=== PATIENT | male | born 1950 | race Caucasian/White ===

== ENCOUNTER 2016-12-08 17:13 | Inpatient (IN) | payer MEDICARE ==
[~2016-12-08] VITALS: Ht 175.3 cm; Wt 71.7 kg
[~2016-12-08 17:13] MED LIST: ALEN70TA5 PO; ATOR10TA60 PO; CERT400S SQ; FOLI1TAB16 PO; HYDR200T PO; HYDR200T5 PO; LOSA50TA6 PO; MELA5TAB PO; OMEP20CA9 PO; PRED5TAB PO; TAMS0.4C97 PO; THIA100T4 PO; TRAM50TA PO; ZOLP5TAB PO
[2016-12-08] MEDS ORDERED: ONDANSETRON PF 4 MG/2 ML VIAL. IV ONE (19:30)
[2016-12-08] MEDS ORDERED: IV NORMAL SALINE 1000ML BAG 1,000 ML IV ONE (19:30)
[2016-12-08 19:36] LABS: BASO # 0.1 x10^3/uL (0.0-0.2); BASO % 2 % (0-3); EOS % 5 % (0-3); HEMATOCRIT 29.1 % (39.0-53.0); HEMOGLOBIN 9.4 g/dL (13.0-17.5); LYMPH # 0.6 x10^3/uL (1.0-4.8); LYMPH % 14 % (24-48); MEAN CORPUSCULAR HEMOGLOBIN 28 pg (25-35); MEAN CORPUSCULAR HGB CONC 32 g/dL (31-37); MEAN CORPUSCULAR VOLUME 86 fL (79-100); MONO % 15 % (0-9); NEUT % 65 % (31-73); PLATELET COUNT 50 x10^3/uL (140-400); RED BLOOD COUNT 3.39 x10^6/uL (4.30-5.70); RED CELL DISTRIBUTION WIDTH 15.4 % (11.5-14.5); WHITE BLOOD COUNT 4.6 x10^3/uL (4.0-11.0)
[2016-12-08 19:47] LABS: CALCIUM 10.2 mg/dL (8.5-10.1); CREATININE 2.8 mg/dL (0.7-1.3); GFR 22.6; POTASSIUM 3.9 mmol/L (3.5-5.1)
[2016-12-08 20:25] LABS: ALBUMIN 2.9 g/dL (3.4-5.0); DIRECT BILIRUBIN 4.4 mg/dL (0.0-0.2); TOTAL BILIRUBIN 6.3 mg/dL (0.2-1.0); TOTAL PROTEIN 8.4 g/dL (6.4-8.2)
[2016-12-08] MEDS ORDERED: ONDANSETRON PF 4 MG/2 ML VIAL. IV PRN (21:00)
[2016-12-08 21:08] LABS: INR 1.5 (0.8-1.1); PROTHROMBIN TIME PATIENT 17.1 SEC (11.7-14.0)
--- NOTE | 2016-12-08 21:12 | PHYS DOC ---
Past Medical History Past Medical History: Arthritis, CAD, High Cholesterol, Hypertension, Kidney Stone, Lung Disease Additional Past Medical Histor: RA, CIRRHOSIS, HEP C Past Surgical History: Cholecystectomy, Other Additional Past Surgical Histo: nasal surgery and open heart 40 yrs ago Alcohol Use: Heavy Drug Use: None Adult General Chief Complaint Chief Complaint: ABNORMAL LABS HPI HPI 66-year-old male presents from Dr. Razo' office for concern of abnormal labs. Patient had laboratory workup there that indicated acute renal failure with elevated BUN/creatinine. She was concerned wanted him brought in for evaluation. Upon arrival the patient appears somewhat confused but admits to drinking multiple alcoholic beverages prior to arrival. He admits he has history of hepatitis and cirrhosis. He denies any significant abdominal pain but does note that he's had mild abdominal swelling. He denies any fever or chills. He denies any nausea or vomiting. He admits that he is not stay well- hydrated at home. Review of Systems Review of Systems Constitutional: Denies fever or chills [] Eyes: Denies change in visual acuity, redness, or eye pain [] HENT: Denies nasal congestion or sore throat [] Respiratory: Denies cough or shortness of breath [] Cardiovascular: No additional information not addressed in HPI [] GI: Denies abdominal pain, nausea, vomiting, bloody stools or diarrhea [] : Denies dysuria or hematuria [] Musculoskeletal: Denies back pain or joint pain [] Integument: Denies rash or skin lesions [] Neurologic: Denies headache, focal weakness or sensory changes [] Endocrine: Denies polyuria or polydipsia [] Current Medications Current Medications Current Medications Medications (Trade) Dose Ordered Sig/Ze Start Time Stop Time Status Last Admin Dose Admin Ondansetron HCl (Zofran) 4 mg 1X ONCE 12/08/16 19:30 12/08/16 19:32 DC 12/08/16 19:34 4 MG Ondansetron HCl 4 mg 4 mg PRN Q8HRS PRN 12/08/16 21:00 12/09/16 20:59 Sodium Chloride (Iv Sodium Chloride 0.9% 1000ml Bag) 1,000 ml @ 125 mls/hr Q8H 12/08/16 21:00 12/09/16 20:59 Allergies Allergies Allergies Coded Allergies Type Severity Reaction Last Updated Verified No Known Drug Allergies 04/21/14 No Physical Exam Physical Exam Constitutional: Well developed, well nourished, no acute distress, non-toxic appearance. [] HENT: Normocephalic, atraumatic, bilateral external ears normal, oropharynx moist, no oral exudates, nose normal. [] Eyes: PERRLA, EOMI, no discharge, scleral icterus. [] Neck: Normal range of motion, no tenderness, supple, no stridor. [] Cardiovascular:Heart rate regular rhythm, no murmur [] Lungs & Thorax: Bilateral breath sounds clear to auscultation [] Abdomen: Bowel sounds normal, soft, no tenderness, mild distention no masses, no pulsatile masses. [] Skin: Warm, dry, no erythema, no rash. [] Back: No tenderness, no CVA tenderness. [] Extremities: No tenderness, no cyanosis, no clubbing, ROM intact, no edema. [] Neurologic: Alert and oriented X 3, slightly confused, normal motor function, normal sensory function, no focal deficits noted. [] Psychologic: Affect normal, judgement normal, mood normal. [] Current Patient Data Vital Signs Vital Signs Date Time Temp Pulse Resp B/P Pulse Ox O2 Delivery O2 Flow Rate FiO2 12/08/16 19:25 97.9 85 20 122/55 98 Room Air 97.9 Lab Values Laboratory Tests Test 12/08/16 19:25 White Blood Count 4.6x10^3/uL (4.0-11.0) Red Blood Count 3.39x10^6/uL (4.30-5.70) L Hemoglobin 9.4g/dL (13.0-17.5) L Hematocrit 29.1% (39.0-53.0) L Mean Corpuscular Volume 86fL (79-100) Mean Corpuscular Hemoglobin 28pg (25-35) Mean Corpuscular Hemoglobin Concent 32g/dL (31-37) Red Cell Distribution Width 15.4% (11.5-14.5) H Platelet Count 50x10^3/uL (140-400) L Neutrophils (%) (Auto) 65% (31-73) Lymphocytes (%) (Auto) 14% (24-48) L Monocytes (%) (Auto) 15% (0-9) H Eosinophils (%) (Auto) 5% (0-3) H Basophils (%) (Auto) 2% (0-3) Neutrophils # (Auto) 3.0x10^3uL (1.8-7.7) Lymphocytes # (Auto) 0.6x10^3/uL (1.0-4.8) L Monocytes # (Auto) 0.7x10^3/uL (0.0-1.1) Eosinophils # (Auto) 0.2x10^3/uL (0.0-0.7) Basophils # (Auto) 0.1x10^3/uL (0.0-0.2) Prothrombin Time 17.1SEC (11.7-14.0) H Prothrombin Time INR 1.5 (0.8-1.1) H Sodium Level 135mmol/L (136-145) L Potassium Level 3.9mmol/L (3.5-5.1) Chloride Level 96mmol/L (98-107) L Carbon Dioxide Level 25mmol/L (21-32) Anion Gap 14 (6-14) Blood Urea Nitrogen 36mg/dL (8-26) H Creatinine 2.8mg/dL (0.7-1.3) H Estimated GFR (Cockcroft-Gault) 22.6 Glucose Level 86mg/dL (70-99) Calcium Level 10.2mg/dL (8.5-10.1) H Total Bilirubin 6.3mg/dL (0.2-1.0) H Direct Bilirubin 4.4mg/dL (0.0-0.2) H Aspartate Amino Transferase (AST) 259U/L (15-37) H Alanine Aminotransferase (ALT) 73U/L (16-63) H Alkaline Phosphatase 314U/L (46-116) H Ammonia 20mcmol/L (11-34) Total Protein 8.4g/dL (6.4-8.2) H Albumin 2.9g/dL (3.4-5.0) L Ethyl Alcohol Level 72mg/dL (0-10) H Laboratory Tests 12/08/16 19:25 Laboratory Tests 12/08/16 19:25 EKG EKG EKG is internal by hi shows a sinus rhythm with rate of 72 bpm. There are some mild T-wave inversion to lead V2 and V3 as well as lead 3. There is artifact seen in several leads including V6. Radiology/Procedures Radiology/Procedures [] Course & Med Decision Making Course & Med Decision Making Pertinent Labs and Imaging studies reviewed. (See chart for details) 58-year-old male presents with abnormal labs and has lab work today to indicates acute renal failure with a creatinine at 2.8 and a BUN of 36. He has hyperbilirubinemia as well an elevated total bilirubin. His AST and ALT are also significantly elevated. An ammonia level was checked and was normal. His ethanol level is positive at 72. I discussed the need to admit him for these laboratory abnormalities with the hospitalist, Dr. Monsivais, who agreed to accept the patient for further evaluation and treatment. Patient was given IV fluids in the department and placed on a maintenance rate as well. Dragon Disclaimer Dragon Disclaimer This electronic medical record was generated, in whole or in part, using a voice recognition dictation system. Departure Departure Impression: Primary Impression: Acute renal failure Additional Impressions: Hyperbilirubinemia Liver function abnormality Disposition: ADMITTED INPATIENT Admitting Physician: Kimberlee Monsivais Condition: STABLE Referrals: JITENDRA RAZO MD (PCP) Problem Qualifiers TARAH STARK DO Dec 08, 2016 21:12
--- NOTE | 2016-12-08 22:45 | PDOC1 ---
History and Physical Date of Admission Date of Admission DATE: 12/08/16 TIME: 22:45 Identification/Chief Complaint Chief Complaint labs, sent by primary care Source Source: Chart review, Patient History of Present Illness History of Present Illness Mr. Belle is a 66-year-old male sent to ER by Dr. Razo' office for abnormal labs. Reported new renal dysfunction. Pt has now new complaints, had appeared confused to the ER physician, but just seemed weak to me, needing help to get adjusted in bed in the ER. He has no complaint, but admits he has history of hepatitis and cirrhosis. I asked him why he would keep drinking when Dr. Razo had told him about cirrhosis, and he was not sure. He reports drinking a pint of whiskey every day. No early, but mild abdominal swelling. Past Medical History Cardiovascular: HTN, Hyperlipidemia Pulmonary: COPD Heme/Onc: No pertinent hx Hepatobiliary: Cirrhosis, Other (Hep?) Musculoskeletal: low back pain Rheumatologic: Rheumatoid arthritis ENT: No pertinent hx Renal/: No pertinent hx Endocrine: No pertinent hx, Osteoporosis Dermatology: No pertinent hx Past Surgical History Past Surgical History: Cholecystectomy, Other Family History Family History lives alone, no family he mentioned for me to call Family History: No Significant Social History Smoke: No ALCOHOL: heavy Drugs: None Current Problem List Problem List Problems Medical Problems: (1) Acute renal failure Status: Acute (2) Dehydration Status: Acute (3) Hyperbilirubinemia Status: Acute (4) Liver function abnormality Status: Acute Problems: Current Medications Current Medications Current Medications Sodium Chloride (Iv Sodium Chloride 0.9% 1000ml Bag) 1,000 ml @ 1,000 mls/hr 1X ONCE IV Last administered on 12/08/16 19:32; Start 12/08/16 at 19:30; Stop 12/08/16 at 20:29; Status DC Ondansetron HCl (Zofran) 4 mg 1X ONCE IV Last administered on 12/08/16 19:34 ; Start 12/08/16 at 19:30; Stop 12/08/16 at 19:32; Status DC Ondansetron HCl 4 mg 4 mg PRN Q8HRS PRN IV NAUSEA/VOMITING; Start 12/08/16 at 21:00; Stop 12/09/16 at 20:59 Sodium Chloride (Iv Sodium Chloride 0.9% 1000ml Bag) 1,000 ml @ 125 mls/hr Q8H IV ; Start 12/08/16 at 21:00; Stop 12/09/16 at 20:59 Active Scripts Active Vitamin B-1 (Thiamine Hcl) 100 Mg Tablet 100 Mg PO BID Folic Acid 1 Mg Tablet 1 Mg PO DAILY Flomax (Tamsulosin Hcl) 0.4 Mg Cap.er.24h 0.4 Mg PO QHS Reported Omeprazole 20 Mg Capsule.dr 1 Cap PO DAILY Melatonin 5 Mg Tablet 5 Mg PO HS Tramadol Hcl 50 Mg Tablet 1 Tab PO PRN Q6HRS Alendronate Sodium 70 Mg Tablet 1 Tab PO WEEKLY Ambien (Zolpidem Tartrate) 5 Mg Tablet 1 Tab PO QHS Atorvastatin Calcium 10 Mg Tablet 1 Tab PO HS Losartan Potassium 50 Mg Tablet 50 Mg PO DAILY Prednisone 5 Mg Tablet 5 Mg PO DAILY Plaquenil (Hydroxychloroquine Sulfate) 200 Mg Tablet 200 Mg PO BID Plaquenil (Hydroxychloroquine Sulfate) 200 Mg Tablet 200 Mg PO BID Cimzia (Certolizumab Pegol) 400 Mg/2 Ml Syringekit 400 Mg SQ Allergies Allergies: Coded Allergies: No Known Drug Allergies (Unverified , 04/21/14) ROS General: No: Appetite, Chills, Fatigue, Malaise, Night Sweats, Other PSYCHOLOGICAL ROS: No: Anxiety, Behavioral Disorder, Concentration difficultie , Decreased libido, Depression, Disorientation, Hallucinations, Hostility, Irritablity, Memory difficulties, Mood Swings, Obsessive thoughts, Other, Physical abuse, Sexual abuse, Sleep disturbances, Suicidal ideation Eyes: No Blurry vision, No Decreased vision, No Double vision, No Dry eyes, No Excessive tearing, No Eye Pain, No Itchy Eyes, No Loss of vision, No Other, No Photophobia, No Scotomata, No Uses contacts, No Uses glasses HEENT: No: Epistaxis, Heacaches, Hearing change, Nasal congestion, Nasal discharge, Oral lesions, Other, Sinus pain, Sneezing, Snoring, Sore Throat, Tinnitus, Vertigo, Visual Changes, Vocal changes Respiratory: No: Cough, Hemoptysis, Orthopnea, Other, Pleuritic Pain, SOB with excertion, Shortness of breath, Sputum Changes, Stridor, Tachypnea, Wheezing Cardiovascular: No Chest Pain, No Edema, No Lt Headedness, No Orthopnea, No Other, No Palpitations, No Paroxysmal Noc. Dyspnea Gastrointestinal: No Abdominal Pain, No Constipation, No Diarrhea, No Hematochezia, No Melena, No Nausea, No Other, No Vomiting Genitourinary: No , No , No , No , No , No , No , No Discharge, No Dysuria, No Flank Pain, No Frequency, No Hematuria, No Incontinence, No Other, No Pain, No Retention, No Urgency Musculoskeletal: Yes Joint Stiffness, No Gait Disturbance, No Joint Pain, No Joint Swelling, No Muscle Pain, No Muscular Weakness, No Other, No Pain In:, No Swelling In: Neurological: No Behavorial Changes, No Bowel/Bladder ControlChng, No Confusion , No Dizziness, No Gait Disturbance, No Headaches, No Impaired Coord/balance, No Memory Loss, No Numbness/Tingling, No Other, No Seizures, No Speech Problems , No Tremors, No Visual Changes, No Weakness Skin: No Acne, No Dry Skin, No Eczema, No Hair Changes, No Lumps, No Mole Changes, No Mottling, No Nail Changes, No Other, No Pruritus, No Rash, No Skin Lesion Changes Physical Exam General: Alert, Oriented X3, Cooperative, No acute distress HEENT: Atraumatic, PERRLA, EOMI, Mucous membr. moist/pink, Other (min icterus, sclera injected) Lungs: Clear to auscultation Abdomen: Normal bowel sounds, Soft, No tenderness Rectal Exam: deferred Extremities: No clubbing, No cyanosis, No edema, Normal pulses Skin: No rashes, No breakdown, No significant lesion Neuro: Normal speech, Normal tone, Cranial nerves 3-12 NL Psych/Mental Status: Mood NL Vitals Vitals Vital Signs Date Time Temp Pulse Resp B/P Pulse Ox O2 Delivery O2 Flow Rate FiO2 12/08/16 19:25 97.9 85 20 122/55 98 Room Air 97.9 Labs Labs Laboratory Tests Test 12/08/16 19:25 White Blood Count 4.6x10^3/uL (4.0-11.0) Red Blood Count 3.39x10^6/uL (4.30-5.70) Hemoglobin 9.4g/dL (13.0-17.5) Hematocrit 29.1% (39.0-53.0) Mean Corpuscular Volume 86fL (79-100) Mean Corpuscular Hemoglobin 28pg (25-35) Mean Corpuscular Hemoglobin Concent 32g/dL (31-37) Red Cell Distribution Width 15.4% (11.5-14.5) Platelet Count 50x10^3/uL (140-400) Neutrophils (%) (Auto) 65% (31-73) Lymphocytes (%) (Auto) 14% (24-48) Monocytes (%) (Auto) 15% (0-9) Eosinophils (%) (Auto) 5% (0-3) Basophils (%) (Auto) 2% (0-3) Neutrophils # (Auto) 3.0x10^3uL (1.8-7.7) Lymphocytes # (Auto) 0.6x10^3/uL (1.0-4.8) Monocytes # (Auto) 0.7x10^3/uL (0.0-1.1) Eosinophils # (Auto) 0.2x10^3/uL (0.0-0.7) Basophils # (Auto) 0.1x10^3/uL (0.0-0.2) Prothrombin Time 17.1SEC (11.7-14.0) Prothromb Time International Ratio 1.5 (0.8-1.1) Sodium Level 135mmol/L (136-145) Potassium Level 3.9mmol/L (3.5-5.1) Chloride Level 96mmol/L (98-107) Carbon Dioxide Level 25mmol/L (21-32) Anion Gap 14 (6-14) Blood Urea Nitrogen 36mg/dL (8-26) Creatinine 2.8mg/dL (0.7-1.3) Estimated GFR (Cockcroft-Gault) 22.6 Glucose Level 86mg/dL (70-99) Calcium Level 10.2mg/dL (8.5-10.1) Total Bilirubin 6.3mg/dL (0.2-1.0) Direct Bilirubin 4.4mg/dL (0.0-0.2) Aspartate Amino Transf (AST/SGOT) 259U/L (15-37) Alanine Aminotransferase (ALT/SGPT) 73U/L (16-63) Alkaline Phosphatase 314U/L (46-116) Ammonia 20mcmol/L (11-34) Total Protein 8.4g/dL (6.4-8.2) Albumin 2.9g/dL (3.4-5.0) Ethyl Alcohol Level 72mg/dL (0-10) Laboratory Tests Test 12/08/16 19:25 White Blood Count 4.6x10^3/uL (4.0-11.0) Red Blood Count 3.39x10^6/uL (4.30-5.70) Hemoglobin 9.4g/dL (13.0-17.5) Hematocrit 29.1% (39.0-53.0) Mean Corpuscular Volume 86fL (79-100) Mean Corpuscular Hemoglobin 28pg (25-35) Mean Corpuscular Hemoglobin Concent 32g/dL (31-37) Red Cell Distribution Width 15.4% (11.5-14.5) Platelet Count 50x10^3/uL (140-400) Neutrophils (%) (Auto) 65% (31-73) Lymphocytes (%) (Auto) 14% (24-48) Monocytes (%) (Auto) 15% (0-9) Eosinophils (%) (Auto) 5% (0-3) Basophils (%) (Auto) 2% (0-3) Neutrophils # (Auto) 3.0x10^3uL (1.8-7.7) Lymphocytes # (Auto) 0.6x10^3/uL (1.0-4.8) Monocytes # (Auto) 0.7x10^3/uL (0.0-1.1) Eosinophils # (Auto) 0.2x10^3/uL (0.0-0.7) Basophils # (Auto) 0.1x10^3/uL (0.0-0.2) Prothrombin Time 17.1SEC (11.7-14.0) Prothromb Time International Ratio 1.5 (0.8-1.1) Sodium Level 135mmol/L (136-145) Potassium Level 3.9mmol/L (3.5-5.1) Chloride Level 96mmol/L (98-107) Carbon Dioxide Level 25mmol/L (21-32) Anion Gap 14 (6-14) Blood Urea Nitrogen 36mg/dL (8-26) Creatinine 2.8mg/dL (0.7-1.3) Estimated GFR (Cockcroft-Gault) 22.6 Glucose Level 86mg/dL (70-99) Calcium Level 10.2mg/dL (8.5-10.1) Total Bilirubin 6.3mg/dL (0.2-1.0) Direct Bilirubin 4.4mg/dL (0.0-0.2) Aspartate Amino Transf (AST/SGOT) 259U/L (15-37) Alanine Aminotransferase (ALT/SGPT) 73U/L (16-63) Alkaline Phosphatase 314U/L (46-116) Ammonia 20mcmol/L (11-34) Total Protein 8.4g/dL (6.4-8.2) Albumin 2.9g/dL (3.4-5.0) Ethyl Alcohol Level 72mg/dL (0-10) VTE Prophylaxis Ordered VTE Prophylaxis Devices: No VTE Pharmacological Prophylaxi: Yes Assessment/Plan Assessment/Plan Acute renal failure, w/u w. US, renal lytes, poss. ATN, consult renal Biliary dysfunction, known cirrhosis per patient, continued EtOH abuse EtOH use today after being seen in Dr. Razo clinic transaminitis, abd US, EtOH use, repeat chem 12, GI consult, check GGTP, hep panel hypercalcemia, check ionized, Scan abd, concern for malignancy, may need further foy he reports prior history of hepatitis, but is unsure of any status or letter moderate malnutrition anemia, thrombocytopenia, Heme consulted Rheumatoid arthritis, plaquenel, prednisone insomnia, ambien admit GHADA PHILLIPS MD Dec 08, 2016 22:45
[2016-12-08 22:47] VITALS: BP 114/48
[2016-12-08 22:48] VITALS: BP 114/48
--- NOTE | 2016-12-09 00:24 | RAD ---
PROCEDURE Complete abdominal ultrasound. HISTORY Acute renal failure. TECHNIQUE Real-time ultrasound imaging of the abdomen is performed. COMPARISON CT abdomen pelvis without contrast August 29, 2016. Complete abdominal ultrasound, June 09, 2016. FINDINGS The liver measures 14.8 cm in length. The echotexture is coarse and heterogeneous and increased in echogenicity. There is subtle nodular contour appear of the liver. Portal flow is hepatopetal. Recannulized paraumbilical vein is seen. The pancreas is not well seen. Portion seen unremarkable. The gallbladder is surgically absent. No extrahepatic biliary ductal dilatation is seen and the extrahepatic bile duct measures 4 mm. The right kidney measures 9.9 cm in length and no hydronephrosis or renal mass or perinephric fluid collection is seen. The left kidney measures 11.1 cm in length and no hydronephrosis or renal mass or perinephric fluid collection is seen. The spleen measures 13.8 cm in length and is homogeneous in appearance. A splenule is noted. No focal aneurysmal dilatation of the abdominal aorta is seen. Distal abdominal aorta is obscured. The IVC is unremarkable. No ascites is seen. Bladder is not well distended. No obvious abnormality. IMPRESSION 1. Cirrhotic liver. Recannulized paraumbilical vein. 2. Mild splenomegaly. 3. No hydronephrosis. Electronically signed by: Don Leonardo MD (Dec 09, 2016 00:22:21)
[2016-12-09] MEDS: TRAMADOL 50 MG TABLET. PO PRN (00:43)
[2016-12-09] MEDS: ZOLPIDEM 5 MG TABLET. PO PRN ×2 (00:43→21:25)
[2016-12-09] MEDS: IV NORMAL SALINE 1000ML BAG 1,000 ML IV SCH ×3 (00:45→13:00)
--- NOTE | 2016-12-09 01:23 | ACF ---
Admission Forms Criteria RENAL FAILURE, ACUTE Clinical Indications for Admission to Inpatient Care ( Place 'X' for any and all applicable criteria): Admission is indicated for ALL (if I & II) or III of the following [A](2)(3)(4)( 5)(6)(7): [ ]I. Acute renal failure as indicated by ANY ONE of the following: [ ]a) A 3-fold rise in serum creatinine from baseline [ ]b) Serum creatinine greater than 4 mg/dL (354 micromoles/L) with an acute rise greater than 0.5 mg/dL (44.2 micromoles/L) [ ]c) Reduction of more than 75% in estimated glomerular filtration rate from baseline [ ]d) Estimated glomerular filtration rate less than 35 mL/min/1.73m2 (0.59mL/sec/1.73m2)in a child up to 18 years of age [ ]e) Anuria indicated by ALL of the following: [ ]i) Adequate volume status [ ]ii) Cessation of urine output indicated by ANY ONE of the following: [ ]1) Urine output less than 0.3 mL/kg/hr for 24 hours [ ]2) Anuria (urine output less than 0.1 mL/kg/ hr) for 12 hours [ ] II. Renal failure cannot be managed in an outpatient setting or observational care setting as indicating by ANY ONE of the following: [ ]a) Altered mental status that is severe or persistent [ ]b) Volume overload or Respiratory distress (eg, clinically significant pulmonary edema) that is severe or persistent [ ]c) Cardiac arrhythmias of immediate concern [ ]d) Hemodynamic instability [ ]e) Clinically significant electrolyte abnormality that requires inpatient care (eg, hyperkalemia with severe ECG findings)[B] [ ]f) Clinically significant metabolic abnormality (eg, acidosis) that is severe or persistent [ ]g) Acute treatment of renal failure (eg, renal replacement therapy) not feasible or appropriate in observational care setting [ ]h) Clinical situation too unstable or uncertain (eg, inadequate urine output, ongoing decline in renal function, etiology unclear) [ ]i) Necessary support and caregiver ability to comply with outpatient treatment cannot be arranged in observation care timeframe (eg, within 24 hours) [ ]j) Other significant finding or clinical condition judged not to be within scope of observation care [X]III.General contraindications and/or Inappropriate clinical situations for Observational Care in patients with Acute Renal Failure, when ANY ONE of the following is required: [X]a) Prediction of prolongation of LOS based on ANY ONE of the following may be considered as a contraindication for observational care 2, 3, 4, 5, 6, 7, 8 , 9, 10, 11 [X]i) Age > 65 yrs. [ ]ii) Patient arriving by ambulance [ ]iii) Patient with high acuity [ ]iv) Patient requiring vital sign monitoring [ ]v) Patient on IV medication [ ]b) Systolic blood pressures 180mmHg 3,12 [ ]c) Patient with altered mental status including delirium and other alteration of consciousness, (3) [ ]d) Patient whose discharge disposition will be to a jail home or rehabilitation home should not be managed in Emergency Department Observation Unit. CMS rule requires 3 days hospital stay before such placement.3,13 [ ]e) Patient with failure to thrive due to broad array of etiologies 3, 16,17 [ ]f) Inability to ambulate 3,14 Extended stay beyond goal length of stay may be needed for(13) [ ]a) Continuing uremic complications [ ]b) Care for comorbidities [ ]c) acute renal failure [ ]d) Need for dialysis The original [employer] content created by [employer] has been revised. The portions of the content which have been revised are identified through the use of italic text or in bold, and [facility] has neither reviewed nor approved the modified material. All other unmodified content is copyright [employer] [facility]. Please see references footnoted in the original [employer] [facility] edition 2016 Admission Criteria Met?: Yes OSCAR GASCA Dec 09, 2016 01:23
[2016-12-09 05:03] LABS: BASO % 1 % (0-3); EOS % 4 % (0-3); HEMATOCRIT 26.4 % (39.0-53.0); HEMOGLOBIN 8.4 g/dL (13.0-17.5); LYMPH # 0.7 x10^3/uL (1.0-4.8); LYMPH % 18 % (24-48); MEAN CORPUSCULAR HEMOGLOBIN 28 pg (25-35); MEAN CORPUSCULAR HGB CONC 32 g/dL (31-37); MEAN CORPUSCULAR VOLUME 87 fL (79-100); MONO % 14 % (0-9); NEUT % 63 % (31-73); PLATELET COUNT 40 x10^3/uL (140-400); RED BLOOD COUNT 3.02 x10^6/uL (4.30-5.70); RED CELL DISTRIBUTION WIDTH 15.8 % (11.5-14.5); WHITE BLOOD COUNT 4.1 x10^3/uL (4.0-11.0)
[2016-12-09 05:42] LABS: ALBUMIN 2.4 g/dL (3.4-5.0); ALBUMIN/GLOBULIN RATIO 0.5 (1.0-1.7); CALCIUM 9.2 mg/dL (8.5-10.1); CREATININE 2.6 mg/dL (0.7-1.3); GFR 24.7; TOTAL BILIRUBIN 5.6 mg/dL (0.2-1.0); TOTAL PROTEIN 6.8 g/dL (6.4-8.2)
[2016-12-09 06:04] LABS: INR 1.7 (0.8-1.1); PROTHROMBIN TIME PATIENT 18.6 SEC (11.7-14.0)
[2016-12-09 07:00] VITALS: BP 97/44
[2016-12-09] MEDS ORDERED: PANTOPRAZOLE 40 MG TABLET. PO SCH (07:30)
--- NOTE | 2016-12-09 07:48 | EKG ---
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
[2016-12-09] MEDS ORDERED: LOSARTAN POTASSIUM 50 MG TABLET. PO SCH (09:00)
[2016-12-09] MEDS ORDERED: HYDROXYCHLOROQUINE 200 MG TABLET PO SCH (09:00)
[2016-12-09] MEDS: HYDROXYCHLOROQUINE 200 MG TABLET PO SCH ×2 (09:35→21:25)
[2016-12-09] MEDS: THIAMINE 100 MG TABLET. PO SCH ×2 (09:35→21:25)
[2016-12-09] MEDS: PREDNISONE 5 MG TABLET PO SCH (09:35)
[2016-12-09] MEDS: FOLIC ACID 1 MG TABLET PO SCH (09:36)
[2016-12-09] MEDS ORDERED: ONDANSETRON PF 4 MG/2 ML VIAL. IV PRN (10:29)
--- NOTE | 2016-12-09 10:33 | PDOC2 ---
GI CONSULT Reason For Consult: ?acute liver injury HPI: HPI: 66 y/o male previously evaluated by Dr. Sheldon. Reports saw his PCP for upper abdominal discomfort and nausea (noted on last GI consult 08/2016) and was advised to come to ER w/ abnormal labs. Admitted w/ JESSICA. H/o alcoholic hepatitis; labs show bili 6.3 (now 5.6), AST 190, ALT 59, Alk Phos 267, ammonia 20, GGT 1137, ethyl alcohol 72. Has had elevated bili (up to 8) in the past (). US w/ cirrhosis and splenomegaly. Previous CT w/ portal HTN. Describes chronic RUQ discomfort w/ more radiation to epigastrium and LUQ recently. Not bothered by eating. Some nausea w/o vomiting. No reflux. Has occasional constipation. No hematochezia since admission 08/2016. Notes ongoing yellowing of skin/eyes. H/o colonoscopies w/ last by Dr. Villatoro in 2015 showing polyps, diverticulosis and hemorrhoids. H/o high-grade GERD w/ stricture and food impaction w/ last EGD also in 2015. On omeprazole BID and carafate. Additional h/o RA w/ previous MTX use, now on prednisone and Plaquenil. Not sure about NSAID use but none listed on med list he shows me. Drinks about 1 pint of whiskey daily. Hep panel negative 08/2016. PMH: PMH: HTN, HLD, COPD (prior respiratory failure), RA, "hepatitis" (teenager), osteoporosis, alcoholism, BCC (excised), cholecystectomy FH: Family History: Cancer (stomach cancer - grandfather, uncle), Other (PUD - sister) Social History: Smoke: Quit ALCOHOL: heavy Drugs: None ROS: GEN: Denies fevers, chills, sweats HEENT: Denies blurred vision, sore throat CV: Denies chest pain RESP: Denies shortness of air, cough GI: Per HPI : Denies hematuria, dysuria ENDO: Denies weight changes NEURO: +confusion MSK: Denies weakness, joint pain/swelling SKIN: +jaundice VItals: Vitals: Vital Signs Date Time Temp Pulse Resp B/P Pulse Ox O2 Delivery O2 Flow Rate FiO2 12/09/16 09:00 84 97/44 12/09/16 08:00 Room Air 12/09/16 07:00 97.9 18 91 97.9 Labs: Labs: Laboratory Tests Test 12/08/16 19:25 12/09/16 04:10 12/09/16 09:00 White Blood Count 4.6x10^3/uL (4.0-11.0) 4.1x10^3/uL (4.0-11.0) Red Blood Count 3.39x10^6/uL (4.30-5.70) 3.02x10^6/uL (4.30-5.70) Hemoglobin 9.4g/dL (13.0-17.5) 8.4g/dL (13.0-17.5) Hematocrit 29.1% (39.0-53.0) 26.4% (39.0-53.0) Mean Corpuscular Volume 86fL (79-100) 87fL (79-100) Mean Corpuscular Hemoglobin 28pg (25-35) 28pg (25-35) Mean Corpuscular Hemoglobin Concent 32g/dL (31-37) 32g/dL (31-37) Red Cell Distribution Width 15.4% (11.5-14.5) 15.8% (11.5-14.5) Platelet Count 50x10^3/uL (140-400) 40x10^3/uL (140-400) Neutrophils (%) (Auto) 65% (31-73) 63% (31-73) Lymphocytes (%) (Auto) 14% (24-48) 18% (24-48) Monocytes (%) (Auto) 15% (0-9) 14% (0-9) Eosinophils (%) (Auto) 5% (0-3) 4% (0-3) Basophils (%) (Auto) 2% (0-3) 1% (0-3) Neutrophils # (Auto) 3.0x10^3uL (1.8-7.7) 2.6x10^3uL (1.8-7.7) Lymphocytes # (Auto) 0.6x10^3/uL (1.0-4.8) 0.7x10^3/uL (1.0-4.8) Monocytes # (Auto) 0.7x10^3/uL (0.0-1.1) 0.6x10^3/uL (0.0-1.1) Eosinophils # (Auto) 0.2x10^3/uL (0.0-0.7) 0.2x10^3/uL (0.0-0.7) Basophils # (Auto) 0.1x10^3/uL (0.0-0.2) 0.0x10^3/uL (0.0-0.2) Prothrombin Time 17.1SEC (11.7-14.0) 18.6SEC (11.7-14.0) Prothromb Time International Ratio 1.5 (0.8-1.1) 1.7 (0.8-1.1) Sodium Level 135mmol/L (136-145) 138mmol/L (136-145) Potassium Level 3.9mmol/L (3.5-5.1) 4.0mmol/L (3.5-5.1) Chloride Level 96mmol/L (98-107) 100mmol/L (98-107) Carbon Dioxide Level 25mmol/L (21-32) 21mmol/L (21-32) Anion Gap 14 (6-14) 17 (6-14) Blood Urea Nitrogen 36mg/dL (8-26) 37mg/dL (8-26) Creatinine 2.8mg/dL (0.7-1.3) 2.6mg/dL (0.7-1.3) Estimated GFR (Cockcroft-Gault) 22.6 24.7 Glucose Level 86mg/dL (70-99) 72mg/dL (70-99) Calcium Level 10.2mg/dL (8.5-10.1) 9.2mg/dL (8.5-10.1) Total Bilirubin 6.3mg/dL (0.2-1.0) 5.6mg/dL (0.2-1.0) Direct Bilirubin 4.4mg/dL (0.0-0.2) Aspartate Amino Transf (AST/SGOT) 259U/L (15-37) 190U/L (15-37) Alanine Aminotransferase (ALT/SGPT) 73U/L (16-63) 59U/L (16-63) Alkaline Phosphatase 314U/L (46-116) 267U/L (46-116) Ammonia 20mcmol/L (11-34) Total Protein 8.4g/dL (6.4-8.2) 6.8g/dL (6.4-8.2) Albumin 2.9g/dL (3.4-5.0) 2.4g/dL (3.4-5.0) Ethyl Alcohol Level 72mg/dL (0-10) BUN/Creatinine Ratio 14 (6-20) Gamma Glutamyl Transpeptidase 1137U/L (10-85) Albumin/Globulin Ratio 0.5 (1.0-1.7) Ionized Calcium 1.16mmol/L (1.13-1.32) Allergies: Coded Allergies: No Known Drug Allergies (Unverified , 04/21/14) Medications: Current Medications Medications (Trade) Dose Ordered Sig/Ze Route PRN Reason Start Time Stop Time Status Last Admin Dose Admin Sodium Chloride (Iv Sodium Chloride 0.9% 1000ml Bag) 1,000 ml @ 1,000 mls/hr 1X ONCE IV 12/08/16 19:30 12/08/16 20:29 DC 12/08/16 19:32 Ondansetron HCl 4 mg 4 mg 1X ONCE IV 12/08/16 19:30 12/08/16 19:32 DC 12/08/16 19:34 Sodium Chloride (Iv Sodium Chloride 0.9% 1000ml Bag) 1,000 ml @ 125 mls/hr Q8H IV 12/08/16 21:00 12/09/16 20:59 12/09/16 09:34 Folic Acid (Folic Acid) 1 mg DAILY PO 12/09/16 09:00 12/09/16 09:36 Hydroxychloroquine Sulfate (Plaquenil) 200 mg BID PO 12/09/16 09:00 12/09/16 09:35 Prednisone (Prednisone) 5 mg DAILY PO 12/09/16 09:00 12/09/16 09:35 Thiamine HCl (Vitamin B-1) 100 mg BID PO 12/09/16 09:00 12/09/16 09:35 Tramadol HCl (Ultram) 50 mg PRN Q6HRS PRN PO MODERATE PAIN 12/08/16 23:45 12/09/16 00:43 Zolpidem Tartrate (Ambien) 5 mg PRN QHS PRN PO sleep 12/08/16 23:45 12/09/16 00:43 Pantoprazole Sodium (Protonix) 40 mg DAILYAC PO 12/09/16 07:30 12/09/16 09:34 Imaging: Imaging: Abd US 12/08/16 FINDINGS The liver measures 14.8 cm in length. The echotexture is coarse and heterogeneous and increased in echogenicity. There is subtle nodular contour appear of the liver. Portal flow is hepatopetal. Recannulized paraumbilical vein is seen. The pancreas is not well seen. Portion seen unremarkable. The gallbladder is surgically absent. No extrahepatic biliary ductal dilatation is seen and the extrahepatic bile duct measures 4 mm. The right kidney measures 9.9 cm in length and no hydronephrosis or renal mass or perinephric fluid collection is seen. The left kidney measures 11.1 cm in length and no hydronephrosis or renal mass or perinephric fluid collection is seen. The spleen measures 13.8 cm in length and is homogeneous in appearance. A splenule is noted. No focal aneurysmal dilatation of the abdominal aorta is seen. Distal abdominal aorta is obscured. The IVC is unremarkable. No ascites is seen. Bladder is not well distended. No obvious abnormality. IMPRESSION 1. Cirrhotic liver. Recannulized paraumbilical vein. 2. Mild splenomegaly. 3. No hydronephrosis. PE: GEN: NAD HEENT: Atraumatic, +sclera icteric LUNGS: clear anteriorly HEART: RRR ABD: NABS, S/ND, some tenderness - band-like from RUQ to LUQ EXTREMITY: No edema NEURO/PSYCH: alert, answers most questions appropriately, maybe a little confused A/P: A/P: Alcoholic hepatitis, cirrhosis -on thiamine -US w/ cirrhosis, splenomegaly -Hep panel neg 08/2016 -drinks 1 pint daily GERD -previous EGDs w/ high-grade disease, stricture, food impaction -on BID PPI at home, denies symptoms Nausea -w/o vomiting Upper abd pain RA on prednisone, Plaquenil -previous MTX use CRC screen, h/o polyps -last colonoscopy 2015 JESSICA Anemia, thrombocytopenia -- Will review w/ Dr. Sheldon. NOMI LAGUERRE Dec 09, 2016 10:33
[2016-12-09 11:06] VITALS: BP 103/49
--- NOTE | 2016-12-09 12:04 | PDOC2 ---
CONSULT Date of Consult Date of Consult DATE: 12/09/16 TIME: 12:00 Reason for Consult Reason for Consult: JESSICA Referring Physician Referring Physician: ALAN Identification/Chief Complaint Chief Complaint CONFUSION Source Source: Chart review History of Present Illness Reason for Visit: THIS IS A 66 YR OLD ADMITTED WITH CONFUSION, HX OF ETOH ABUSE. LABS SHOWED A CR OF 2.6 AND T BILI OF 6.3. HX NOTABLE FOR JESSICA IN THE PAST BUT NO NEED FOR HD. APPEARS TO HAVE SOME CKD STAGE 3 WITH CR OF 1.2 AND GFR OF ABOUT 60. HE HAS ALSO NOT BEEN EATING WELL PER REPORT Past Medical History Cardiovascular: HTN, Hyperlipidemia Pulmonary: COPD Heme/Onc: No pertinent hx Hepatobiliary: Cirrhosis, Other (Hep?) Musculoskeletal: low back pain Rheumatologic: Rheumatoid arthritis ENT: No pertinent hx Renal/: Chronic renal insuff, Acute renal failure Endocrine: No pertinent hx, Osteoporosis Dermatology: No pertinent hx Past Surgical History Past Surgical History: Cholecystectomy, Other Family History Family History: No Significant Social History Quit ALCOHOL: heavy Drugs: None Current Problem List Problem List Problems Medical Problems: (1) Acute renal failure Status: Acute (2) Dehydration Status: Acute (3) Hyperbilirubinemia Status: Acute (4) Liver function abnormality Status: Acute Current Medications Current Medications Current Medications Sodium Chloride (Iv Sodium Chloride 0.9% 1000ml Bag) 1,000 ml @ 1,000 mls/hr 1X ONCE IV Last administered on 12/08/16 19:32; Start 12/08/16 at 19:30; Stop 12/08/16 at 20:29; Status DC Ondansetron HCl (Zofran) 4 mg 1X ONCE IV Last administered on 12/08/16 19:34 ; Start 12/08/16 at 19:30; Stop 12/08/16 at 19:32; Status DC Ondansetron HCl 4 mg 4 mg PRN Q8HRS PRN IV NAUSEA/VOMITING; Start 12/08/16 at 21:00; Stop 12/09/16 at 10:30; Status DC Sodium Chloride (Iv Sodium Chloride 0.9% 1000ml Bag) 1,000 ml @ 125 mls/hr Q8H IV Last administered on 12/09/16 09:34; Start 12/08/16 at 21:00; Stop at 20:59 Atorvastatin Calcium (Lipitor) 10 mg HS PO ; Start 12/09/16 at 21:00 Folic Acid (Folic Acid) 1 mg DAILY PO Last administered on 12/09/16 09:36; Start 12/09/16 at 09:00 Hydroxychloroquine Sulfate (Plaquenil) 200 mg BID PO Last administered on 09:35; Start 12/09/16 at 09:00 Hydroxychloroquine Sulfate (Plaquenil) 200 mg BID PO ; Start 12/09/16 at 09:00; Status UNV Losartan Potassium (Cozaar) 50 mg DAILY PO ; Start 12/09/16 at 09:00 Prednisone (Prednisone) 5 mg DAILY PO Last administered on 12/09/16 09:35; Start 12/09/16 at 09:00 Tamsulosin HCl (Flomax) 0.4 mg QHS PO ; Start 12/09/16 at 21:00 Thiamine HCl (Vitamin B-1) 100 mg BID PO Last administered on 12/09/16 09:35; Start 12/09/16 at 09:00 Tramadol HCl (Ultram) 50 mg PRN Q6HRS PRN PO MODERATE PAIN Last administered on 12/09/16 00:43; Start 12/08/16 at 23:45 Zolpidem Tartrate (Ambien) 5 mg PRN QHS PRN PO sleep Last administered on 00:43; Start 12/08/16 at 23:45 Non-Formulary Medication 1 tab WEEKLY PO ; Start 12/15/16 at 09:00; Status UNV Non-Formulary Medication 5 mg HS PO ; Start 12/09/16 at 21:00; Status UNV Pantoprazole Sodium (Protonix) 40 mg DAILYAC PO Last administered on 12/09/16 09:34; Start 12/09/16 at 07:30; Stop 12/09/16 at 10:34; Status DC Ondansetron HCl (Zofran) 4 mg PRN Q6HRS PRN IV NAUSEA/VOMITING; Start 12/09/16 at 10:29 Pantoprazole Sodium (Protonix) 40 mg BIDAC PO ; Start 12/09/16 at 16:30 Active Scripts Active Vitamin B-1 (Thiamine Hcl) 100 Mg Tablet 100 Mg PO BID Folic Acid 1 Mg Tablet 1 Mg PO DAILY Flomax (Tamsulosin Hcl) 0.4 Mg Cap.er.24h 0.4 Mg PO QHS Reported Omeprazole 20 Mg Capsule.dr 1 Cap PO DAILY Melatonin 5 Mg Tablet 5 Mg PO HS Tramadol Hcl 50 Mg Tablet 1 Tab PO PRN Q6HRS Alendronate Sodium 70 Mg Tablet 1 Tab PO WEEKLY Ambien (Zolpidem Tartrate) 5 Mg Tablet 1 Tab PO QHS Atorvastatin Calcium 10 Mg Tablet 1 Tab PO HS Losartan Potassium 50 Mg Tablet 50 Mg PO DAILY Prednisone 5 Mg Tablet 5 Mg PO DAILY Plaquenil (Hydroxychloroquine Sulfate) 200 Mg Tablet 200 Mg PO BID Plaquenil (Hydroxychloroquine Sulfate) 200 Mg Tablet 200 Mg PO BID Cimzia (Certolizumab Pegol) 400 Mg/2 Ml Syringekit 400 Mg SQ Allergies Allergies: Coded Allergies: No Known Drug Allergies (Unverified , 04/21/14) ROS Review of System UNABLE TO OBTAIN Physical Exam General: Cooperative HEENT: Atraumatic, PERRLA, EOMI Lungs: Clear to auscultation Heart: Regular rate, Normal S1, No murmurs Abdomen: Normal bowel sounds Extremities: No clubbing Neuro: Other (CONFUSED BUT NO ASYMMETRY) MUSCULOSKELETAL: No deformity, No swelling Vitals VITALS Vital Signs Date Time Temp Pulse Resp B/P Pulse Ox O2 Delivery O2 Flow Rate FiO2 12/09/16 11:06 97.9 82 18 103/49 93 Room Air 97.9 Labs Labs Laboratory Tests Test 12/08/16 19:25 12/09/16 04:10 12/09/16 09:00 White Blood Count 4.6x10^3/uL (4.0-11.0) 4.1x10^3/uL (4.0-11.0) Red Blood Count 3.39x10^6/uL (4.30-5.70) 3.02x10^6/uL (4.30-5.70) Hemoglobin 9.4g/dL (13.0-17.5) 8.4g/dL (13.0-17.5) Hematocrit 29.1% (39.0-53.0) 26.4% (39.0-53.0) Mean Corpuscular Volume 86fL (79-100) 87fL (79-100) Mean Corpuscular Hemoglobin 28pg (25-35) 28pg (25-35) Mean Corpuscular Hemoglobin Concent 32g/dL (31-37) 32g/dL (31-37) Red Cell Distribution Width 15.4% (11.5-14.5) 15.8% (11.5-14.5) Platelet Count 50x10^3/uL (140-400) 40x10^3/uL (140-400) Neutrophils (%) (Auto) 65% (31-73) 63% (31-73) Lymphocytes (%) (Auto) 14% (24-48) 18% (24-48) Monocytes (%) (Auto) 15% (0-9) 14% (0-9) Eosinophils (%) (Auto) 5% (0-3) 4% (0-3) Basophils (%) (Auto) 2% (0-3) 1% (0-3) Neutrophils # (Auto) 3.0x10^3uL (1.8-7.7) 2.6x10^3uL (1.8-7.7) Lymphocytes # (Auto) 0.6x10^3/uL (1.0-4.8) 0.7x10^3/uL (1.0-4.8) Monocytes # (Auto) 0.7x10^3/uL (0.0-1.1) 0.6x10^3/uL (0.0-1.1) Eosinophils # (Auto) 0.2x10^3/uL (0.0-0.7) 0.2x10^3/uL (0.0-0.7) Basophils # (Auto) 0.1x10^3/uL (0.0-0.2) 0.0x10^3/uL (0.0-0.2) Prothrombin Time 17.1SEC (11.7-14.0) 18.6SEC (11.7-14.0) Prothromb Time International Ratio 1.5 (0.8-1.1) 1.7 (0.8-1.1) Sodium Level 135mmol/L (136-145) 138mmol/L (136-145) Potassium Level 3.9mmol/L (3.5-5.1) 4.0mmol/L (3.5-5.1) Chloride Level 96mmol/L (98-107) 100mmol/L (98-107) Carbon Dioxide Level 25mmol/L (21-32) 21mmol/L (21-32) Anion Gap 14 (6-14) 17 (6-14) Blood Urea Nitrogen 36mg/dL (8-26) 37mg/dL (8-26) Creatinine 2.8mg/dL (0.7-1.3) 2.6mg/dL (0.7-1.3) Estimated GFR (Cockcroft-Gault) 22.6 24.7 Glucose Level 86mg/dL (70-99) 72mg/dL (70-99) Calcium Level 10.2mg/dL (8.5-10.1) 9.2mg/dL (8.5-10.1) Total Bilirubin 6.3mg/dL (0.2-1.0) 5.6mg/dL (0.2-1.0) Direct Bilirubin 4.4mg/dL (0.0-0.2) Aspartate Amino Transf (AST/SGOT) 259U/L (15-37) 190U/L (15-37) Alanine Aminotransferase (ALT/SGPT) 73U/L (16-63) 59U/L (16-63) Alkaline Phosphatase 314U/L (46-116) 267U/L (46-116) Ammonia 20mcmol/L (11-34) Total Protein 8.4g/dL (6.4-8.2) 6.8g/dL (6.4-8.2) Albumin 2.9g/dL (3.4-5.0) 2.4g/dL (3.4-5.0) Ethyl Alcohol Level 72mg/dL (0-10) BUN/Creatinine Ratio 14 (6-20) Gamma Glutamyl Transpeptidase 1137U/L (10-85) Albumin/Globulin Ratio 0.5 (1.0-1.7) Ionized Calcium 1.16mmol/L (1.13-1.32) Laboratory Tests Test 12/08/16 19:25 12/09/16 04:10 12/09/16 09:00 White Blood Count 4.6x10^3/uL (4.0-11.0) 4.1x10^3/uL (4.0-11.0) Red Blood Count 3.39x10^6/uL (4.30-5.70) 3.02x10^6/uL (4.30-5.70) Hemoglobin 9.4g/dL (13.0-17.5) 8.4g/dL (13.0-17.5) Hematocrit 29.1% (39.0-53.0) 26.4% (39.0-53.0) Mean Corpuscular Volume 86fL (79-100) 87fL (79-100) Mean Corpuscular Hemoglobin 28pg (25-35) 28pg (25-35) Mean Corpuscular Hemoglobin Concent 32g/dL (31-37) 32g/dL (31-37) Red Cell Distribution Width 15.4% (11.5-14.5) 15.8% (11.5-14.5) Platelet Count 50x10^3/uL (140-400) 40x10^3/uL (140-400) Neutrophils (%) (Auto) 65% (31-73) 63% (31-73) Lymphocytes (%) (Auto) 14% (24-48) 18% (24-48) Monocytes (%) (Auto) 15% (0-9) 14% (0-9) Eosinophils (%) (Auto) 5% (0-3) 4% (0-3) Basophils (%) (Auto) 2% (0-3) 1% (0-3) Neutrophils # (Auto) 3.0x10^3uL (1.8-7.7) 2.6x10^3uL (1.8-7.7) Lymphocytes # (Auto) 0.6x10^3/uL (1.0-4.8) 0.7x10^3/uL (1.0-4.8) Monocytes # (Auto) 0.7x10^3/uL (0.0-1.1) 0.6x10^3/uL (0.0-1.1) Eosinophils # (Auto) 0.2x10^3/uL (0.0-0.7) 0.2x10^3/uL (0.0-0.7) Basophils # (Auto) 0.1x10^3/uL (0.0-0.2) 0.0x10^3/uL (0.0-0.2) Prothrombin Time 17.1SEC (11.7-14.0) 18.6SEC (11.7-14.0) Prothromb Time International Ratio 1.5 (0.8-1.1) 1.7 (0.8-1.1) Sodium Level 135mmol/L (136-145) 138mmol/L (136-145) Potassium Level 3.9mmol/L (3.5-5.1) 4.0mmol/L (3.5-5.1) Chloride Level 96mmol/L (98-107) 100mmol/L (98-107) Carbon Dioxide Level 25mmol/L (21-32) 21mmol/L (21-32) Anion Gap 14 (6-14) 17 (6-14) Blood Urea Nitrogen 36mg/dL (8-26) 37mg/dL (8-26) Creatinine 2.8mg/dL (0.7-1.3) 2.6mg/dL (0.7-1.3) Estimated GFR (Cockcroft-Gault) 22.6 24.7 Glucose Level 86mg/dL (70-99) 72mg/dL (70-99) Calcium Level 10.2mg/dL (8.5-10.1) 9.2mg/dL (8.5-10.1) Total Bilirubin 6.3mg/dL (0.2-1.0) 5.6mg/dL (0.2-1.0) Direct Bilirubin 4.4mg/dL (0.0-0.2) Aspartate Amino Transf (AST/SGOT) 259U/L (15-37) 190U/L (15-37) Alanine Aminotransferase (ALT/SGPT) 73U/L (16-63) 59U/L (16-63) Alkaline Phosphatase 314U/L (46-116) 267U/L (46-116) Ammonia 20mcmol/L (11-34) Total Protein 8.4g/dL (6.4-8.2) 6.8g/dL (6.4-8.2) Albumin 2.9g/dL (3.4-5.0) 2.4g/dL (3.4-5.0) Ethyl Alcohol Level 72mg/dL (0-10) BUN/Creatinine Ratio 14 (6-20) Gamma Glutamyl Transpeptidase 1137U/L (10-85) Albumin/Globulin Ratio 0.5 (1.0-1.7) Ionized Calcium 1.16mmol/L (1.13-1.32) Assessment/Plan Assessment/Plan IMP JESSICA HYPOVOLEMIA ALCOHOLISM LIVER FAILURE CKD PROB STAGE 3 PLAN IVF'S ENC ABSTINENCE STOP HIS ARB FOR NOW WILL FOLLOW MARCO PARSONS MD Dec 09, 2016 12:04
--- NOTE | 2016-12-09 12:14 | PDOC ---
PROGRESS NOTES Chief Complaint Chief Complaint JESSICA HYPOVOLEMIA ALCOHOLISM LIVER FAILURE CKD PROB STAGE 3 MOd pcm HTN, HLD, COPD (prior respiratory failure), RA, "hepatitis" (teenager), osteoporosis, alcoholism, BCC (excised), cholecystectomy History of Present Illness History of Present Illness no ISSUES cLAIMS NOT much UO (pCP started lasix) On IVF now Crea 2.6 Drinks daily whiskey Sister at bedside PCP dr. Razo NO daily nsaids at home PLAn COnt IVF Ff up renal US (pt claims done today) Await renal rounds Dw sister and pt Renal panel suzanne Vitals Vitals Vital Signs Date Time Temp Pulse Resp B/P Pulse Ox O2 Delivery O2 Flow Rate FiO2 12/09/16 11:06 97.9 82 18 103/49 93 Room Air 97.9 Physical Exam General: Cooperative Heart: Regular rate, Normal S1, No murmurs Lungs: Clear, Other Abdomen: Normal bowel sounds Extremities: No clubbing Skin: No rashes, No breakdown, No significant lesion Labs LABS Laboratory Tests Test 12/08/16 19:25 12/09/16 04:10 12/09/16 09:00 White Blood Count 4.6x10^3/uL (4.0-11.0) 4.1x10^3/uL (4.0-11.0) Red Blood Count 3.39x10^6/uL (4.30-5.70) 3.02x10^6/uL (4.30-5.70) Hemoglobin 9.4g/dL (13.0-17.5) 8.4g/dL (13.0-17.5) Hematocrit 29.1% (39.0-53.0) 26.4% (39.0-53.0) Mean Corpuscular Volume 86fL (79-100) 87fL (79-100) Mean Corpuscular Hemoglobin 28pg (25-35) 28pg (25-35) Mean Corpuscular Hemoglobin Concent 32g/dL (31-37) 32g/dL (31-37) Red Cell Distribution Width 15.4% (11.5-14.5) 15.8% (11.5-14.5) Platelet Count 50x10^3/uL (140-400) 40x10^3/uL (140-400) Neutrophils (%) (Auto) 65% (31-73) 63% (31-73) Lymphocytes (%) (Auto) 14% (24-48) 18% (24-48) Monocytes (%) (Auto) 15% (0-9) 14% (0-9) Eosinophils (%) (Auto) 5% (0-3) 4% (0-3) Basophils (%) (Auto) 2% (0-3) 1% (0-3) Neutrophils # (Auto) 3.0x10^3uL (1.8-7.7) 2.6x10^3uL (1.8-7.7) Lymphocytes # (Auto) 0.6x10^3/uL (1.0-4.8) 0.7x10^3/uL (1.0-4.8) Monocytes # (Auto) 0.7x10^3/uL (0.0-1.1) 0.6x10^3/uL (0.0-1.1) Eosinophils # (Auto) 0.2x10^3/uL (0.0-0.7) 0.2x10^3/uL (0.0-0.7) Basophils # (Auto) 0.1x10^3/uL (0.0-0.2) 0.0x10^3/uL (0.0-0.2) Prothrombin Time 17.1SEC (11.7-14.0) 18.6SEC (11.7-14.0) Prothromb Time International Ratio 1.5 (0.8-1.1) 1.7 (0.8-1.1) Sodium Level 135mmol/L (136-145) 138mmol/L (136-145) Potassium Level 3.9mmol/L (3.5-5.1) 4.0mmol/L (3.5-5.1) Chloride Level 96mmol/L (98-107) 100mmol/L (98-107) Carbon Dioxide Level 25mmol/L (21-32) 21mmol/L (21-32) Anion Gap 14 (6-14) 17 (6-14) Blood Urea Nitrogen 36mg/dL (8-26) 37mg/dL (8-26) Creatinine 2.8mg/dL (0.7-1.3) 2.6mg/dL (0.7-1.3) Estimated GFR (Cockcroft-Gault) 22.6 24.7 Glucose Level 86mg/dL (70-99) 72mg/dL (70-99) Calcium Level 10.2mg/dL (8.5-10.1) 9.2mg/dL (8.5-10.1) Total Bilirubin 6.3mg/dL (0.2-1.0) 5.6mg/dL (0.2-1.0) Direct Bilirubin 4.4mg/dL (0.0-0.2) Aspartate Amino Transf (AST/SGOT) 259U/L (15-37) 190U/L (15-37) Alanine Aminotransferase (ALT/SGPT) 73U/L (16-63) 59U/L (16-63) Alkaline Phosphatase 314U/L (46-116) 267U/L (46-116) Ammonia 20mcmol/L (11-34) Total Protein 8.4g/dL (6.4-8.2) 6.8g/dL (6.4-8.2) Albumin 2.9g/dL (3.4-5.0) 2.4g/dL (3.4-5.0) Ethyl Alcohol Level 72mg/dL (0-10) BUN/Creatinine Ratio 14 (6-20) Gamma Glutamyl Transpeptidase 1137U/L (10-85) Albumin/Globulin Ratio 0.5 (1.0-1.7) Ionized Calcium 1.16mmol/L (1.13-1.32) Review of Systems Review of Systems no soa, cp, abd pain, emesis, diarrhea Assessment and Plan Assessmemt and Plan Problems Medical Problems: (1) Acute renal failure Status: Acute (2) Dehydration Status: Acute (3) Hyperbilirubinemia Status: Acute (4) Liver function abnormality Status: Acute Problems: Comment Review of Relevant I have reviewed the following items claire (where applicable) has been applied. Labs Laboratory Tests Test 12/08/16 19:25 12/09/16 04:10 12/09/16 09:00 White Blood Count 4.6x10^3/uL (4.0-11.0) 4.1x10^3/uL (4.0-11.0) Red Blood Count 3.39x10^6/uL (4.30-5.70) 3.02x10^6/uL (4.30-5.70) Hemoglobin 9.4g/dL (13.0-17.5) 8.4g/dL (13.0-17.5) Hematocrit 29.1% (39.0-53.0) 26.4% (39.0-53.0) Mean Corpuscular Volume 86fL (79-100) 87fL (79-100) Mean Corpuscular Hemoglobin 28pg (25-35) 28pg (25-35) Mean Corpuscular Hemoglobin Concent 32g/dL (31-37) 32g/dL (31-37) Red Cell Distribution Width 15.4% (11.5-14.5) 15.8% (11.5-14.5) Platelet Count 50x10^3/uL (140-400) 40x10^3/uL (140-400) Neutrophils (%) (Auto) 65% (31-73) 63% (31-73) Lymphocytes (%) (Auto) 14% (24-48) 18% (24-48) Monocytes (%) (Auto) 15% (0-9) 14% (0-9) Eosinophils (%) (Auto) 5% (0-3) 4% (0-3) Basophils (%) (Auto) 2% (0-3) 1% (0-3) Neutrophils # (Auto) 3.0x10^3uL (1.8-7.7) 2.6x10^3uL (1.8-7.7) Lymphocytes # (Auto) 0.6x10^3/uL (1.0-4.8) 0.7x10^3/uL (1.0-4.8) Monocytes # (Auto) 0.7x10^3/uL (0.0-1.1) 0.6x10^3/uL (0.0-1.1) Eosinophils # (Auto) 0.2x10^3/uL (0.0-0.7) 0.2x10^3/uL (0.0-0.7) Basophils # (Auto) 0.1x10^3/uL (0.0-0.2) 0.0x10^3/uL (0.0-0.2) Prothrombin Time 17.1SEC (11.7-14.0) 18.6SEC (11.7-14.0) Prothromb Time International Ratio 1.5 (0.8-1.1) 1.7 (0.8-1.1) Sodium Level 135mmol/L (136-145) 138mmol/L (136-145) Potassium Level 3.9mmol/L (3.5-5.1) 4.0mmol/L (3.5-5.1) Chloride Level 96mmol/L (98-107) 100mmol/L (98-107) Carbon Dioxide Level 25mmol/L (21-32) 21mmol/L (21-32) Anion Gap 14 (6-14) 17 (6-14) Blood Urea Nitrogen 36mg/dL (8-26) 37mg/dL (8-26) Creatinine 2.8mg/dL (0.7-1.3) 2.6mg/dL (0.7-1.3) Estimated GFR (Cockcroft-Gault) 22.6 24.7 Glucose Level 86mg/dL (70-99) 72mg/dL (70-99) Calcium Level 10.2mg/dL (8.5-10.1) 9.2mg/dL (8.5-10.1) Total Bilirubin 6.3mg/dL (0.2-1.0) 5.6mg/dL (0.2-1.0) Direct Bilirubin 4.4mg/dL (0.0-0.2) Aspartate Amino Transf (AST/SGOT) 259U/L (15-37) 190U/L (15-37) Alanine Aminotransferase (ALT/SGPT) 73U/L (16-63) 59U/L (16-63) Alkaline Phosphatase 314U/L (46-116) 267U/L (46-116) Ammonia 20mcmol/L (11-34) Total Protein 8.4g/dL (6.4-8.2) 6.8g/dL (6.4-8.2) Albumin 2.9g/dL (3.4-5.0) 2.4g/dL (3.4-5.0) Ethyl Alcohol Level 72mg/dL (0-10) BUN/Creatinine Ratio 14 (6-20) Gamma Glutamyl Transpeptidase 1137U/L (10-85) Albumin/Globulin Ratio 0.5 (1.0-1.7) Ionized Calcium 1.16mmol/L (1.13-1.32) Laboratory Tests Test 12/08/16 19:25 12/09/16 04:10 12/09/16 09:00 White Blood Count 4.6x10^3/uL (4.0-11.0) 4.1x10^3/uL (4.0-11.0) Red Blood Count 3.39x10^6/uL (4.30-5.70) 3.02x10^6/uL (4.30-5.70) Hemoglobin 9.4g/dL (13.0-17.5) 8.4g/dL (13.0-17.5) Hematocrit 29.1% (39.0-53.0) 26.4% (39.0-53.0) Mean Corpuscular Volume 86fL (79-100) 87fL (79-100) Mean Corpuscular Hemoglobin 28pg (25-35) 28pg (25-35) Mean Corpuscular Hemoglobin Concent 32g/dL (31-37) 32g/dL (31-37) Red Cell Distribution Width 15.4% (11.5-14.5) 15.8% (11.5-14.5) Platelet Count 50x10^3/uL (140-400) 40x10^3/uL (140-400) Neutrophils (%) (Auto) 65% (31-73) 63% (31-73) Lymphocytes (%) (Auto) 14% (24-48) 18% (24-48) Monocytes (%) (Auto) 15% (0-9) 14% (0-9) Eosinophils (%) (Auto) 5% (0-3) 4% (0-3) Basophils (%) (Auto) 2% (0-3) 1% (0-3) Neutrophils # (Auto) 3.0x10^3uL (1.8-7.7) 2.6x10^3uL (1.8-7.7) Lymphocytes # (Auto) 0.6x10^3/uL (1.0-4.8) 0.7x10^3/uL (1.0-4.8) Monocytes # (Auto) 0.7x10^3/uL (0.0-1.1) 0.6x10^3/uL (0.0-1.1) Eosinophils # (Auto) 0.2x10^3/uL (0.0-0.7) 0.2x10^3/uL (0.0-0.7) Basophils # (Auto) 0.1x10^3/uL (0.0-0.2) 0.0x10^3/uL (0.0-0.2) Prothrombin Time 17.1SEC (11.7-14.0) 18.6SEC (11.7-14.0) Prothromb Time International Ratio 1.5 (0.8-1.1) 1.7 (0.8-1.1) Sodium Level 135mmol/L (136-145) 138mmol/L (136-145) Potassium Level 3.9mmol/L (3.5-5.1) 4.0mmol/L (3.5-5.1) Chloride Level 96mmol/L (98-107) 100mmol/L (98-107) Carbon Dioxide Level 25mmol/L (21-32) 21mmol/L (21-32) Anion Gap 14 (6-14) 17 (6-14) Blood Urea Nitrogen 36mg/dL (8-26) 37mg/dL (8-26) Creatinine 2.8mg/dL (0.7-1.3) 2.6mg/dL (0.7-1.3) Estimated GFR (Cockcroft-Gault) 22.6 24.7 Glucose Level 86mg/dL (70-99) 72mg/dL (70-99) Calcium Level 10.2mg/dL (8.5-10.1) 9.2mg/dL (8.5-10.1) Total Bilirubin 6.3mg/dL (0.2-1.0) 5.6mg/dL (0.2-1.0) Direct Bilirubin 4.4mg/dL (0.0-0.2) Aspartate Amino Transf (AST/SGOT) 259U/L (15-37) 190U/L (15-37) Alanine Aminotransferase (ALT/SGPT) 73U/L (16-63) 59U/L (16-63) Alkaline Phosphatase 314U/L (46-116) 267U/L (46-116) Ammonia 20mcmol/L (11-34) Total Protein 8.4g/dL (6.4-8.2) 6.8g/dL (6.4-8.2) Albumin 2.9g/dL (3.4-5.0) 2.4g/dL (3.4-5.0) Ethyl Alcohol Level 72mg/dL (0-10) BUN/Creatinine Ratio 14 (6-20) Gamma Glutamyl Transpeptidase 1137U/L (10-85) Albumin/Globulin Ratio 0.5 (1.0-1.7) Ionized Calcium 1.16mmol/L (1.13-1.32) Medications Current Medications Sodium Chloride (Iv Sodium Chloride 0.9% 1000ml Bag) 1,000 ml @ 1,000 mls/hr 1X ONCE IV Last administered on 12/08/16 19:32; Start 12/08/16 at 19:30; Stop 12/08/16 at 20:29; Status DC Ondansetron HCl (Zofran) 4 mg 1X ONCE IV Last administered on 12/08/16 19:34 ; Start 12/08/16 at 19:30; Stop 12/08/16 at 19:32; Status DC Ondansetron HCl 4 mg 4 mg PRN Q8HRS PRN IV NAUSEA/VOMITING; Start 12/08/16 at 21:00; Stop 12/09/16 at 10:30; Status DC Sodium Chloride (Iv Sodium Chloride 0.9% 1000ml Bag) 1,000 ml @ 125 mls/hr Q8H IV Last administered on 12/09/16 09:34; Start 12/08/16 at 21:00; Stop at 20:59 Atorvastatin Calcium (Lipitor) 10 mg HS PO ; Start 12/09/16 at 21:00 Folic Acid (Folic Acid) 1 mg DAILY PO Last administered on 12/09/16 09:36; Start 12/09/16 at 09:00 Hydroxychloroquine Sulfate (Plaquenil) 200 mg BID PO Last administered on 09:35; Start 12/09/16 at 09:00 Hydroxychloroquine Sulfate (Plaquenil) 200 mg BID PO ; Start 12/09/16 at 09:00; Status UNV Losartan Potassium (Cozaar) 50 mg DAILY PO ; Start 12/09/16 at 09:00; Stop 12/09 at 12:05; Status DC Prednisone (Prednisone) 5 mg DAILY PO Last administered on 12/09/16 09:35; Start 12/09/16 at 09:00 Tamsulosin HCl (Flomax) 0.4 mg QHS PO ; Start 12/09/16 at 21:00 Thiamine HCl (Vitamin B-1) 100 mg BID PO Last administered on 12/09/16 09:35; Start 12/09/16 at 09:00 Tramadol HCl (Ultram) 50 mg PRN Q6HRS PRN PO MODERATE PAIN Last administered on 12/09/16 00:43; Start 12/08/16 at 23:45 Zolpidem Tartrate (Ambien) 5 mg PRN QHS PRN PO sleep Last administered on 00:43; Start 12/08/16 at 23:45 Non-Formulary Medication 1 tab WEEKLY PO ; Start 12/15/16 at 09:00; Status UNV Non-Formulary Medication 5 mg HS PO ; Start 12/09/16 at 21:00; Status UNV Pantoprazole Sodium (Protonix) 40 mg DAILYAC PO Last administered on 12/09/16 09:34; Start 12/09/16 at 07:30; Stop 12/09/16 at 10:34; Status DC Ondansetron HCl (Zofran) 4 mg PRN Q6HRS PRN IV NAUSEA/VOMITING; Start 12/09/16 at 10:29 Pantoprazole Sodium (Protonix) 40 mg BIDAC PO ; Start 12/09/16 at 16:30 Active Scripts Active Vitamin B-1 (Thiamine Hcl) 100 Mg Tablet 100 Mg PO BID Folic Acid 1 Mg Tablet 1 Mg PO DAILY Flomax (Tamsulosin Hcl) 0.4 Mg Cap.er.24h 0.4 Mg PO QHS Reported Omeprazole 20 Mg Capsule.dr 1 Cap PO DAILY Melatonin 5 Mg Tablet 5 Mg PO HS Tramadol Hcl 50 Mg Tablet 1 Tab PO PRN Q6HRS Alendronate Sodium 70 Mg Tablet 1 Tab PO WEEKLY Ambien (Zolpidem Tartrate) 5 Mg Tablet 1 Tab PO QHS Atorvastatin Calcium 10 Mg Tablet 1 Tab PO HS Losartan Potassium 50 Mg Tablet 50 Mg PO DAILY Prednisone 5 Mg Tablet 5 Mg PO DAILY Plaquenil (Hydroxychloroquine Sulfate) 200 Mg Tablet 200 Mg PO BID Plaquenil (Hydroxychloroquine Sulfate) 200 Mg Tablet 200 Mg PO BID Cimzia (Certolizumab Pegol) 400 Mg/2 Ml Syringekit 400 Mg SQ Vitals/I & O Vital Sign - Last 24 Hours 12/08/16 12/08/16 12/08/16 12/08/16 19:25 22:47 22:48 23:16 Temp 97.9 97.6 97.6 97.9 97.6 97.6 Pulse 85 72 72 Resp 20 18 18 B/P 122/55 114/48 114/48 Pulse Ox 98 94 94 O2 Delivery Room Air Room Air Room Air Room Air 12/09/16 12/09/16 12/09/16 12/09/16 00:43 01:43 07:00 08:00 Temp 97.9 97.9 Pulse 84 Resp 18 18 18 B/P 97/44 Pulse Ox 94 91 O2 Delivery Room Air Room Air Room Air Room Air 12/09/16 12/09/16 09:00 11:06 Temp 97.9 97.9 Pulse 84 82 Resp 18 B/P 97/44 103/49 Pulse Ox 93 O2 Delivery Room Air Intake and Output 12/08/16 12/08/16 12/09/16 15:00 23:00 07:00 Intake Total 0 ml Balance 0 ml MICA VYAS MD Dec 09, 2016 12:14
--- NOTE | 2016-12-09 14:26 | PDOC ---
Provider Note Provider Note Hem/On consult 1. Thrombocytopenia due to cirrhosis. Monitor cbc See dictation ROSEANN ANDRE MD Dec 09, 2016 14:26
[2016-12-09 14:44] VITALS: BP 105/50
[2016-12-09 15:03] LABS: % SAT IRON 37 % (15-34); IRON,SERUM 108 ug/dL (65-175)
[2016-12-09] MEDS: PANTOPRAZOLE 40 MG TABLET. PO SCH (17:08)
[2016-12-09 19:00] VITALS: BP 113/48
[2016-12-09] MEDS ORDERED: NON FORMULARY ITEM (Melatonin 5 MG) PO SCH (21:00)
[2016-12-09 21:10] LABS: HEP A IGM ABDY Negative (Negative)
[2016-12-09] MEDS: ATORVASTATIN CALCIUM 10 MG TABLET. PO SCH (21:25)
[2016-12-09] MEDS: TAMSULOSIN 0.4 MG CAP.ER.24H. PO SCH (21:25)
[2016-12-09 23:00] VITALS: BP 104/56
[2016-12-10 04:21] LABS: FOLIC ACID 10.8 ng/mL (>3.0)
--- NOTE | 2016-12-10 04:38 | CONS ---
DATE OF CONSULTATION: 12/09/2016 REQUESTING PHYSICIAN: Dr. Kimberlee Monsivais. REASON FOR CONSULTATION: Thrombocytopenia. HISTORY OF PRESENT ILLNESS: The patient is a 66-year-old gentleman who was admitted to [facility] on 12/08/2016 with upper abdominal discomfort and nausea. He was evaluated by his primary care physician and he was noted to have abnormal labs with elevated bilirubin of 6.3, ammonia 20, GGT 1137. Ethyl alcohol 72. He was admitted to [facility] for further workup. He underwent ultrasound of the abdomen on 11/28/2016 that revealed cirrhosis of the liver and mild splenomegaly. The patient does have history of alcoholism. I was asked to see the patient for evaluation of thrombocytopenia. His platelet count on 12/09/2016 was 40,000. Review of the prior records indicates that he has chronic thrombocytopenia. His platelet count on 04/21/2014 was 75,000. It had normalized to 193,000 on 05/03/2014 again dropped to 44,000 on 06/09/2016 and it does remains low since then. In addition, he also has chronic anemia since 04/25/2014. His iron studies in 2016 was suggestive of anemia due to chronic disease. PAST MEDICAL HISTORY: Rheumatoid arthritis, nasal surgery, CABG, hyperlipidemia, COPD, osteoporosis, alcoholism, basal cell carcinoma excised, cholecystectomy. FAMILY HISTORY: Grandfather had stomach cancer. SOCIAL HISTORY: He has quit smoking. He has history of heavy alcohol use. He continues to drink. REVIEW OF SYSTEMS: A 12-point review of system was performed. Pertinent positives are mentioned in the history of present illness. Rest of the system review is negative. PHYSICAL EXAMINATION: GENERAL APPEARANCE: This patient is a 66-year-old gentleman who is in no acute cardiorespiratory distress. VITAL SIGNS: Blood pressure 103/49, temperature 97.9. HEENT: Atraumatic, normocephalic. EYES: He has evidence of icterus. NECK: Supple. CHEST: Bilaterally symmetrical. No crepitations or rhonchi heard. HEART: S1, S2 normal. ABDOMEN: Soft, nontender. CENTRAL NERVOUS SYSTEM: No focal deficits. LYMPHATICS: No lymphadenopathy. SKIN: No rashes. PSYCHOLOGIC: Mood and affect are appropriate. MUSCULOSKELETAL: No joint effusions. LABORATORY DATA: From 12/09/2016, WBC 4.1, hemoglobin 8.4, MCV 87, and platelet count 40,000. IMPRESSION AND PLAN: 1. Thrombocytopenia, chronic, and this is secondary to cirrhosis of the liver and splenomegaly. Platelet count is worse at 40,000 on 12/09/2016. I have advised the patient to quit drink alcohol, which can cause direct bone marrow suppression causing worsening thrombocytopenia. I have advised to monitor for bleeding if he has evidence of significant bleeding, then he would benefit from platelet transfusion. Otherwise, I would recommend continued observation. I discussed in detail with the patient and family and I also discussed with Dr. Panfilo Sheldon. All his questions were answered. 2. Cirrhosis of the liver. Management per Gastroenterology. 3. Splenomegaly due to cirrhosis of liver. Continue supportive care. 4. Alcoholic hepatitis management per Gastroenterology. 5. Renal insufficiency. Appreciate Nephrology consultation. 6. Anemia, normochromic, normocytic, secondary to anemia of chronic disease from cirrhosis of liver and alcoholism. I will check B12 and folic acid levels and iron studies. ROSEANN ANDRE MD DR: YESENIA/deep JOB#: [id number] / [id number] INA
[2016-12-10 07:31] VITALS: BP 106/48
[2016-12-10] MEDS: FOLIC ACID 1 MG TABLET PO SCH (08:16)
[2016-12-10] MEDS: PREDNISONE 5 MG TABLET PO SCH (08:16)
[2016-12-10] MEDS: THIAMINE 100 MG TABLET. PO SCH ×2 (08:16→20:35)
[2016-12-10] MEDS: PANTOPRAZOLE 40 MG TABLET. PO SCH ×2 (08:16→16:30)
[2016-12-10] MEDS: HYDROXYCHLOROQUINE 200 MG TABLET PO SCH ×2 (08:16→20:35)
[2016-12-10 08:50] LABS: CALCIUM 9.1 mg/dL (8.5-10.1); CREATININE 1.6 mg/dL (0.7-1.3); GFR 43.2
[2016-12-10 09:03] LABS: ALBUMIN 2.2 g/dL (3.4-5.0); PHOSPHORUS 2.5 mg/dL (2.6-4.7)
--- NOTE | 2016-12-10 11:04 | PDOC ---
Renal-Progress Notes Subjective Notes Notes NONE History of Present Illness Hx of present illness BETTER Vitals Vitals Vital Signs Date Time Temp Pulse Resp B/P Pulse Ox O2 Delivery O2 Flow Rate FiO2 12/10/16 08:00 Room Air 12/10/16 07:31 97.9 89 19 106/48 88 97.9 Weight Weight [ ] I.O. Intake and Output Intake and Output 12/10/16 07:00 Intake Total 3760 ml Output Total 700 ml Balance 3060 ml Intake Oral 1760 ml IV Total 2000 ml Output Urine Total 700 ml # Voids 3 Labs Labs Laboratory Tests Test 12/10/16 08:15 Sodium Level 135mmol/L (136-145) Potassium Level 4.0mmol/L (3.5-5.1) Chloride Level 103mmol/L (98-107) Carbon Dioxide Level 23mmol/L (21-32) Anion Gap 9 (6-14) Blood Urea Nitrogen 33mg/dL (8-26) Creatinine 1.6mg/dL (0.7-1.3) Estimated GFR (Cockcroft-Gault) 43.2 Glucose Level 105mg/dL (70-99) Calcium Level 9.1mg/dL (8.5-10.1) Phosphorus Level 2.5mg/dL (2.6-4.7) Albumin 2.2g/dL (3.4-5.0) Review of Systems Constitutional: yes: alert, no symptom reported, oriented, weakness Ears/Nose/Throat: Yes: no symptom reported Cardiovascular: Yes no symptom reported Musculoskeletal: Yes: muscle stiffness Psychiatric/Neurological: Yes: weakness Physical Exam General Appearance: no apparent distress Skin: warm Respiratory: bilateral CTA Heart: S1S2, RRR Abdomen: soft, bowel sounds present Genitourinary: bladder flat Neurology: alert Musculoskeletal: low back pain Assessment Assessment IMP JESSICA-IMPROVED WITH CR 2.8 TO 1.6 HYPOVOLEMIA ETOH ABUSE LIVER FAILURE PLAN CONT IVF'S GI EVAL AND TX WILL FOLLOW MARCO PARSONS MD Dec 10, 2016 11:04
[2016-12-10] MEDS: IV NORMAL SALINE 1000ML BAG 1,000 ML IV SCH ×2 (11:15→20:37)
[2016-12-10 11:20] VITALS: BP 90/39
--- NOTE | 2016-12-10 11:30 | PDOC ---
PROGRESS NOTES Chief Complaint Chief Complaint JESSICA HYPOVOLEMIA ALCOHOLISM LIVER FAILURE CKD PROB STAGE 3 MOd pcm HTN, HLD, COPD (prior respiratory failure), RA, "hepatitis" (teenager), osteoporosis, alcoholism, BCC (excised), cholecystectomy Thrombocytopenia History of Present Illness History of Present Illness Feels fine Creatinine comnt to imrpve 1.6 today from 2.8 Heavy counselling on etoh cessation, sister at bedside and doing estefania same Was in AA pgm yrs ago, was sober x 18 yrs and relapsed Sister interested in pgms when I offered literature Platelets 40-50 K, no bleeding VS ok NO edema IVF dec to 75cc/hr Losartan stopped PLAN: IVF 75cc/hr MOnitor platelets SW for AA literature/pamphlet Renal panel suzanne Likely home suzanne or even later today whenever ok with renal Signif time counselling > 30 mins room alone Vitals Vitals Vital Signs Date Time Temp Pulse Resp B/P Pulse Ox O2 Delivery O2 Flow Rate FiO2 12/10/16 11:20 98.6 83 18 90/39 90 Room Air 98.6 Physical Exam General: Cooperative Heart: Regular rate, Normal S1, No murmurs Lungs: Clear, Other Abdomen: Normal bowel sounds Extremities: No clubbing Skin: No rashes, No breakdown, No significant lesion Labs LABS Laboratory Tests Test 12/10/16 08:15 Sodium Level 135mmol/L (136-145) Potassium Level 4.0mmol/L (3.5-5.1) Chloride Level 103mmol/L (98-107) Carbon Dioxide Level 23mmol/L (21-32) Anion Gap 9 (6-14) Blood Urea Nitrogen 33mg/dL (8-26) Creatinine 1.6mg/dL (0.7-1.3) Estimated GFR (Cockcroft-Gault) 43.2 Glucose Level 105mg/dL (70-99) Calcium Level 9.1mg/dL (8.5-10.1) Phosphorus Level 2.5mg/dL (2.6-4.7) Albumin 2.2g/dL (3.4-5.0) Review of Systems Review of Systems no leg edema, no abd pain, no epistaxis, gum bleeds Assessment and Plan Assessmemt and Plan Problems Medical Problems: (1) Acute renal failure Status: Acute (2) Dehydration Status: Acute (3) Hyperbilirubinemia Status: Acute (4) Liver function abnormality Status: Acute Problems: Comment Review of Relevant I have reviewed the following items claire (where applicable) has been applied. Labs Laboratory Tests Test 12/08/16 19:25 12/09/16 04:10 12/09/16 09:00 12/10/16 08:15 White Blood Count 4.6x10^3/uL (4.0-11.0) 4.1x10^3/uL (4.0-11.0) Red Blood Count 3.39x10^6/uL (4.30-5.70) 3.02x10^6/uL (4.30-5.70) Hemoglobin 9.4g/dL (13.0-17.5) 8.4g/dL (13.0-17.5) Hematocrit 29.1% (39.0-53.0) 26.4% (39.0-53.0) Mean Corpuscular Volume 86fL (79-100) 87fL (79-100) Mean Corpuscular Hemoglobin 28pg (25-35) 28pg (25-35) Mean Corpuscular Hemoglobin Concent 32g/dL (31-37) 32g/dL (31-37) Red Cell Distribution Width 15.4% (11.5-14.5) 15.8% (11.5-14.5) Platelet Count 50x10^3/uL (140-400) 40x10^3/uL (140-400) Neutrophils (%) (Auto) 65% (31-73) 63% (31-73) Lymphocytes (%) (Auto) 14% (24-48) 18% (24-48) Monocytes (%) (Auto) 15% (0-9) 14% (0-9) Eosinophils (%) (Auto) 5% (0-3) 4% (0-3) Basophils (%) (Auto) 2% (0-3) 1% (0-3) Neutrophils # (Auto) 3.0x10^3uL (1.8-7.7) 2.6x10^3uL (1.8-7.7) Lymphocytes # (Auto) 0.6x10^3/uL (1.0-4.8) 0.7x10^3/uL (1.0-4.8) Monocytes # (Auto) 0.7x10^3/uL (0.0-1.1) 0.6x10^3/uL (0.0-1.1) Eosinophils # (Auto) 0.2x10^3/uL (0.0-0.7) 0.2x10^3/uL (0.0-0.7) Basophils # (Auto) 0.1x10^3/uL (0.0-0.2) 0.0x10^3/uL (0.0-0.2) Prothrombin Time 17.1SEC (11.7-14.0) 18.6SEC (11.7-14.0) Prothromb Time International Ratio 1.5 (0.8-1.1) 1.7 (0.8-1.1) Sodium Level 135mmol/L (136-145) 138mmol/L (136-145) 135mmol/L (136-145) Potassium Level 3.9mmol/L (3.5-5.1) 4.0mmol/L (3.5-5.1) 4.0mmol/L (3.5-5.1) Chloride Level 96mmol/L (98-107) 100mmol/L (98-107) 103mmol/L (98-107) Carbon Dioxide Level 25mmol/L (21-32) 21mmol/L (21-32) 23mmol/L (21-32) Anion Gap 14 (6-14) 17 (6-14) 9 (6-14) Blood Urea Nitrogen 36mg/dL (8-26) 37mg/dL (8-26) 33mg/dL (8-26) Creatinine 2.8mg/dL (0.7-1.3) 2.6mg/dL (0.7-1.3) 1.6mg/dL (0.7-1.3) Estimated GFR (Cockcroft-Gault) 22.6 24.7 43.2 Glucose Level 86mg/dL (70-99) 72mg/dL (70-99) 105mg/dL (70-99) Calcium Level 10.2mg/dL (8.5-10.1) 9.2mg/dL (8.5-10.1) 9.1mg/dL (8.5-10.1) Total Bilirubin 6.3mg/dL (0.2-1.0) 5.6mg/dL (0.2-1.0) Direct Bilirubin 4.4mg/dL (0.0-0.2) Aspartate Amino Transf (AST/SGOT) 259U/L (15-37) 190U/L (15-37) Alanine Aminotransferase (ALT/SGPT) 73U/L (16-63) 59U/L (16-63) Alkaline Phosphatase 314U/L (46-116) 267U/L (46-116) Ammonia 20mcmol/L (11-34) Total Protein 8.4g/dL (6.4-8.2) 6.8g/dL (6.4-8.2) Albumin 2.9g/dL (3.4-5.0) 2.4g/dL (3.4-5.0) 2.2g/dL (3.4-5.0) Ethyl Alcohol Level 72mg/dL (0-10) Hepatitis A IgM Antibody Negative (Negative) Hepatitis B Surface Antigen Negative (Negative) Hepatitis B Core IgM Antibody Negative (Negative) Hepatitis C Antibody 0.4s/co ratio (0.0-0.9) Reticulocyte Count (auto) 1.0% (0.5-2.5) BUN/Creatinine Ratio 14 (6-20) Gamma Glutamyl Transpeptidase 1137U/L (10-85) Albumin/Globulin Ratio 0.5 (1.0-1.7) Ionized Calcium 1.16mmol/L (1.13-1.32) Iron Level 108ug/dL (65-175) Total Iron Binding Capacity 294ug/dL (250-450) Iron Saturation 37% (15-34) Ferritin 71ng/mL (26-388) Vitamin B12 Level 689pg/mL (211-946) Folic Acid (LAB) 10.8ng/mL (>3.0) Phosphorus Level 2.5mg/dL (2.6-4.7) Laboratory Tests Test 12/10/16 08:15 Sodium Level 135mmol/L (136-145) Potassium Level 4.0mmol/L (3.5-5.1) Chloride Level 103mmol/L (98-107) Carbon Dioxide Level 23mmol/L (21-32) Anion Gap 9 (6-14) Blood Urea Nitrogen 33mg/dL (8-26) Creatinine 1.6mg/dL (0.7-1.3) Estimated GFR (Cockcroft-Gault) 43.2 Glucose Level 105mg/dL (70-99) Calcium Level 9.1mg/dL (8.5-10.1) Phosphorus Level 2.5mg/dL (2.6-4.7) Albumin 2.2g/dL (3.4-5.0) Medications Current Medications Sodium Chloride (Iv Sodium Chloride 0.9% 1000ml Bag) 1,000 ml @ 1,000 mls/hr 1X ONCE IV Last administered on 12/08/16 19:32; Start 12/08/16 at 19:30; Stop 12/08/16 at 20:29; Status DC Ondansetron HCl (Zofran) 4 mg 1X ONCE IV Last administered on 12/08/16 19:34 ; Start 12/08/16 at 19:30; Stop 12/08/16 at 19:32; Status DC Ondansetron HCl 4 mg 4 mg PRN Q8HRS PRN IV NAUSEA/VOMITING; Start 12/08/16 at 21:00; Stop 12/09/16 at 10:30; Status DC Sodium Chloride (Iv Sodium Chloride 0.9% 1000ml Bag) 1,000 ml @ 125 mls/hr Q8H IV Last administered on 12/09/16 13:00; Start 12/08/16 at 21:00; Stop at 20:59; Status DC Atorvastatin Calcium (Lipitor) 10 mg HS PO Last administered on 12/09/16 21:25 ; Start 12/09/16 at 21:00 Folic Acid (Folic Acid) 1 mg DAILY PO Last administered on 12/10/16 08:16; Start 12/09/16 at 09:00 Hydroxychloroquine Sulfate (Plaquenil) 200 mg BID PO Last administered on 08:16; Start 12/09/16 at 09:00 Hydroxychloroquine Sulfate (Plaquenil) 200 mg BID PO ; Start 12/09/16 at 09:00; Status UNV Losartan Potassium (Cozaar) 50 mg DAILY PO ; Start 12/09/16 at 09:00; Stop 12/09 at 12:05; Status DC Prednisone (Prednisone) 5 mg DAILY PO Last administered on 12/10/16 08:16; Start 12/09/16 at 09:00 Tamsulosin HCl (Flomax) 0.4 mg QHS PO Last administered on 12/09/16 21:25; Start 12/09/16 at 21:00 Thiamine HCl (Vitamin B-1) 100 mg BID PO Last administered on 12/10/16 08:16; Start 12/09/16 at 09:00 Tramadol HCl (Ultram) 50 mg PRN Q6HRS PRN PO MODERATE PAIN Last administered on 12/09/16 00:43; Start 12/08/16 at 23:45 Zolpidem Tartrate (Ambien) 5 mg PRN QHS PRN PO sleep Last administered on 21:25; Start 12/08/16 at 23:45 Non-Formulary Medication 1 tab WEEKLY PO ; Start 12/15/16 at 09:00; Status UNV Non-Formulary Medication 5 mg HS PO ; Start 12/09/16 at 21:00; Status UNV Pantoprazole Sodium (Protonix) 40 mg DAILYAC PO Last administered on 12/09/16 09:34; Start 12/09/16 at 07:30; Stop 12/09/16 at 10:34; Status DC Ondansetron HCl (Zofran) 4 mg PRN Q6HRS PRN IV NAUSEA/VOMITING; Start 12/09/16 at 10:29 Pantoprazole Sodium 40 mg 40 mg BIDAC PO Last administered on 12/10/16 08:16; Start 12/09/16 at 16:30 Sodium Chloride (Iv Sodium Chloride 0.9% 1000ml Bag) 1,000 ml @ 75 mls/hr [id number] IV Last administered on 12/10/16 11:15; Start 12/10/16 at 11:15 Active Scripts Active Vitamin B-1 (Thiamine Hcl) 100 Mg Tablet 100 Mg PO BID Folic Acid 1 Mg Tablet 1 Mg PO DAILY Flomax (Tamsulosin Hcl) 0.4 Mg Cap.er.24h 0.4 Mg PO QHS Reported Omeprazole 20 Mg Capsule.dr 1 Cap PO DAILY Melatonin 5 Mg Tablet 5 Mg PO HS Tramadol Hcl 50 Mg Tablet 1 Tab PO PRN Q6HRS Alendronate Sodium 70 Mg Tablet 1 Tab PO WEEKLY Ambien (Zolpidem Tartrate) 5 Mg Tablet 1 Tab PO QHS Atorvastatin Calcium 10 Mg Tablet 1 Tab PO HS Losartan Potassium 50 Mg Tablet 50 Mg PO DAILY Prednisone 5 Mg Tablet 5 Mg PO DAILY Plaquenil (Hydroxychloroquine Sulfate) 200 Mg Tablet 200 Mg PO BID Plaquenil (Hydroxychloroquine Sulfate) 200 Mg Tablet 200 Mg PO BID Cimzia (Certolizumab Pegol) 400 Mg/2 Ml Syringekit 400 Mg SQ Vitals/I & O Vital Sign - Last 24 Hours 12/09/16 12/09/16 12/09/16 12/09/16 14:44 19:00 20:00 23:00 Temp 97.7 98.7 98.0 97.7 98.7 98.0 Pulse 82 100 98 Resp 18 B/P 105/50 113/48 104/56 Pulse Ox 93 94 94 O2 Delivery Room Air Room Air Room Air Room Air 12/10/16 12/10/16 12/10/16 07:31 08:00 11:20 Temp 97.9 98.6 97.9 98.6 Pulse 89 83 Resp 18 B/P 106/48 90/39 Pulse Ox 88 90 O2 Delivery Room Air Room Air Room Air Intake and Output 12/09/16 12/09/16 12/10/16 15:00 23:00 07:00 Intake Total 1240 ml 1720 ml 800 ml Output Total 700 ml Balance 1240 ml 1720 ml 100 ml MICA VYAS MD Dec 10, 2016 11:30
--- NOTE | 2016-12-10 12:52 | PDOC ---
Subjective: Subjective: Per pt - no nausea today, tolerating diet, no abd pain, sometimes "not thinking clearly." Objective: Vital Signs: Vital Signs Date Time Temp Pulse Resp B/P Pulse Ox O2 Delivery O2 Flow Rate FiO2 12/10/16 11:20 98.6 83 18 90/39 90 Room Air 98.6 Labs: Laboratory Tests Test 12/10/16 08:15 Sodium Level 135mmol/L Potassium Level 4.0mmol/L Chloride Level 103mmol/L Carbon Dioxide Level 23mmol/L Anion Gap 9 Blood Urea Nitrogen 33mg/dL Creatinine 1.6mg/dL Estimated GFR (Cockcroft-Gault) 43.2 Glucose Level 105mg/dL Calcium Level 9.1mg/dL Phosphorus Level 2.5mg/dL Albumin 2.2g/dL PE: GEN: NAD, up to chair w/ lunch LUNGS: clear anteriorly HEART: RRR ABD: S/ND/NT NEURO/PSYCH: A & O 3 A/P: Alcoholic hepatitis, cirrhosis -US w/ cirrhosis, splenomegaly -Hep panel neg 08/2016, hemochromatosis genotype pending -drinks 1 pint daily -previous MTX use for RA (now prednisone, Plaquenil) -anemia, thrombocytopenia GERD -on BID PPI -nausea and upper abd pain resolved JESSICA - improved -- Other per Dr. Sheldon. NOMI LAGUERRE Dec 10, 2016 12:52
[2016-12-10 14:56] VITALS: BP 102/43
[2016-12-10 15:52] LABS: BILIRUBIN,URINE SMALL (NEG); GLUCOSE,URINE NEGATIVE (NEG); NITRITE,URINE NEGATIVE (NEG); PH,URINE 5.5; PROTEIN,URINE NEGATIVE (NEG-TRACE)
[2016-12-10 16:13] LABS: BACTERIA,URINE FEW /HPF (0-FEW); RBC,URINE 0 /HPF (0-2); SQUAMOUS EPITHELIAL CELL,UR OCC /LPF
--- NOTE | 2016-12-10 16:21 | PDOC ---
PROGRESS NOTES Subjective Subjective c/c - f/u of Thrombocytopenia Objective Objective Vital Signs Date Time Temp Pulse Resp B/P Pulse Ox O2 Delivery O2 Flow Rate FiO2 12/10/16 14:56 98.5 86 20 102/43 89 Room Air 98.5 Intake and Output 12/10/16 07:00 Intake Total 3760 ml Output Total 700 ml Balance 3060 ml Intake Oral 1760 ml IV Total 2000 ml Output Urine Total 700 ml # Voids 3 Physical Exam Heart: Normal S1, Normal S2 General: Alert, Oriented X3 Lungs: Clear to auscultation Neuro: Normal speech Skin: No rashes Assessment Assessment Problems Medical Problems: (1) Acute renal failure Status: Acute (2) Dehydration Status: Acute (3) Hyperbilirubinemia Status: Acute (4) Liver function abnormality Status: Acute IMPRESSION AND PLAN: 1. Thrombocytopenia, chronic, and this is secondary to cirrhosis of the liver and splenomegaly. Platelet count is worse at 40,000 on 12/09/2016. I have advised the patient to quit drink alcohol, which can cause direct bone marrow suppression causing worsening thrombocytopenia. I have advised to monitor for bleeding if he has evidence of significant bleeding, then he would benefit from platelet transfusion. Otherwise, I would recommend continued observation. Platelets 40. 2. Cirrhosis of the liver. Management per Gastroenterology. 3. Splenomegaly due to cirrhosis of liver. Continue supportive care. 4. Alcoholic hepatitis management per Gastroenterology. 5. Renal insufficiency. Appreciate Nephrology consultation. 6. Anemia, normochromic, normocytic, secondary to anemia of chronic disease from cirrhosis of liver and alcoholism. Normal B12 and folic acid levels and iron studies. Comment Review of Relevant I have reviewed the following items claire (where applicable) has been applied. Labs Laboratory Tests Test 12/08/16 19:25 12/09/16 04:10 12/09/16 09:00 12/10/16 08:15 White Blood Count 4.6x10^3/uL (4.0-11.0) 4.1x10^3/uL (4.0-11.0) Red Blood Count 3.39x10^6/uL (4.30-5.70) 3.02x10^6/uL (4.30-5.70) Hemoglobin 9.4g/dL (13.0-17.5) 8.4g/dL (13.0-17.5) Hematocrit 29.1% (39.0-53.0) 26.4% (39.0-53.0) Mean Corpuscular Volume 86fL (79-100) 87fL (79-100) Mean Corpuscular Hemoglobin 28pg (25-35) 28pg (25-35) Mean Corpuscular Hemoglobin Concent 32g/dL (31-37) 32g/dL (31-37) Red Cell Distribution Width 15.4% (11.5-14.5) 15.8% (11.5-14.5) Platelet Count 50x10^3/uL (140-400) 40x10^3/uL (140-400) Neutrophils (%) (Auto) 65% (31-73) 63% (31-73) Lymphocytes (%) (Auto) 14% (24-48) 18% (24-48) Monocytes (%) (Auto) 15% (0-9) 14% (0-9) Eosinophils (%) (Auto) 5% (0-3) 4% (0-3) Basophils (%) (Auto) 2% (0-3) 1% (0-3) Neutrophils # (Auto) 3.0x10^3uL (1.8-7.7) 2.6x10^3uL (1.8-7.7) Lymphocytes # (Auto) 0.6x10^3/uL (1.0-4.8) 0.7x10^3/uL (1.0-4.8) Monocytes # (Auto) 0.7x10^3/uL (0.0-1.1) 0.6x10^3/uL (0.0-1.1) Eosinophils # (Auto) 0.2x10^3/uL (0.0-0.7) 0.2x10^3/uL (0.0-0.7) Basophils # (Auto) 0.1x10^3/uL (0.0-0.2) 0.0x10^3/uL (0.0-0.2) Prothrombin Time 17.1SEC (11.7-14.0) 18.6SEC (11.7-14.0) Prothromb Time International Ratio 1.5 (0.8-1.1) 1.7 (0.8-1.1) Sodium Level 135mmol/L (136-145) 138mmol/L (136-145) 135mmol/L (136-145) Potassium Level 3.9mmol/L (3.5-5.1) 4.0mmol/L (3.5-5.1) 4.0mmol/L (3.5-5.1) Chloride Level 96mmol/L (98-107) 100mmol/L (98-107) 103mmol/L (98-107) Carbon Dioxide Level 25mmol/L (21-32) 21mmol/L (21-32) 23mmol/L (21-32) Anion Gap 14 (6-14) 17 (6-14) 9 (6-14) Blood Urea Nitrogen 36mg/dL (8-26) 37mg/dL (8-26) 33mg/dL (8-26) Creatinine 2.8mg/dL (0.7-1.3) 2.6mg/dL (0.7-1.3) 1.6mg/dL (0.7-1.3) Estimated GFR (Cockcroft-Gault) 22.6 24.7 43.2 Glucose Level 86mg/dL (70-99) 72mg/dL (70-99) 105mg/dL (70-99) Calcium Level 10.2mg/dL (8.5-10.1) 9.2mg/dL (8.5-10.1) 9.1mg/dL (8.5-10.1) Total Bilirubin 6.3mg/dL (0.2-1.0) 5.6mg/dL (0.2-1.0) Direct Bilirubin 4.4mg/dL (0.0-0.2) Aspartate Amino Transf (AST/SGOT) 259U/L (15-37) 190U/L (15-37) Alanine Aminotransferase (ALT/SGPT) 73U/L (16-63) 59U/L (16-63) Alkaline Phosphatase 314U/L (46-116) 267U/L (46-116) Ammonia 20mcmol/L (11-34) Total Protein 8.4g/dL (6.4-8.2) 6.8g/dL (6.4-8.2) Albumin 2.9g/dL (3.4-5.0) 2.4g/dL (3.4-5.0) 2.2g/dL (3.4-5.0) Ethyl Alcohol Level 72mg/dL (0-10) Hepatitis A IgM Antibody Negative (Negative) Hepatitis B Surface Antigen Negative (Negative) Hepatitis B Core IgM Antibody Negative (Negative) Hepatitis C Antibody 0.4s/co ratio (0.0-0.9) Reticulocyte Count (auto) 1.0% (0.5-2.5) BUN/Creatinine Ratio 14 (6-20) Gamma Glutamyl Transpeptidase 1137U/L (10-85) Albumin/Globulin Ratio 0.5 (1.0-1.7) Ionized Calcium 1.16mmol/L (1.13-1.32) Iron Level 108ug/dL (65-175) Total Iron Binding Capacity 294ug/dL (250-450) Iron Saturation 37% (15-34) Ferritin 71ng/mL (26-388) Vitamin B12 Level 689pg/mL (211-946) Folic Acid (LAB) 10.8ng/mL (>3.0) Phosphorus Level 2.5mg/dL (2.6-4.7) Test 12/10/16 15:30 Urine Collection Type Unknown Urine Color Carly Urine Clarity Clear Urine pH 5.5 Urine Specific [place] 1.015 Urine Protein Negativemg/dL (NEG-TRACE) Urine Glucose (UA) Negativemg/dL (NEG) Urine Ketones (Stick) Negativemg/dL (NEG) Urine Blood Negative (NEG) Urine Nitrite Negative (NEG) Urine Bilirubin Small (NEG) Urine Urobilinogen Dipstick 4.0mg/dL (0.2 mg/dL) Urine Leukocyte Esterase Small (NEG) Urine RBC 0/HPF (0-2) Urine WBC 11-20/HPF (0-4) Urine Squamous Epithelial Cells Occ/LPF Urine Bacteria Few/HPF (0-FEW) Laboratory Tests Test 12/10/16 08:15 12/10/16 15:30 Sodium Level 135mmol/L (136-145) Potassium Level 4.0mmol/L (3.5-5.1) Chloride Level 103mmol/L (98-107) Carbon Dioxide Level 23mmol/L (21-32) Anion Gap 9 (6-14) Blood Urea Nitrogen 33mg/dL (8-26) Creatinine 1.6mg/dL (0.7-1.3) Estimated GFR (Cockcroft-Gault) 43.2 Glucose Level 105mg/dL (70-99) Calcium Level 9.1mg/dL (8.5-10.1) Phosphorus Level 2.5mg/dL (2.6-4.7) Albumin 2.2g/dL (3.4-5.0) Urine Collection Type Unknown Urine Color Carly Urine Clarity Clear Urine pH 5.5 Urine Specific [place] 1.015 Urine Protein Negativemg/dL (NEG-TRACE) Urine Glucose (UA) Negativemg/dL (NEG) Urine Ketones (Stick) Negativemg/dL (NEG) Urine Blood Negative (NEG) Urine Nitrite Negative (NEG) Urine Bilirubin Small (NEG) Urine Urobilinogen Dipstick 4.0mg/dL (0.2 mg/dL) Urine Leukocyte Esterase Small (NEG) Urine RBC 0/HPF (0-2) Urine WBC 11-20/HPF (0-4) Urine Squamous Epithelial Cells Occ/LPF Urine Bacteria Few/HPF (0-FEW) Medications Current Medications Sodium Chloride (Iv Sodium Chloride 0.9% 1000ml Bag) 1,000 ml @ 1,000 mls/hr 1X ONCE IV Last administered on 12/08/16 19:32; Start 12/08/16 at 19:30; Stop 12/08/16 at 20:29; Status DC Ondansetron HCl (Zofran) 4 mg 1X ONCE IV Last administered on 12/08/16 19:34 ; Start 12/08/16 at 19:30; Stop 12/08/16 at 19:32; Status DC Ondansetron HCl 4 mg 4 mg PRN Q8HRS PRN IV NAUSEA/VOMITING; Start 12/08/16 at 21:00; Stop 12/09/16 at 10:30; Status DC Sodium Chloride (Iv Sodium Chloride 0.9% 1000ml Bag) 1,000 ml @ 125 mls/hr Q8H IV Last administered on 12/09/16 13:00; Start 12/08/16 at 21:00; Stop at 20:59; Status DC Atorvastatin Calcium (Lipitor) 10 mg HS PO Last administered on 12/09/16 21:25 ; Start 12/09/16 at 21:00 Folic Acid (Folic Acid) 1 mg DAILY PO Last administered on 12/10/16 08:16; Start 12/09/16 at 09:00 Hydroxychloroquine Sulfate (Plaquenil) 200 mg BID PO Last administered on 08:16; Start 12/09/16 at 09:00 Hydroxychloroquine Sulfate (Plaquenil) 200 mg BID PO ; Start 12/09/16 at 09:00; Status UNV Losartan Potassium (Cozaar) 50 mg DAILY PO ; Start 12/09/16 at 09:00; Stop 12/09 at 12:05; Status DC Prednisone (Prednisone) 5 mg DAILY PO Last administered on 12/10/16 08:16; Start 12/09/16 at 09:00 Tamsulosin HCl (Flomax) 0.4 mg QHS PO Last administered on 12/09/16 21:25; Start 12/09/16 at 21:00 Thiamine HCl (Vitamin B-1) 100 mg BID PO Last administered on 12/10/16 08:16; Start 12/09/16 at 09:00 Tramadol HCl (Ultram) 50 mg PRN Q6HRS PRN PO MODERATE PAIN Last administered on 12/09/16 00:43; Start 12/08/16 at 23:45 Zolpidem Tartrate (Ambien) 5 mg PRN QHS PRN PO sleep Last administered on 21:25; Start 12/08/16 at 23:45 Non-Formulary Medication 1 tab WEEKLY PO ; Start 12/15/16 at 09:00; Status UNV Non-Formulary Medication 5 mg HS PO ; Start 12/09/16 at 21:00; Status UNV Pantoprazole Sodium (Protonix) 40 mg DAILYAC PO Last administered on 12/09/16 09:34; Start 12/09/16 at 07:30; Stop 12/09/16 at 10:34; Status DC Ondansetron HCl (Zofran) 4 mg PRN Q6HRS PRN IV NAUSEA/VOMITING; Start 12/09/16 at 10:29 Pantoprazole Sodium 40 mg 40 mg BIDAC PO Last administered on 12/10/16 08:16; Start 12/09/16 at 16:30 Sodium Chloride (Iv Sodium Chloride 0.9% 1000ml Bag) 1,000 ml @ 75 mls/hr [id number] IV Last administered on 12/10/16 11:15; Start 12/10/16 at 11:15 Active Scripts Active Vitamin B-1 (Thiamine Hcl) 100 Mg Tablet 100 Mg PO BID Folic Acid 1 Mg Tablet 1 Mg PO DAILY Flomax (Tamsulosin Hcl) 0.4 Mg Cap.er.24h 0.4 Mg PO QHS Reported Omeprazole 20 Mg Capsule.dr 1 Cap PO DAILY Melatonin 5 Mg Tablet 5 Mg PO HS Tramadol Hcl 50 Mg Tablet 1 Tab PO PRN Q6HRS Alendronate Sodium 70 Mg Tablet 1 Tab PO WEEKLY Ambien (Zolpidem Tartrate) 5 Mg Tablet 1 Tab PO QHS Atorvastatin Calcium 10 Mg Tablet 1 Tab PO HS Losartan Potassium 50 Mg Tablet 50 Mg PO DAILY Prednisone 5 Mg Tablet 5 Mg PO DAILY Plaquenil (Hydroxychloroquine Sulfate) 200 Mg Tablet 200 Mg PO BID Plaquenil (Hydroxychloroquine Sulfate) 200 Mg Tablet 200 Mg PO BID Cimzia (Certolizumab Pegol) 400 Mg/2 Ml Syringekit 400 Mg SQ Vitals/I & O Vital Sign - Last 24 Hours 12/09/16 12/09/16 12/09/16 12/10/16 19:00 20:00 23:00 07:31 Temp 98.7 98.0 97.9 98.7 98.0 97.9 Pulse 100 98 89 Resp 19 18 19 B/P 113/48 104/56 106/48 Pulse Ox 94 94 88 O2 Delivery Room Air Room Air Room Air Room Air 12/10/16 12/10/16 12/10/16 08:00 11:20 14:56 Temp 98.6 98.5 98.6 98.5 Pulse 83 86 Resp 18 20 B/P 90/39 102/43 Pulse Ox 90 89 O2 Delivery Room Air Room Air Room Air Intake and Output 12/09/16 12/09/16 12/10/16 15:00 23:00 07:00 Intake Total 1240 ml 1720 ml 800 ml Output Total 700 ml Balance 1240 ml 1720 ml 100 ml ROSEANN ANDRE MD Dec 10, 2016 16:21
[2016-12-10 19:00] VITALS: BP 109/47
[2016-12-10] MEDS: TAMSULOSIN 0.4 MG CAP.ER.24H. PO SCH (20:35)
[2016-12-10] MEDS: ATORVASTATIN CALCIUM 10 MG TABLET. PO SCH (20:35)
[2016-12-10] MEDS: ZOLPIDEM 5 MG TABLET. PO PRN (20:35)
[2016-12-10] MEDS: TRAMADOL 50 MG TABLET. PO PRN (20:36)
[2016-12-10 23:00] VITALS: BP 102/49
[2016-12-11 04:52] LABS: CREATININE 1.2 mg/dL (0.7-1.3); GFR 60.2; POTASSIUM 3.9 mmol/L (3.5-5.1)
[2016-12-11 07:00] VITALS: BP 108/49
[2016-12-11] MEDS: HYDROXYCHLOROQUINE 200 MG TABLET PO SCH (08:52)
[2016-12-11] MEDS: PREDNISONE 5 MG TABLET PO SCH (08:52)
[2016-12-11] MEDS: PANTOPRAZOLE 40 MG TABLET. PO SCH (08:52)
[2016-12-11] MEDS: FOLIC ACID 1 MG TABLET PO SCH (08:52)
[2016-12-11] MEDS: THIAMINE 100 MG TABLET. PO SCH (08:52)
[2016-12-11] MEDS: IV NORMAL SALINE 1000ML BAG 1,000 ML IV SCH (08:53)
[2016-12-11 11:00] VITALS: BP 100/53
--- NOTE | 2016-12-11 12:45 | PDOC3 ---
Discharge Summary Visit Information Date of Admission: Dec 08, 2016 Date of Discharge: Dec 11, 2016 Admitting Diagnosis Comment: JESSICA HYPOVOLEMIA ALCOHOLISM LIVER FAILURE CKD PROB STAGE 3 MOd pcm HTN, HLD, COPD (prior respiratory failure), RA, "hepatitis" (teenager), osteoporosis, alcoholism, BCC (excised), cholecystectomy Thrombocytopenia Final Diagnosis Problems Medical Problems: (1) Acute renal failure Status: Acute (2) ARF (acute renal failure) Status: Acute (3) Dehydration Status: Acute (4) Hyperbilirubinemia Status: Acute (5) Liver function abnormality Status: Acute Brief Hospital Course Allergies Allergies Coded Allergies Type Severity Reaction Last Updated Verified No Known Drug Allergies 04/21/14 No Vital Signs Vital Signs Date Time Temp Pulse Resp B/P Pulse Ox O2 Delivery O2 Flow Rate FiO2 12/11/16 11:00 98.4 83 20 100/53 90 Room Air 98.4 Lab Results Laboratory Tests Test 12/10/16 08:15 12/10/16 15:30 12/11/16 03:38 Sodium Level 135mmol/L (136-145) 138mmol/L (136-145) Potassium Level 4.0mmol/L (3.5-5.1) 3.9mmol/L (3.5-5.1) Chloride Level 103mmol/L (98-107) 106mmol/L (98-107) Carbon Dioxide Level 23mmol/L (21-32) 24mmol/L (21-32) Anion Gap 9 (6-14) 8 (6-14) Blood Urea Nitrogen 33mg/dL (8-26) 28mg/dL (8-26) Creatinine 1.6mg/dL (0.7-1.3) 1.2mg/dL (0.7-1.3) Estimated GFR (Cockcroft-Gault) 43.2 60.2 Glucose Level 105mg/dL (70-99) 96mg/dL (70-99) Calcium Level 9.1mg/dL (8.5-10.1) 9.0mg/dL (8.5-10.1) Phosphorus Level 2.5mg/dL (2.6-4.7) Albumin 2.2g/dL (3.4-5.0) Urine Collection Type Unknown Urine Color Carly Urine Clarity Clear Urine pH 5.5 Urine Specific [place] 1.015 Urine Protein Negativemg/dL (NEG-TRACE) Urine Glucose (UA) Negativemg/dL (NEG) Urine Ketones (Stick) Negativemg/dL (NEG) Urine Blood Negative (NEG) Urine Nitrite Negative (NEG) Urine Bilirubin Small (NEG) Urine Urobilinogen Dipstick 4.0mg/dL (0.2 mg/dL) Urine Leukocyte Esterase Small (NEG) Urine RBC 0/HPF (0-2) Urine WBC 11-20/HPF (0-4) Urine Squamous Epithelial Cells Occ/LPF Urine Bacteria Few/HPF (0-FEW) Laboratory Tests Test 12/10/16 15:30 12/11/16 03:38 Urine Collection Type Unknown Urine Color Carly Urine Clarity Clear Urine pH 5.5 Urine Specific [place] 1.015 Urine Protein Negativemg/dL (NEG-TRACE) Urine Glucose (UA) Negativemg/dL (NEG) Urine Ketones (Stick) Negativemg/dL (NEG) Urine Blood Negative (NEG) Urine Nitrite Negative (NEG) Urine Bilirubin Small (NEG) Urine Urobilinogen Dipstick 4.0mg/dL (0.2 mg/dL) Urine Leukocyte Esterase Small (NEG) Urine RBC 0/HPF (0-2) Urine WBC 11-20/HPF (0-4) Urine Squamous Epithelial Cells Occ/LPF Urine Bacteria Few/HPF (0-FEW) Sodium Level 138mmol/L (136-145) Potassium Level 3.9mmol/L (3.5-5.1) Chloride Level 106mmol/L (98-107) Carbon Dioxide Level 24mmol/L (21-32) Anion Gap 8 (6-14) Blood Urea Nitrogen 28mg/dL (8-26) Creatinine 1.2mg/dL (0.7-1.3) Estimated GFR (Cockcroft-Gault) 60.2 Glucose Level 96mg/dL (70-99) Calcium Level 9.0mg/dL (8.5-10.1) Brief Hospital Course Mr. Fine is a 66 old male, daily vodka, admitted for JESSICA. TReated with IVF and back to [facility] 1,2 after IVF,. Co managed with Renal. Heavy counselling against etoh, sister very involved,. ALso had thrombocytopenia, also from etoh, Co managed with heme onc and gI, no bleeding, no intervention but heavy education done. To STOP home losartan. [facility] Rn and pt and sister AA rehab pgms given via SW - has been to one,was sober for 18 yrs Dc 45 mins Pt seen and examined PRoc: none COnsults, GI heme onc, renal Discharge Information Condition at Discharge: Improved, Stable Disposition/Orders: D/C to Home Scheduled Alendronate Sodium (Alendronate Sodium) 1 TAB PO WEEKLY (Reported) Atorvastatin Calcium (Atorvastatin Calcium) 1 TAB PO HS (Reported) Folic Acid (Folic Acid) 1 MG PO DAILY Hydroxychloroquine Sulfate (Plaquenil) 200 MG PO BID (Reported) Hydroxychloroquine Sulfate (Plaquenil) 200 MG PO BID (Reported) Losartan Potassium (Losartan Potassium) 50 MG PO DAILY (Reported) Melatonin (Melatonin) 5 MG PO HS (Reported) Omeprazole (Omeprazole) 1 CAP PO DAILY (Reported) Prednisone (Prednisone) 5 MG PO DAILY (Reported) Tamsulosin Hcl (Flomax) 0.4 MG PO QHS Thiamine Hcl (Vitamin B-1) 100 MG PO BID Tramadol Hcl (Tramadol Hcl) 1 TAB PO PRN Q6HRS (Reported) Zolpidem Tartrate (Ambien) 1 TAB PO QHS (Reported) Miscellaneous Medications Certolizumab Pegol (Cimzia) 400 MG SQ (Reported) MICA VYAS MD Dec 11, 2016 12:45
--- NOTE | 2016-12-11 14:33 | PDOC ---
SUBJECTIVE ROS F/up for JESSICA Eager to go home OBJECTIVE Vital Signs Vital Signs Date Time Temp Pulse Resp B/P Pulse Ox O2 Delivery O2 Flow Rate FiO2 12/11/16 11:00 98.4 83 20 100/53 90 Room Air 98.4 I & 0 Intake and Output 12/11/16 07:00 Intake Total 740 ml Output Total 750 ml Balance -10 ml Intake Oral 740 ml Output Urine Total 750 ml # Bowel Movements 1 PHYSICAL EXAM Physical Exam General Appearance: no apparent distress Skin: warm Respiratory: bilateral CTA Heart: S1S2, RRR Abdomen: soft, bowel sounds present Genitourinary: bladder flat Neurology: alert Musculoskeletal: low back pain Assessment Assessment IMP JESSICA-IMPROVED ?CKD III at creat of 1.2 HYPOVOLEMIA - betterw ith IVF ETOH ABUSE and ? ass o L IVER FAILURE Pt to F/u pwith PCP hereafter for above (pt and instructed) and with us if needed COMMENT/RELEVANT DATA Meds Current Medications Medications (Trade) Dose Ordered Sig/Ze Start Time Stop Time Status Last Admin Dose Admin Atorvastatin Calcium (Lipitor) 10 mg HS 12/09/16 21:00 12/10/16 20:35 10 MG Folic Acid (Folic Acid) 1 mg DAILY 12/09/16 09:00 12/11/16 08:52 1 MG Hydroxychloroquine Sulfate (Plaquenil) 200 mg BID 12/09/16 09:00 UNV Losartan Potassium (Cozaar) 50 mg DAILY 12/09/16 09:00 12/09/16 12:05 DC Non-Formulary Medication 5 mg HS 12/09/16 21:00 UNV Ondansetron HCl (Zofran) 4 mg PRN Q6HRS PRN 12/09/16 10:29 Pantoprazole Sodium (Protonix) 40 mg DAILYAC 12/09/16 07:30 12/09/16 10:34 DC 12/09/16 09:34 40 MG Pantoprazole Sodium 40 mg 40 mg BIDAC 12/09/16 16:30 12/11/16 08:52 40 MG Prednisone (Prednisone) 5 mg DAILY 12/09/16 09:00 12/11/16 08:52 5 MG Sodium Chloride (Iv Sodium Chloride 0.9% 1000ml Bag) 1,000 ml @ 75 mls/hr [id number] 2/17/17 11:15 12/11/16 08:53 75 MLS/HR Tamsulosin HCl (Flomax) 0.4 mg QHS 12/09/16 21:00 12/10/16 20:35 0.4 MG Thiamine HCl (Vitamin B-1) 100 mg BID 12/09/16 09:00 12/11/16 08:52 100 MG Tramadol HCl (Ultram) 50 mg PRN Q6HRS PRN 12/08/16 23:45 12/10/16 20:36 50 MG Zolpidem Tartrate (Ambien) 5 mg PRN QHS PRN 12/08/16 23:45 12/10/16 20:35 5 MG Lab Laboratory Tests Test 12/10/16 15:30 12/11/16 03:38 Urine Collection Type Unknown Urine Color Carly Urine Clarity Clear Urine pH 5.5 Urine Specific [place] 1.015 Urine Protein Negativemg/dL (NEG-TRACE) Urine Glucose (UA) Negativemg/dL (NEG) Urine Ketones (Stick) Negativemg/dL (NEG) Urine Blood Negative (NEG) Urine Nitrite Negative (NEG) Urine Bilirubin Small (NEG) Urine Urobilinogen Dipstick 4.0mg/dL (0.2 mg/dL) Urine Leukocyte Esterase Small (NEG) Urine RBC 0/HPF (0-2) Urine WBC 11-20/HPF (0-4) Urine Squamous Epithelial Cells Occ/LPF Urine Bacteria Few/HPF (0-FEW) Sodium Level 138mmol/L (136-145) Potassium Level 3.9mmol/L (3.5-5.1) Chloride Level 106mmol/L (98-107) Carbon Dioxide Level 24mmol/L (21-32) Anion Gap 8 (6-14) Blood Urea Nitrogen 28mg/dL (8-26) Creatinine 1.2mg/dL (0.7-1.3) Estimated GFR (Cockcroft-Gault) 60.2 Glucose Level 96mg/dL (70-99) Calcium Level 9.0mg/dL (8.5-10.1) MARK SPEARS MD Dec 11, 2016 14:33
--- NOTE | 2016-12-11 14:48 | PDOC ---
PROGRESS NOTES Subjective Subjective c/c - f/u of Thrombocytopenia Objective Objective Vital Signs Date Time Temp Pulse Resp B/P Pulse Ox O2 Delivery O2 Flow Rate FiO2 12/11/16 11:00 98.4 83 20 100/53 90 Room Air 98.4 Intake and Output 12/11/16 07:00 Intake Total 740 ml Output Total 750 ml Balance -10 ml Intake Oral 740 ml Output Urine Total 750 ml # Bowel Movements 1 Physical Exam Heart: Normal S1, Normal S2 General: Alert, Oriented X3 Lungs: Clear to auscultation Psych/Mental Status: Mental status NL Assessment Assessment Problems Medical Problems: (1) Acute renal failure Status: Acute (2) ARF (acute renal failure) Status: Acute (3) Dehydration Status: Acute (4) Hyperbilirubinemia Status: Acute (5) Liver function abnormality Status: Acute IMPRESSION AND PLAN: 1. Thrombocytopenia, chronic, and this is secondary to cirrhosis of the liver and splenomegaly. Platelet count is worse at 40,000 on 12/09/2016. I have advised the patient to quit drink alcohol, which can cause direct bone marrow suppression causing worsening thrombocytopenia. I have advised to monitor for bleeding if he has evidence of significant bleeding, then he would benefit from platelet transfusion. Otherwise, I would recommend continued observation. Platelets 40. No bleeding. 2. Cirrhosis of the liver. Management per Gastroenterology. 3. Splenomegaly due to cirrhosis of liver. Continue supportive care. 4. Alcoholic hepatitis management per Gastroenterology. 5. Renal insufficiency. Appreciate Nephrology consultation. 6. Anemia, normochromic, normocytic, secondary to anemia of chronic disease from cirrhosis of liver and alcoholism. Normal B12 and folic acid levels and iron studies. Agree with discharge plans. Advised to f/u with Dr Razo for monitoring cbc. Comment Review of Relevant I have reviewed the following items claire (where applicable) has been applied. Labs Laboratory Tests Test 12/10/16 08:15 12/10/16 15:30 12/11/16 03:38 Sodium Level 135mmol/L (136-145) 138mmol/L (136-145) Potassium Level 4.0mmol/L (3.5-5.1) 3.9mmol/L (3.5-5.1) Chloride Level 103mmol/L (98-107) 106mmol/L (98-107) Carbon Dioxide Level 23mmol/L (21-32) 24mmol/L (21-32) Anion Gap 9 (6-14) 8 (6-14) Blood Urea Nitrogen 33mg/dL (8-26) 28mg/dL (8-26) Creatinine 1.6mg/dL (0.7-1.3) 1.2mg/dL (0.7-1.3) Estimated GFR (Cockcroft-Gault) 43.2 60.2 Glucose Level 105mg/dL (70-99) 96mg/dL (70-99) Calcium Level 9.1mg/dL (8.5-10.1) 9.0mg/dL (8.5-10.1) Phosphorus Level 2.5mg/dL (2.6-4.7) Albumin 2.2g/dL (3.4-5.0) Urine Collection Type Unknown Urine Color Carly Urine Clarity Clear Urine pH 5.5 Urine Specific [place] 1.015 Urine Protein Negativemg/dL (NEG-TRACE) Urine Glucose (UA) Negativemg/dL (NEG) Urine Ketones (Stick) Negativemg/dL (NEG) Urine Blood Negative (NEG) Urine Nitrite Negative (NEG) Urine Bilirubin Small (NEG) Urine Urobilinogen Dipstick 4.0mg/dL (0.2 mg/dL) Urine Leukocyte Esterase Small (NEG) Urine RBC 0/HPF (0-2) Urine WBC 11-20/HPF (0-4) Urine Squamous Epithelial Cells Occ/LPF Urine Bacteria Few/HPF (0-FEW) Laboratory Tests Test 12/10/16 15:30 12/11/16 03:38 Urine Collection Type Unknown Urine Color Carly Urine Clarity Clear Urine pH 5.5 Urine Specific [place] 1.015 Urine Protein Negativemg/dL (NEG-TRACE) Urine Glucose (UA) Negativemg/dL (NEG) Urine Ketones (Stick) Negativemg/dL (NEG) Urine Blood Negative (NEG) Urine Nitrite Negative (NEG) Urine Bilirubin Small (NEG) Urine Urobilinogen Dipstick 4.0mg/dL (0.2 mg/dL) Urine Leukocyte Esterase Small (NEG) Urine RBC 0/HPF (0-2) Urine WBC 11-20/HPF (0-4) Urine Squamous Epithelial Cells Occ/LPF Urine Bacteria Few/HPF (0-FEW) Sodium Level 138mmol/L (136-145) Potassium Level 3.9mmol/L (3.5-5.1) Chloride Level 106mmol/L (98-107) Carbon Dioxide Level 24mmol/L (21-32) Anion Gap 8 (6-14) Blood Urea Nitrogen 28mg/dL (8-26) Creatinine 1.2mg/dL (0.7-1.3) Estimated GFR (Cockcroft-Gault) 60.2 Glucose Level 96mg/dL (70-99) Calcium Level 9.0mg/dL (8.5-10.1) Medications Current Medications Sodium Chloride (Iv Sodium Chloride 0.9% 1000ml Bag) 1,000 ml @ 1,000 mls/hr 1X ONCE IV Last administered on 12/08/16 19:32; Start 12/08/16 at 19:30; Stop 12/08/16 at 20:29; Status DC Ondansetron HCl (Zofran) 4 mg 1X ONCE IV Last administered on 12/08/16 19:34 ; Start 12/08/16 at 19:30; Stop 12/08/16 at 19:32; Status DC Ondansetron HCl 4 mg 4 mg PRN Q8HRS PRN IV NAUSEA/VOMITING; Start 12/08/16 at 21:00; Stop 12/09/16 at 10:30; Status DC Sodium Chloride (Iv Sodium Chloride 0.9% 1000ml Bag) 1,000 ml @ 125 mls/hr Q8H IV Last administered on 12/09/16 13:00; Start 12/08/16 at 21:00; Stop at 20:59; Status DC Atorvastatin Calcium (Lipitor) 10 mg HS PO Last administered on 12/10/16 20:35 ; Start 12/09/16 at 21:00 Folic Acid (Folic Acid) 1 mg DAILY PO Last administered on 12/11/16 08:52; Start 12/09/16 at 09:00 Hydroxychloroquine Sulfate (Plaquenil) 200 mg BID PO Last administered on 08:52; Start 12/09/16 at 09:00 Hydroxychloroquine Sulfate (Plaquenil) 200 mg BID PO ; Start 12/09/16 at 09:00; Status UNV Losartan Potassium (Cozaar) 50 mg DAILY PO ; Start 12/09/16 at 09:00; Stop 12/09 at 12:05; Status DC Prednisone (Prednisone) 5 mg DAILY PO Last administered on 12/11/16 08:52; Start 12/09/16 at 09:00 Tamsulosin HCl (Flomax) 0.4 mg QHS PO Last administered on 12/10/16 20:35; Start 12/09/16 at 21:00 Thiamine HCl (Vitamin B-1) 100 mg BID PO Last administered on 12/11/16 08:52; Start 12/09/16 at 09:00 Tramadol HCl (Ultram) 50 mg PRN Q6HRS PRN PO MODERATE PAIN Last administered on 12/10/16 20:36; Start 12/08/16 at 23:45 Zolpidem Tartrate (Ambien) 5 mg PRN QHS PRN PO sleep Last administered on 20:35; Start 12/08/16 at 23:45 Non-Formulary Medication 1 tab WEEKLY PO ; Start 12/15/16 at 09:00; Status UNV Non-Formulary Medication 5 mg HS PO ; Start 12/09/16 at 21:00; Status UNV Pantoprazole Sodium (Protonix) 40 mg DAILYAC PO Last administered on 12/09/16 09:34; Start 12/09/16 at 07:30; Stop 12/09/16 at 10:34; Status DC Ondansetron HCl (Zofran) 4 mg PRN Q6HRS PRN IV NAUSEA/VOMITING; Start 12/09/16 at 10:29 Pantoprazole Sodium 40 mg 40 mg BIDAC PO Last administered on 12/11/16 08:52; Start 12/09/16 at 16:30 Sodium Chloride (Iv Sodium Chloride 0.9% 1000ml Bag) 1,000 ml @ 75 mls/hr [id number] IV Last administered on 12/11/16 08:53; Start 12/10/16 at 11:15 Active Scripts Active Vitamin B-1 (Thiamine Hcl) 100 Mg Tablet 100 Mg PO BID Folic Acid 1 Mg Tablet 1 Mg PO DAILY Flomax (Tamsulosin Hcl) 0.4 Mg Cap.er.24h 0.4 Mg PO QHS Reported Omeprazole 20 Mg Capsule.dr 1 Cap PO DAILY Melatonin 5 Mg Tablet 5 Mg PO HS Tramadol Hcl 50 Mg Tablet 1 Tab PO PRN Q6HRS Alendronate Sodium 70 Mg Tablet 1 Tab PO WEEKLY Ambien (Zolpidem Tartrate) 5 Mg Tablet 1 Tab PO QHS Atorvastatin Calcium 10 Mg Tablet 1 Tab PO HS Prednisone 5 Mg Tablet 5 Mg PO DAILY Plaquenil (Hydroxychloroquine Sulfate) 200 Mg Tablet 200 Mg PO BID Plaquenil (Hydroxychloroquine Sulfate) 200 Mg Tablet 200 Mg PO BID Cimzia (Certolizumab Pegol) 400 Mg/2 Ml Syringekit 400 Mg SQ Vitals/I & O Vital Sign - Last 24 Hours 12/10/16 12/10/16 12/10/16 12/10/16 14:56 19:00 20:00 20:36 Temp 98.5 98.4 98.5 98.4 Pulse 86 87 Resp 18 B/P 102/43 109/47 Pulse Ox 89 93 O2 Delivery Room Air Room Air Room Air 12/10/16 12/10/16 12/11/16 12/11/16 21:54 23:00 07:00 11:00 Temp 99.6 98.5 98.4 99.6 98.5 98.4 Pulse 86 87 83 Resp 18 18 20 B/P 102/49 108/49 100/53 Pulse Ox 93 93 90 O2 Delivery Room Air Room Air Room Air Intake and Output 12/10/16 12/10/16 12/11/16 15:00 23:00 07:00 Intake Total 200 ml 420 ml 120 ml Output Total 100 ml 450 ml 200 ml Balance 100 ml -30 ml -80 ml ROSEANN ANDRE MD Dec 11, 2016 14:48
[2016-12-15] MEDS ORDERED: NON FORMULARY ITEM (Alendronate Sodium 1 TAB) PO SCH (09:00)
== END 2016-12-11 15:30 | disposition home or self-care (01) | DRG 682 ==
LOC: ER 17:13 → 5 SOUTH 22:04
PROVIDERS: ADMIT Internal Medicine; ATTEND Internal Medicine
DX: N17.0 Acute kidney failure with tubular necrosis (principal); G93.41 Metabolic encephalopathy; E44.0 Moderate protein-calorie malnutrition; K76.6 Portal hypertension; I12.9 Hypertensive chronic kidney disease with stage 1 through stage 4 chronic kidney disease, or unspecified chronic kidney disease; D63.8 Anemia in other chronic diseases classified elsewhere; D69.6 Thrombocytopenia, unspecified; D73.1 Hypersplenism; E78.5 Hyperlipidemia, unspecified; E83.52 Hypercalcemia; E86.1 Hypovolemia; F10.20 Alcohol dependence, uncomplicated; I25.10 Atherosclerotic heart disease of native coronary artery without angina pectoris; J44.9 Chronic obstructive pulmonary disease, unspecified; K21.9 Gastro-esophageal reflux disease without esophagitis; G47.00 Insomnia, unspecified; E78.00 Pure hypercholesterolemia, unspecified; K72.90 Hepatic failure, unspecified without coma; K74.60 Unspecified cirrhosis of liver; K70.10 Alcoholic hepatitis without ascites; M81.0 Age-related osteoporosis without current pathological fracture; B19.20 Unspecified viral hepatitis C without hepatic coma; K57.90 Diverticulosis of intestine, part unspecified, without perforation or abscess without bleeding; M19.90 Unspecified osteoarthritis, unspecified site; M54.5 Low back pain; Z60.2 Problems related to living alone; M06.9 Rheumatoid arthritis, unspecified; N18.3 Chronic kidney disease, stage 3 (moderate); Z80.0 Family history of malignant neoplasm of digestive organs; Z85.828 Personal history of other malignant neoplasm of skin; Z87.442 Personal history of urinary calculi; Z87.891 Personal history of nicotine dependence; Z95.1 Presence of aortocoronary bypass graft; Z90.49 Acquired absence of other specified parts of digestive tract; Z68.23 Body mass index [BMI] 23.0-23.9, adult
CPT/HCPCS: 36415; 76700; 80048; 80053; 80069; 80074; 80076; 81001; 82140; 82310; 82570; 82607; 82728; 82746; 82977; 83540; 83550; 84300; 85027; 85045; 85610; 87086; 93005; 96361; 96374; G0480; J2405; J7030; J7512; 99285-25

== ENCOUNTER 2016-12-13 12:51 | Inpatient (IN) | payer MEDICARE ==
[~2016-12-13] VITALS: Ht 175.3 cm; Wt 70.4 kg
[2016-12-13] VITALS (15 sets, daily range): BP systolic 105–137; BP diastolic 51–56
--- NOTE | 2016-12-13 13:48 | RAD ---
EXAM: Two view abdomen with one view chest HISTORY: Abdominal pain, gastrointestinal hemorrhage. COMPARISON: 12/31/2014. FINDINGS: A frontal view of the chest and supine/upright views of the abdomen are obtained. Hyperinflation is consistent with chronic obstructive pulmonary disease. There are no confluent infiltrates. There is no pneumothorax or pleural effusion. The heart is not enlarged. Pericardial calcifications and median sternotomy wires are noted. There is no pneumoperitoneum. There are no distended small bowel loops or significant air-fluid levels. There is gas distally. With calcifications in the left upper quadrant corresponding with calcified splenic artery aneurysm on prior CT of 08/29/2016. These measure up to 13 mm. Cholecystectomy clips are noted. Aortoiliac atherosclerotic calcifications are noted elsewhere. There is mild lumbar levocurvature. IMPRESSION: 1. Chronic obstructive pulmonary disease. 2. Pericardial calcifications. Correlate to exclude constrictive pericarditis. 3. No evidence of obstruction. 4. 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
--- NOTE | 2016-12-13 14:26 | ED.ADGEN ---
Past Medical History Past Medical History: Arthritis, CAD, High Cholesterol, Hypertension, Kidney Stone, Lung Disease Additional Past Medical Histor: RA, CIRRHOSIS, HEP C Past Surgical History: Cholecystectomy, Other Additional Past Surgical Histo: nasal surgery and open heart 40 yrs ago Alcohol Use: Heavy Drug Use: None Adult General Chief Complaint Chief Complaint: BLOODY STOOL HPI HPI Patient is a 66 year old [man, history of cirrhosis, hepatitis C, alcohol abuse , who presents emergency department pain abdominal pain, and blood in his stool for the past 2 days. Patient states he's had both bright red blood, and dark stools, has a history of similar symptoms previously with diverticulitis. States he's had no vomiting, no pain with urination, is experiencing lower abdominal pain. No injuries. States he compliant with his medications. His last use of alcohol was yesterday. Review of Systems Review of Systems Constitutional: Denies fever or chills. [] Eyes: Denies change in visual acuity. [] HENT: Denies nasal congestion or sore throat. [] Respiratory: Denies cough or shortness of breath. [] Cardiovascular: Denies chest pain or edema. [] GI: Denies nausea, vomiting, complaining of abdominal pain, bloody stools over the past 2 days. : Denies dysuria. [] Musculoskeletal: Denies back pain or joint pain. [] Integument: Denies rash. [] Neurologic: Denies headache, focal weakness or sensory changes. [] Endocrine: Denies polyuria or polydipsia. [] Lymphatic: Denies swollen glands. [] Psychiatric: Denies depression or anxiety. [] Current Medications Current Medications Current Medications Medications (Trade) Dose Ordered Sig/Ze Start Time Stop Time Status Last Admin Dose Admin Ceftriaxone Sodium (Rocephin 1gm Ivpb For Omni) 50 ml @ 100 mls/hr 1X ONCE 12/13/16 15:45 12/13/16 16:14 DC Info 1 each 1 each PRN DAILY PRN 12/13/16 14:45 12/15/16 14:44 Iohexol (Omnipaque 300 Mg/ml) 75 ml 1X ONCE 12/13/16 14:45 12/13/16 14:46 DC 12/13/16 15:15 75 ML Octreotide Acetate (Sandostatin) 100 mcg 1X ONCE 12/13/16 15:45 12/13/16 15:50 DC Pantoprazole Sodium (Protonix Vial) 80 mg 1X ONCE 12/13/16 15:45 12/13/16 15:50 DC 12/13/16 16:47 80 MG Allergies Allergies Allergies Coded Allergies Type Severity Reaction Last Updated Verified No Known Drug Allergies 04/21/14 No Physical Exam Physical Exam Constitutional: Well developed, well nourished, patient chronically ill in appearance, jaundiced appearance. [] HENT: Normocephalic, atraumatic, bilateral external ears normal, oropharynx moist, no oral exudates, nose normal. [] Eyes: PERRLA, EOMI, conjunctiva normal, no discharge. [] Neck: Normal range of motion, no tenderness, supple, no stridor. [] Cardiovascular:Heart rate regular rhythm, no murmur, S1, S2, rubs or gallops. [] Lungs & Thorax: Bilateral breath sounds clear to auscultation, no wheezing, rhonchi, rales. [] Abdomen: Bowel sounds normal, soft, mild initial patient in the lower quadrants bilaterally, no rigidity or guarding, no masses, no pulsatile masses. [] Skin: Warm, dry, no erythema, no rash, jaundice. [] Back: No tenderness, no CVA tenderness. [] Extremities: No tenderness, no cyanosis, no clubbing, ROM intact, no edema. [] Neurologic: Alert and oriented X 3, normal motor function, normal sensory function, no focal deficits noted. [] Psychologic: Affect normal, judgement normal, mood normal. [] Rectal examination: Patient with single smear of bright red blood, no stool in vault. Current Patient Data Vital Signs Vital Signs Date Time Temp Pulse Resp B/P Pulse Ox O2 Delivery O2 Flow Rate FiO2 12/13/16 13:04 97.7 90 19 102/57 98 Room Air 97.7 Lab Values Laboratory Tests Test 12/13/16 14:27 12/13/16 14:44 12/13/16 15:31 White Blood Count 4.4x10^3/uL (4.0-11.0) Red Blood Count 1.90x10^6/uL (4.30-5.70) L Hemoglobin 5.4g/dL (13.0-17.5) Hematocrit 16.6% (39.0-53.0) Mean Corpuscular Volume 88fL (79-100) Mean Corpuscular Hemoglobin 28pg (25-35) Mean Corpuscular Hemoglobin Concent 32g/dL (31-37) Red Cell Distribution Width 17.1% (11.5-14.5) H Platelet Count 89x10^3/uL (140-400) #L Neutrophils (%) (Auto) 58% (31-73) Lymphocytes (%) (Auto) 19% (24-48) L Monocytes (%) (Auto) 19% (0-9) H Eosinophils (%) (Auto) 2% (0-3) Basophils (%) (Auto) 3% (0-3) Neutrophils # (Auto) 2.5x10^3uL (1.8-7.7) Lymphocytes # (Auto) 0.8x10^3/uL (1.0-4.8) L Monocytes # (Auto) 0.8x10^3/uL (0.0-1.1) Eosinophils # (Auto) 0.1x10^3/uL (0.0-0.7) Basophils # (Auto) 0.1x10^3/uL (0.0-0.2) Prothrombin Time 19.0SEC (11.7-14.0) H Prothrombin Time INR 1.7 (0.8-1.1) H PTT 26SEC (24-38) Sodium Level 140mmol/L (136-145) Potassium Level 4.2mmol/L (3.5-5.1) Chloride Level 107mmol/L (98-107) Carbon Dioxide Level 21mmol/L (21-32) Anion Gap 12 (6-14) Blood Urea Nitrogen 46mg/dL (8-26) H Creatinine 1.5mg/dL (0.7-1.3) H Estimated GFR (Cockcroft-Gault) 46.5 BUN/Creatinine Ratio 31 (6-20) H Glucose Level 101mg/dL (70-99) H Lactic Acid Level 2.5mmol/L (0.4-2.0) H Calcium Level 9.0mg/dL (8.5-10.1) Total Bilirubin 2.6mg/dL (0.2-1.0) H Aspartate Amino Transferase (AST) 88U/L (15-37) H Alanine Aminotransferase (ALT) 35U/L (16-63) Alkaline Phosphatase 176U/L (46-116) H Troponin I Quantitative < 0.017ng/mL (0.000-0.055) Total Protein 6.0g/dL (6.4-8.2) L Albumin 1.9g/dL (3.4-5.0) L Albumin/Globulin Ratio 0.5 (1.0-1.7) L Lipase 233U/L (73-393) Urine Collection Type Unknown Urine Color Yellow Urine Clarity Clear Urine pH 6.5 Urine Specific [place] 1.020 Urine Protein Negativemg/dL (NEG-TRACE) Urine Glucose (UA) Negativemg/dL (NEG) Urine Ketones (Stick) Negativemg/dL (NEG) Urine Blood Negative (NEG) Urine Nitrite Negative (NEG) Urine Bilirubin Negative (NEG) Urine Urobilinogen Dipstick 0.2mg/dL (0.2 mg/dL) Urine Leukocyte Esterase Negative (NEG) Urine RBC Occ/HPF (0-2) Urine WBC Occ/HPF (0-4) Urine Squamous Epithelial Cells Few/LPF Urine Transitional Epithelial Cells Occ/LPF Urine Bacteria Few/HPF (0-FEW) Urine Mucus Slight/LPF Urine Opiates Screen Neg (NEG) Urine Methadone Screen Neg (NEG) Urine Barbiturates Neg (NEG) Urine Phencyclidine Screen Neg (NEG) Urine Amphetamine/Methamphetamine Neg (NEG) Urine Benzodiazepines Screen Neg (NEG) Urine Cocaine Screen Neg (NEG) Urine Cannabinoids Screen Neg (NEG) Urine Ethyl Alcohol Neg (NEG) Stool Occult Blood Positive (NEG) Laboratory Tests 12/13/16 14:27 Laboratory Tests 12/13/16 14:27 EKG EKG EC: Sinus rhythm, heart rate 92 bpm, equivocal axis, QTC of 478, [place] of 188, QRS of 90, contour abnormalities noted in the inferior leads, but no ST elevations or depressions, abnormal ECG, does not meet STEMI criteria. Radiology/Procedures Radiology/Procedures [] [facility] [address] [place], [place] [id number] IMAGING REPORT Signed PATIENT: ROBBIN MARQUEZ ACCOUNT: [id number] : 1950 LOCATION: ER AGE: 66 SEX: M EXAM STATUS: REG ER ORD. PHYSICIAN: BRICE RAMIREZ DO REASON: abd pain/rectal bleeding PROCEDURE: ABD PELV W/ IV CONTRAST ONLY EXAM: CT abdomen/pelvis with contrast. HISTORY: Abdominal pain, bloody stool. TECHNIQUE: Computed tomography of the abdomen and pelvis was performed after the intravenous administration of 75 mL Omnipaque 300. COMPARISON: 08/29/2016. FINDINGS: Lung windows through the visualized portions of the bases reveal there is mild centrilobular emphysema. Pericardial calcifications are again noted. Bone windows reveal no suspicious lesions. There is grade 2 anterolisthesis at L5-S1 from bilateral L5 pars interarticularis defects with associated severe degenerative disc disease. Hepatic surface nodularity is consistent with cirrhotic change. The right lobe is relatively small in the left hypertrophy. The umbilical vein is recanalized. The spleen is not enlarged. Previously noted hepatic steatosis is improved. Rim calcified splenic artery aneurysms of the splenic hilum that measure up to 1.6 cm. The are unchanged. The pancreas and adrenal glands are unremarkable. There is a cyst in the upper pole of the left kidney. The gallbladder is surgically absent. There is no significant ascites. There is no obstruction. There are no pathologically enlarged lymph nodes. IMPRESSION: 1. Sclerotic change with portal hypertension. 2. 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 3. Pericardial calcifications. Correlate for constrictive pericarditis. 4. Grade 2 anterolisthesis at L5-S1 from bilateral L5 pars interarticularis defects. *One or more of the following individualized dose reduction techniques were utilized for this examination: 1. Automated exposure control. 2. Adjustment of the mA and/or kV according to patient size. 3. Use of iterative reconstruction technique. DICTATED and SIGNED BY: BRISEIDA ROTHMAN MD DATE: 12/13/16 1548 CC: BRICE RAMIREZ DO; JITENDRA BECK MD ~ Course & Med Decision Making Course & Med Decision Making Pertinent Labs and Imaging studies reviewed. (See chart for details) Patient with inhaler and jaundice, denies any emesis, experiencing bright red blood from rectum. Has a history of previous GI bleed, history of diverticulitis. CT abdomen and pelvis was obtained to further elucidate the symptoms, did not reveal any evidence of acutely concerning findings. Hemoglobin resulted at 5.4, a drop from his previous hemoglobin at 8.6 several days ago. He was consented and agreed to transfusion of 2 units packed red cells , with 2 units on hold, blood pressures remain low 100s over 60s, heart rate is in the 80s and 90s, he states he is feeling more couple this time. IV fluids also infusing, with patient's history of alcohol abuse, although there is no document history of varices, will institute ceftriaxone, octreotide bolus and drip, and Protonix bolus and drip. Findings as above discussed with Dr. Monsivais internal medicine, who is familiar with the patient previously admission for GI bleeding. Patient was seen by Dr. Sheldon at that time, was contacted by Dr. Monsivais and did evaluate the patient in the ED. He will order a tagged bleeding scan, and proceed with intervention as needed, patient accepted to Dr. Monsivais's service for admission to the ICU as a full admission. Bridge orders per his request. Dragon Disclaimer Dragon Disclaimer This electronic medical record was generated, in whole or in part, using a voice recognition dictation system. Critical Care Time Critical care time was 15 minutes exclusive of procedures. Departure Impression: Primary Impression: GI bleed Additional Impressions: Liver function abnormality Lactic acidosis Disposition: ADMITTED INPATIENT Admitting Physician: Kimberlee Monsivais Condition: IMPROVED Problem Qualifiers Primary Impression: GI bleed GI bleed type/associated pathology: unspecified gastrointestinal hemorrhage type Qualified Code: K92.2 - Gastrointestinal hemorrhage, unspecified BRICE RAMIREZ DO Dec 13, 2016 14:26
[2016-12-13] MEDS ORDERED: IOHEXOL 300 MG/ML 75 ML VIAL IV ONE (14:45)
[2016-12-13] MEDS ORDERED: CONTRAST GIVEN MC PRN (14:45)
[2016-12-13 15:01] LABS: INR 1.7 (0.8-1.1)
[2016-12-13 15:06] LABS: CREATININE 1.5 mg/dL (0.7-1.3); GFR 46.5; POTASSIUM 4.2 mmol/L (3.5-5.1)
[2016-12-13 15:14] LABS: ALBUMIN 1.9 g/dL (3.4-5.0); ALBUMIN/GLOBULIN RATIO 0.5 (1.0-1.7); TOTAL BILIRUBIN 2.6 mg/dL (0.2-1.0)
[2016-12-13 15:16] LABS: BASO # 0.1 x10^3/uL (0.0-0.2); BASO % 3 % (0-3); EOS % 2 % (0-3); LYMPH # 0.8 x10^3/uL (1.0-4.8); LYMPH % 19 % (24-48); MEAN CORPUSCULAR HEMOGLOBIN 28 pg (25-35); MEAN CORPUSCULAR HGB CONC 32 g/dL (31-37); MEAN CORPUSCULAR VOLUME 88 fL (79-100); MONO % 19 % (0-9); NEUT % 58 % (31-73); PLATELET COUNT 89 x10^3/uL (140-400); RED CELL DISTRIBUTION WIDTH 17.1 % (11.5-14.5); WHITE BLOOD COUNT 4.4 x10^3/uL (4.0-11.0)
[2016-12-13 15:23] LABS: HEMOGLOBIN 5.4 g/dL (13.0-17.5)
[2016-12-13 15:24] LABS: HEMATOCRIT 16.6 % (39.0-53.0)
[2016-12-13 15:38] LABS: BARBITURATES NEG (NEG); BENZODIAZEPINES NEG (NEG); CANNABINOIDS NEG (NEG); COCAINE NEG (NEG); ETHANOL, URINE NEG (NEG); METHADONE NEG (NEG); OPIATES NEG (NEG); PHENCYCLIDINE NEG (NEG)
[2016-12-13] MEDS ORDERED: OCTREOTIDE 100 MCG/ML VIAL IV ONE (15:45)
[2016-12-13] MEDS ORDERED: CEFTRIAXONE 1GM IVPB FOR OMNI 50 ML IV ONE (15:45)
[2016-12-13] MEDS ORDERED: PANTOPRAZOLE IV PUSH 40 MG VIAL. IVP ONE (15:45)
[2016-12-13 15:52] LABS: BILIRUBIN,URINE NEGATIVE (NEG); GLUCOSE,URINE NEGATIVE (NEG); NITRITE,URINE NEGATIVE (NEG); PH,URINE 6.5; PROTEIN,URINE NEGATIVE (NEG-TRACE); UROBILINOGEN,URINE 0.2 mg/dL (0.2 mg/dL)
[2016-12-13] MEDS ORDERED: PANTOPRAZOLE SODIUM IV 80 MG in IV NORMAL SALINE 100ML 100 ML IV ONE (16:00)
[2016-12-13] MEDS ORDERED: OCTREOTIDE 500 MCG in IV NORMAL SALINE 100ML 100 ML IV PRN (16:00)
[2016-12-13] MEDS ORDERED: IV NORMAL SALINE 1000ML BAG 1,000 ML IV ONE ×2 (16:00→16:45)
[2016-12-13 16:06] LABS: NEG OBC FOB NEG; POS OBC FOB POS
[2016-12-13 16:10] LABS: BACTERIA,URINE FEW /HPF (0-FEW); RBC,URINE OCC /HPF (0-2); SQUAMOUS EPITHELIAL CELL,UR FEW /LPF; WBC,URINE OCC /HPF (0-4)
--- NOTE | 2016-12-13 16:14 | RAD ---
EXAM: CT abdomen/pelvis with contrast. HISTORY: Abdominal pain, bloody stool. TECHNIQUE: Computed tomography of the abdomen and pelvis was performed after the intravenous administration of 75 mL Omnipaque 300. COMPARISON: 08/29/2016. FINDINGS: Lung windows through the visualized portions of the bases reveal there is mild centrilobular emphysema. Pericardial calcifications are again noted. Bone windows reveal no suspicious lesions. There is grade 2 anterolisthesis at L5-S1 from bilateral L5 pars interarticularis defects with associated severe degenerative disc disease. Hepatic surface nodularity is consistent with cirrhotic change. The right lobe is relatively small in the left hypertrophy. The umbilical vein is recanalized. The spleen is not enlarged. Previously noted hepatic steatosis is improved. Rim calcified splenic artery aneurysms of the splenic hilum that measure up to 1.6 cm. The are unchanged. The pancreas and adrenal glands are unremarkable. There is a cyst in the upper pole of the left kidney. The gallbladder is surgically absent. There is no significant ascites. There is no obstruction. There are no pathologically enlarged lymph nodes. IMPRESSION: 1. Sclerotic change with portal hypertension. 2. 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 3. Pericardial calcifications. Correlate for constrictive pericarditis. 4. Grade 2 anterolisthesis at L5-S1 from bilateral L5 pars interarticularis defects. *One or more of the following individualized dose reduction techniques were utilized for this examination: 1. Automated exposure control. 2. Adjustment of the mA and/or kV according to patient size. 3. Use of iterative reconstruction technique.
--- NOTE | 2016-12-13 16:21 | PDOC1 ---
History and Physical Date of Admission Date of Admission DATE: 12/13/16 TIME: 16:19 Identification/Chief Complaint Chief Complaint blood per rectum Source Source: Chart review, Patient History of Present Illness History of Present Illness Mr Fine is a 66 year old man, EtOH abuse, just DC 2 days ago, admit anemic, abd pain.. Admit with lethargy and worsening abdominal pain, and blood in his stool for the past 2 days. Bright red blood reported by him and his neighbor who brought him to ER today. he reports stool mixed with red blood. Recent admit here, DC 2 days ago. His last use of alcohol was yesterday. Past Medical History Past Medical History history of cirrhosis, hepatitis C, alcohol abuse Cardiovascular: HTN, Hyperlipidemia Pulmonary: COPD Heme/Onc: No pertinent hx Hepatobiliary: Cirrhosis, Other Musculoskeletal: low back pain Rheumatologic: Rheumatoid arthritis Renal/: Chronic renal insuff, Acute renal failure Endocrine: No pertinent hx, Osteoporosis Past Surgical History Past Surgical History: Cholecystectomy, Other Family History Family History: No Significant Social History Smoke: No ALCOHOL: heavy Drugs: None Current Problem List Problem List Problems Medical Problems: (1) GI bleed Status: Acute Problems: Current Medications Current Medications Current Medications Iohexol (Omnipaque 300 Mg/ml) 75 ml 1X ONCE IV Last administered on 12/13/16t 15:15; Start 12/13/16 at 14:45; Stop 12/13/16 at 14:46; Status DC Info 1 each 1 each PRN DAILY PRN MC SEE COMMENTS; Start 12/13/16 at 14:45; Stop 12/15/16 at 14:44 Ceftriaxone Sodium 50 ml @ 100 mls/hr 1X ONCE IV ; Start 12/13/16 at 15:45; Stop 12/13/16 at 16:14; Status DC Pantoprazole Sodium/Sodium Chloride (Protonix Iv/Iv Sodium Chloride 0.9% 100ml) 100 ml @ 10 mls/hr 1X ONCE IV ; Start 12/13/16 at 16:00; Stop 12/14/16 at 01: 59 Pantoprazole Sodium 80 mg 80 mg 1X ONCE IVP ; Start 12/13/16 at 15:45; Stop at 15:50; Status DC Octreotide Acetate/Sodium Chloride (Sandostatin/Iv Sodium Chloride 0.9% 100ml) 101 ml @ 0 mls/hr CONT PRN IV SEE I/O RECORD; Start 12/13/16 at 16:00 Octreotide Acetate 100 mcg 100 mcg 1X ONCE IV ; Start 12/13/16 at 15:45; Stop 12/13/16 at 15:50; Status DC Sodium Chloride (Iv Sodium Chloride 0.9% 1000ml Bag) 1,000 ml @ 1,000 mls/hr 1X ONCE IV ; Start 12/13/16 at 16:00; Stop 12/13/16 at 16:59 Active Scripts Active Vitamin B-1 (Thiamine Hcl) 100 Mg Tablet 100 Mg PO BID Folic Acid 1 Mg Tablet 1 Mg PO DAILY Flomax (Tamsulosin Hcl) 0.4 Mg Cap.er.24h 0.4 Mg PO QHS Reported Omeprazole 20 Mg Capsule.dr 1 Cap PO DAILY Melatonin 5 Mg Tablet 5 Mg PO HS Tramadol Hcl 50 Mg Tablet 1 Tab PO PRN Q6HRS Alendronate Sodium 70 Mg Tablet 1 Tab PO WEEKLY Ambien (Zolpidem Tartrate) 5 Mg Tablet 1 Tab PO QHS Atorvastatin Calcium 10 Mg Tablet 1 Tab PO HS Prednisone 5 Mg Tablet 5 Mg PO DAILY Plaquenil (Hydroxychloroquine Sulfate) 200 Mg Tablet 200 Mg PO BID Plaquenil (Hydroxychloroquine Sulfate) 200 Mg Tablet 200 Mg PO BID Cimzia (Certolizumab Pegol) 400 Mg/2 Ml Syringekit 400 Mg SQ Allergies Allergies: Coded Allergies: No Known Drug Allergies (Unverified , 04/21/14) ROS General: No: Appetite, Chills, Fatigue, Malaise, Night Sweats, Other PSYCHOLOGICAL ROS: No: Anxiety, Behavioral Disorder, Concentration difficultie , Decreased libido, Depression, Disorientation, Hallucinations, Hostility, Irritablity, Memory difficulties, Mood Swings, Obsessive thoughts, Other, Physical abuse, Sexual abuse, Sleep disturbances, Suicidal ideation Eyes: No Blurry vision, No Decreased vision, No Double vision, No Dry eyes, No Excessive tearing, No Eye Pain, No Itchy Eyes, No Loss of vision, No Other, No Photophobia, No Scotomata, No Uses contacts, No Uses glasses Hematological and Lymphatic: No: Bleeding Problems, Blood Clots, Blood Transfusions, Brusing, Night Sweats, Other, Pallor, Swollen Lymph Nodes Respiratory: No: Cough, Hemoptysis, Orthopnea, Other, Pleuritic Pain, SOB with excertion, Shortness of breath, Sputum Changes, Stridor, Tachypnea, Wheezing Cardiovascular: No Chest Pain, No Edema, No Lt Headedness, No Orthopnea, No Other, No Palpitations, No Paroxysmal Noc. Dyspnea Gastrointestinal: Yes Abdominal Pain, Yes Hematochezia, Yes Nausea, No Constipation, No Diarrhea, No Melena, No Other, No Vomiting Genitourinary: No , No , No , No , No , No , No , No Discharge, No Dysuria, No Flank Pain, No Frequency, No Hematuria, No Incontinence, No Other, No Pain, No Retention, No Urgency Musculoskeletal: Yes Muscular Weakness, No Gait Disturbance, No Joint Pain, No Joint Stiffness, No Joint Swelling, No Muscle Pain, No Other, No Pain In:, No Swelling In: Neurological: No Behavorial Changes, No Bowel/Bladder ControlChng, No Confusion , No Dizziness, No Gait Disturbance, No Headaches, No Impaired Coord/balance, No Memory Loss, No Numbness/Tingling, No Other, No Seizures, No Speech Problems , No Tremors, No Visual Changes, No Weakness Skin: No Acne, No Dry Skin, No Eczema, No Hair Changes, No Lumps, No Mole Changes, No Mottling, No Nail Changes, No Other, No Pruritus, No Rash, No Skin Lesion Changes Physical Exam General: Alert, Cooperative, mild distress HEENT: Atraumatic, PERRLA, EOMI, Other (dry oral pharynx, min icterus) Lungs: Clear to auscultation, Normal air movement Heart: S1S2, no murmurs Abdomen: Normal bowel sounds, Soft Rectal Exam: other Extremities: No edema Skin: No rashes Neuro: Normal speech, Normal tone, Cranial nerves 3-12 NL Psych/Mental Status: Mood NL Vitals Vitals Vital Signs Date Time Temp Pulse Resp B/P Pulse Ox O2 Delivery O2 Flow Rate FiO2 12/13/16 13:04 97.7 90 19 102/57 98 Room Air 97.7 Labs Labs Laboratory Tests Test 12/13/16 14:27 12/13/16 14:44 12/13/16 15:31 White Blood Count 4.4x10^3/uL (4.0-11.0) Red Blood Count 1.90x10^6/uL (4.30-5.70) Hemoglobin 5.4g/dL (13.0-17.5) Hematocrit 16.6% (39.0-53.0) Mean Corpuscular Volume 88fL (79-100) Mean Corpuscular Hemoglobin 28pg (25-35) Mean Corpuscular Hemoglobin Concent 32g/dL (31-37) Red Cell Distribution Width 17.1% (11.5-14.5) Platelet Count 89x10^3/uL (140-400) Neutrophils (%) (Auto) 58% (31-73) Lymphocytes (%) (Auto) 19% (24-48) Monocytes (%) (Auto) 19% (0-9) Eosinophils (%) (Auto) 2% (0-3) Basophils (%) (Auto) 3% (0-3) Neutrophils # (Auto) 2.5x10^3uL (1.8-7.7) Lymphocytes # (Auto) 0.8x10^3/uL (1.0-4.8) Monocytes # (Auto) 0.8x10^3/uL (0.0-1.1) Eosinophils # (Auto) 0.1x10^3/uL (0.0-0.7) Basophils # (Auto) 0.1x10^3/uL (0.0-0.2) Prothrombin Time 19.0SEC (11.7-14.0) Prothromb Time International Ratio 1.7 (0.8-1.1) Activated Partial Thromboplast Time 26SEC (24-38) Sodium Level 140mmol/L (136-145) Potassium Level 4.2mmol/L (3.5-5.1) Chloride Level 107mmol/L (98-107) Carbon Dioxide Level 21mmol/L (21-32) Anion Gap 12 (6-14) Blood Urea Nitrogen 46mg/dL (8-26) Creatinine 1.5mg/dL (0.7-1.3) Estimated GFR (Cockcroft-Gault) 46.5 BUN/Creatinine Ratio 31 (6-20) Glucose Level 101mg/dL (70-99) Lactic Acid Level 2.5mmol/L (0.4-2.0) Calcium Level 9.0mg/dL (8.5-10.1) Total Bilirubin 2.6mg/dL (0.2-1.0) Aspartate Amino Transf (AST/SGOT) 88U/L (15-37) Alanine Aminotransferase (ALT/SGPT) 35U/L (16-63) Alkaline Phosphatase 176U/L (46-116) Troponin I Quantitative < 0.017ng/mL (0.000-0.055) Total Protein 6.0g/dL (6.4-8.2) Albumin 1.9g/dL (3.4-5.0) Albumin/Globulin Ratio 0.5 (1.0-1.7) Lipase 233U/L (73-393) Urine Collection Type Unknown Urine Color Yellow Urine Clarity Clear Urine pH 6.5 Urine Specific [place] 1.020 Urine Protein Negativemg/dL (NEG-TRACE) Urine Glucose (UA) Negativemg/dL (NEG) Urine Ketones (Stick) Negativemg/dL (NEG) Urine Blood Negative (NEG) Urine Nitrite Negative (NEG) Urine Bilirubin Negative (NEG) Urine Urobilinogen Dipstick 0.2mg/dL (0.2 mg/dL) Urine Leukocyte Esterase Negative (NEG) Urine RBC Occ/HPF (0-2) Urine WBC Occ/HPF (0-4) Urine Squamous Epithelial Cells Few/LPF Urine Transitional Epithelial Cells Occ/LPF Urine Bacteria Few/HPF (0-FEW) Urine Mucus Slight/LPF Urine Opiates Screen Neg (NEG) Urine Methadone Screen Neg (NEG) Urine Barbiturates Neg (NEG) Urine Phencyclidine Screen Neg (NEG) Urine Amphetamine/Methamphetamine Neg (NEG) Urine Benzodiazepines Screen Neg (NEG) Urine Cocaine Screen Neg (NEG) Urine Cannabinoids Screen Neg (NEG) Urine Ethyl Alcohol Neg (NEG) Stool Occult Blood Positive (NEG) Laboratory Tests Test 12/13/16 14:27 12/13/16 14:44 12/13/16 15:31 White Blood Count 4.4x10^3/uL (4.0-11.0) Red Blood Count 1.90x10^6/uL (4.30-5.70) Hemoglobin 5.4g/dL (13.0-17.5) Hematocrit 16.6% (39.0-53.0) Mean Corpuscular Volume 88fL (79-100) Mean Corpuscular Hemoglobin 28pg (25-35) Mean Corpuscular Hemoglobin Concent 32g/dL (31-37) Red Cell Distribution Width 17.1% (11.5-14.5) Platelet Count 89x10^3/uL (140-400) Neutrophils (%) (Auto) 58% (31-73) Lymphocytes (%) (Auto) 19% (24-48) Monocytes (%) (Auto) 19% (0-9) Eosinophils (%) (Auto) 2% (0-3) Basophils (%) (Auto) 3% (0-3) Neutrophils # (Auto) 2.5x10^3uL (1.8-7.7) Lymphocytes # (Auto) 0.8x10^3/uL (1.0-4.8) Monocytes # (Auto) 0.8x10^3/uL (0.0-1.1) Eosinophils # (Auto) 0.1x10^3/uL (0.0-0.7) Basophils # (Auto) 0.1x10^3/uL (0.0-0.2) Prothrombin Time 19.0SEC (11.7-14.0) Prothromb Time International Ratio 1.7 (0.8-1.1) Activated Partial Thromboplast Time 26SEC (24-38) Sodium Level 140mmol/L (136-145) Potassium Level 4.2mmol/L (3.5-5.1) Chloride Level 107mmol/L (98-107) Carbon Dioxide Level 21mmol/L (21-32) Anion Gap 12 (6-14) Blood Urea Nitrogen 46mg/dL (8-26) Creatinine 1.5mg/dL (0.7-1.3) Estimated GFR (Cockcroft-Gault) 46.5 BUN/Creatinine Ratio 31 (6-20) Glucose Level 101mg/dL (70-99) Lactic Acid Level 2.5mmol/L (0.4-2.0) Calcium Level 9.0mg/dL (8.5-10.1) Total Bilirubin 2.6mg/dL (0.2-1.0) Aspartate Amino Transf (AST/SGOT) 88U/L (15-37) Alanine Aminotransferase (ALT/SGPT) 35U/L (16-63) Alkaline Phosphatase 176U/L (46-116) Troponin I Quantitative < 0.017ng/mL (0.000-0.055) Total Protein 6.0g/dL (6.4-8.2) Albumin 1.9g/dL (3.4-5.0) Albumin/Globulin Ratio 0.5 (1.0-1.7) Lipase 233U/L (73-393) Urine Collection Type Unknown Urine Color Yellow Urine Clarity Clear Urine pH 6.5 Urine Specific [place] 1.020 Urine Protein Negativemg/dL (NEG-TRACE) Urine Glucose (UA) Negativemg/dL (NEG) Urine Ketones (Stick) Negativemg/dL (NEG) Urine Blood Negative (NEG) Urine Nitrite Negative (NEG) Urine Bilirubin Negative (NEG) Urine Urobilinogen Dipstick 0.2mg/dL (0.2 mg/dL) Urine Leukocyte Esterase Negative (NEG) Urine RBC Occ/HPF (0-2) Urine WBC Occ/HPF (0-4) Urine Squamous Epithelial Cells Few/LPF Urine Transitional Epithelial Cells Occ/LPF Urine Bacteria Few/HPF (0-FEW) Urine Mucus Slight/LPF Urine Opiates Screen Neg (NEG) Urine Methadone Screen Neg (NEG) Urine Barbiturates Neg (NEG) Urine Phencyclidine Screen Neg (NEG) Urine Amphetamine/Methamphetamine Neg (NEG) Urine Benzodiazepines Screen Neg (NEG) Urine Cocaine Screen Neg (NEG) Urine Cannabinoids Screen Neg (NEG) Urine Ethyl Alcohol Neg (NEG) Stool Occult Blood Positive (NEG) VTE Prophylaxis Ordered VTE Prophylaxis Devices: Yes VTE Pharmacological Prophylaxi: Contraindicated Assessment/Plan Assessment/Plan Blood loss per rectum Bright red blood reported GI bleed, acute anemia Consult GI, gen surg, CT scan ordered, will consider tagged red scan per GI INR 1.7, chronic EtoH abuse, liver dysfunction, cirrhosis severe malnutrition, again poor synthetic function, dehydration, vasomotor nephropathy on CKD2 weakness and debility, acq Seen in ER, discussed with ER and GI admit to ICU, 38 min GHADA PHILLIPS MD Dec 13, 2016 16:21
[2016-12-13] MEDS ORDERED: IV NORMAL SALINE 1000ML BAG 1,000 ML IV PRN (16:45)
[2016-12-13] MEDS ORDERED: PHYTONADIONE 10 MG in IV NORMAL SALINE 50ML 50 ML IV ONE (16:45)
[2016-12-13] MEDS ORDERED: LORAZEPAM 2 MG/ML VIAL IV PRN ×2 (16:45)
[2016-12-13] MEDS ORDERED: HYDROCORTISONE SOD SUCC/PF 100 MG/2 ML VIAL. IV ONE (17:00)
[2016-12-13] MEDS ORDERED: PREDNISONE 20 MG TABLET PO ONE (17:00)
[2016-12-13] MEDS ORDERED: TRAMADOL 50 MG TABLET. PO SCH (17:00)
--- NOTE | 2016-12-13 17:03 | PDOC2 ---
CONSULT Date of Consult Date of Consult DATE: 12/13/16 TIME: 16:41 Reason for Consult Reason for Consult: Hematochezia Referring Physician Referring Physician: Dr. Monsivais Source Source: Chart review, Patient History of Present Illness Reason for Visit: 66 y/o male known to me. Developed bloody stools last evening, numbering at least 6-7; no pain with this other than cramping before stool. Last stool ~ 1100 today. Multiple colonoscopies in past by Dr. Villatoro, the last of which was 2015. Polyps, diverticulosis and hemorrhoids noted. Significant drop in hemoglobin from discharge value last week. Denies N, V, melena or hematemesis. H/o high-grade reflux esophagitis in past with stricture (dilated) and food impaction in the past; taking PPI regularly. No PUD or pancreatic history. H/ o probable alcoholic cirrhosis; no h/o of varices on EGD done with last colonoscopy. Serologic w/u for other causes of CLD negative here. Has used MTX in the past. S/p neena. Formerly smoked. Has continued to drink despite recommendations to stop. Takes occasional Aleve, but assures me not daily. GI family history positive for PUD in sister; grandfather and an uncle have had some sort of "stomach cancer" with details not known. Vague sort of "hepatitis " as teenager complicated by pericardial effusion, true nature unclear. Past Medical History Cardiovascular: HTN, Hyperlipidemia Pulmonary: COPD, Other (prior respiratory failure) Musculoskeletal: low back pain Rheumatologic: Rheumatoid arthritis Renal/: Chronic renal insuff, Acute renal failure Endocrine: Osteoporosis Past Surgical History Past Surgical History: Cholecystectomy, Other (pericardial window, STSG, excise BCCA) Family History Family History: No Significant Social History Quit ALCOHOL: heavy Drugs: None Current Problem List Problem List Problems Medical Problems: (1) GI bleed Status: Acute Current Medications Current Medications Current Medications Iohexol (Omnipaque 300 Mg/ml) 75 ml 1X ONCE IV Last administered on 12/13/16t 15:15; Start 12/13/16 at 14:45; Stop 12/13/16 at 14:46; Status DC Info 1 each 1 each PRN DAILY PRN MC SEE COMMENTS; Start 12/13/16 at 14:45; Stop 12/15/16 at 14:44 Ceftriaxone Sodium 50 ml @ 100 mls/hr 1X ONCE IV ; Start 12/13/16 at 15:45; Stop 12/13/16 at 16:14; Status DC Pantoprazole Sodium/Sodium Chloride (Protonix Iv/Iv Sodium Chloride 0.9% 100ml) 100 ml @ 10 mls/hr 1X ONCE IV ; Start 12/13/16 at 16:00; Stop 12/14/16 at 01: 59 Pantoprazole Sodium 80 mg 80 mg 1X ONCE IVP ; Start 12/13/16 at 15:45; Stop at 15:50; Status DC Octreotide Acetate/Sodium Chloride (Sandostatin/Iv Sodium Chloride 0.9% 100ml) 101 ml @ 0 mls/hr CONT PRN IV SEE I/O RECORD; Start 12/13/16 at 16:00 Octreotide Acetate 100 mcg 100 mcg 1X ONCE IV ; Start 12/13/16 at 15:45; Stop 12/13/16 at 15:50; Status DC Sodium Chloride 1,000 ml @ 1,000 mls/hr 1X ONCE IV ; Start 12/13/16 at 16:00; Stop 12/13/16 at 16:59 Phytonadione 10 mg/Sodium Chloride 51 ml @ 102 mls/hr 1X ONCE IV ; Start 12/13 at 16:45; Stop 12/13/16 at 17:14 Sodium Chloride 1,000 ml @ 1,000 mls/hr 1X ONCE IV ; Start 12/13/16 at 16:45; Stop 12/13/16 at 17:44 Sodium Chloride 1,000 ml @ 150 mls/hr CONT IV ; Start 12/13/16 at 16:45; Status UNV Multivitamins/ Minerals/Thiamine HCl/Folic Acid/ Sodium Chloride (Infuvite Adult / Iv Sodium Chloride 0.9% 1000ml Bag) 1,011.2 ml @ 100 mls/ hr DAILY IV ; Start 12/14/16 at 09:00; Stop 12/19/16 at 08:59; Status UNV Multivitamins/ Calcium (Thera M Plus) 1 tab DAILY PO ; Start 12/14/16 at 09:00; Status UNV Lorazepam (Ativan) 2 mg PRN Q1HR PRN IV For CIWA 8-14; Start 12/13/16 at 16:45 ; Status UNV Lorazepam (Ativan) 4 mg PRN Q1HR PRN IV For CIWA 15 or greater; Start 12/13/16 at 16:45; Status UNV Active Scripts Active Vitamin B-1 (Thiamine Hcl) 100 Mg Tablet 100 Mg PO BID Folic Acid 1 Mg Tablet 1 Mg PO DAILY Flomax (Tamsulosin Hcl) 0.4 Mg Cap.er.24h 0.4 Mg PO QHS Reported Omeprazole 20 Mg Capsule.dr 1 Cap PO DAILY Melatonin 5 Mg Tablet 5 Mg PO HS Tramadol Hcl 50 Mg Tablet 1 Tab PO PRN Q6HRS Alendronate Sodium 70 Mg Tablet 1 Tab PO WEEKLY Ambien (Zolpidem Tartrate) 5 Mg Tablet 1 Tab PO QHS Atorvastatin Calcium 10 Mg Tablet 1 Tab PO HS Prednisone 5 Mg Tablet 5 Mg PO DAILY Plaquenil (Hydroxychloroquine Sulfate) 200 Mg Tablet 200 Mg PO BID Plaquenil (Hydroxychloroquine Sulfate) 200 Mg Tablet 200 Mg PO BID Cimzia (Certolizumab Pegol) 400 Mg/2 Ml Syringekit 400 Mg SQ Allergies Allergies: Coded Allergies: No Known Drug Allergies (Unverified , 04/21/14) ROS Review of System 10-point review otherwise negative. Physical Exam General: Alert, Oriented X3, Cooperative, No acute distress Lungs: Clear to auscultation Heart: Regular rate, Normal S1, Normal S2, No murmurs Abdomen: Normal bowel sounds, Soft, No tenderness, No hepatosplenomegaly, No masses Extremities: No cyanosis, No edema Skin: Other (icteric) Neuro: Normal speech, Strength at 5/5 X4 ext, Normal tone, Sensation intact, Cranial nerves 3-12 NL, Reflexes 2+ Psych/Mental Status: Mental status NL, Mood NL MUSCULOSKELETAL: No swelling Vitals VITALS Vital Signs Date Time Temp Pulse Resp B/P Pulse Ox O2 Delivery O2 Flow Rate FiO2 12/13/16 13:04 97.7 90 19 102/57 98 Room Air 97.7 Labs Labs Laboratory Tests Test 12/13/16 14:27 12/13/16 14:44 12/13/16 15:31 White Blood Count 4.4x10^3/uL (4.0-11.0) Red Blood Count 1.90x10^6/uL (4.30-5.70) Hemoglobin 5.4g/dL (13.0-17.5) Hematocrit 16.6% (39.0-53.0) Mean Corpuscular Volume 88fL (79-100) Mean Corpuscular Hemoglobin 28pg (25-35) Mean Corpuscular Hemoglobin Concent 32g/dL (31-37) Red Cell Distribution Width 17.1% (11.5-14.5) Platelet Count 89x10^3/uL (140-400) Neutrophils (%) (Auto) 58% (31-73) Lymphocytes (%) (Auto) 19% (24-48) Monocytes (%) (Auto) 19% (0-9) Eosinophils (%) (Auto) 2% (0-3) Basophils (%) (Auto) 3% (0-3) Neutrophils # (Auto) 2.5x10^3uL (1.8-7.7) Lymphocytes # (Auto) 0.8x10^3/uL (1.0-4.8) Monocytes # (Auto) 0.8x10^3/uL (0.0-1.1) Eosinophils # (Auto) 0.1x10^3/uL (0.0-0.7) Basophils # (Auto) 0.1x10^3/uL (0.0-0.2) Prothrombin Time 19.0SEC (11.7-14.0) Prothromb Time International Ratio 1.7 (0.8-1.1) Activated Partial Thromboplast Time 26SEC (24-38) Sodium Level 140mmol/L (136-145) Potassium Level 4.2mmol/L (3.5-5.1) Chloride Level 107mmol/L (98-107) Carbon Dioxide Level 21mmol/L (21-32) Anion Gap 12 (6-14) Blood Urea Nitrogen 46mg/dL (8-26) Creatinine 1.5mg/dL (0.7-1.3) Estimated GFR (Cockcroft-Gault) 46.5 BUN/Creatinine Ratio 31 (6-20) Glucose Level 101mg/dL (70-99) Lactic Acid Level 2.5mmol/L (0.4-2.0) Calcium Level 9.0mg/dL (8.5-10.1) Total Bilirubin 2.6mg/dL (0.2-1.0) Aspartate Amino Transf (AST/SGOT) 88U/L (15-37) Alanine Aminotransferase (ALT/SGPT) 35U/L (16-63) Alkaline Phosphatase 176U/L (46-116) Troponin I Quantitative < 0.017ng/mL (0.000-0.055) Total Protein 6.0g/dL (6.4-8.2) Albumin 1.9g/dL (3.4-5.0) Albumin/Globulin Ratio 0.5 (1.0-1.7) Lipase 233U/L (73-393) Urine Collection Type Unknown Urine Color Yellow Urine Clarity Clear Urine pH 6.5 Urine Specific Jewett 1.020 Urine Protein Negativemg/dL (NEG-TRACE) Urine Glucose (UA) Negativemg/dL (NEG) Urine Ketones (Stick) Negativemg/dL (NEG) Urine Blood Negative (NEG) Urine Nitrite Negative (NEG) Urine Bilirubin Negative (NEG) Urine Urobilinogen Dipstick 0.2mg/dL (0.2 mg/dL) Urine Leukocyte Esterase Negative (NEG) Urine RBC Occ/HPF (0-2) Urine WBC Occ/HPF (0-4) Urine Squamous Epithelial Cells Few/LPF Urine Transitional Epithelial Cells Occ/LPF Urine Bacteria Few/HPF (0-FEW) Urine Mucus Slight/LPF Urine Opiates Screen Neg (NEG) Urine Methadone Screen Neg (NEG) Urine Barbiturates Neg (NEG) Urine Phencyclidine Screen Neg (NEG) Urine Amphetamine/Methamphetamine Neg (NEG) Urine Benzodiazepines Screen Neg (NEG) Urine Cocaine Screen Neg (NEG) Urine Cannabinoids Screen Neg (NEG) Urine Ethyl Alcohol Neg (NEG) Stool Occult Blood Positive (NEG) Laboratory Tests Test 12/13/16 14:27 12/13/16 14:44 12/13/16 15:31 White Blood Count 4.4x10^3/uL (4.0-11.0) Red Blood Count 1.90x10^6/uL (4.30-5.70) Hemoglobin 5.4g/dL (13.0-17.5) Hematocrit 16.6% (39.0-53.0) Mean Corpuscular Volume 88fL (79-100) Mean Corpuscular Hemoglobin 28pg (25-35) Mean Corpuscular Hemoglobin Concent 32g/dL (31-37) Red Cell Distribution Width 17.1% (11.5-14.5) Platelet Count 89x10^3/uL (140-400) Neutrophils (%) (Auto) 58% (31-73) Lymphocytes (%) (Auto) 19% (24-48) Monocytes (%) (Auto) 19% (0-9) Eosinophils (%) (Auto) 2% (0-3) Basophils (%) (Auto) 3% (0-3) Neutrophils # (Auto) 2.5x10^3uL (1.8-7.7) Lymphocytes # (Auto) 0.8x10^3/uL (1.0-4.8) Monocytes # (Auto) 0.8x10^3/uL (0.0-1.1) Eosinophils # (Auto) 0.1x10^3/uL (0.0-0.7) Basophils # (Auto) 0.1x10^3/uL (0.0-0.2) Prothrombin Time 19.0SEC (11.7-14.0) Prothromb Time International Ratio 1.7 (0.8-1.1) Activated Partial Thromboplast Time 26SEC (24-38) Sodium Level 140mmol/L (136-145) Potassium Level 4.2mmol/L (3.5-5.1) Chloride Level 107mmol/L (98-107) Carbon Dioxide Level 21mmol/L (21-32) Anion Gap 12 (6-14) Blood Urea Nitrogen 46mg/dL (8-26) Creatinine 1.5mg/dL (0.7-1.3) Estimated GFR (Cockcroft-Gault) 46.5 BUN/Creatinine Ratio 31 (6-20) Glucose Level 101mg/dL (70-99) Lactic Acid Level 2.5mmol/L (0.4-2.0) Calcium Level 9.0mg/dL (8.5-10.1) Total Bilirubin 2.6mg/dL (0.2-1.0) Aspartate Amino Transf (AST/SGOT) 88U/L (15-37) Alanine Aminotransferase (ALT/SGPT) 35U/L (16-63) Alkaline Phosphatase 176U/L (46-116) Troponin I Quantitative < 0.017ng/mL (0.000-0.055) Total Protein 6.0g/dL (6.4-8.2) Albumin 1.9g/dL (3.4-5.0) Albumin/Globulin Ratio 0.5 (1.0-1.7) Lipase 233U/L (73-393) Urine Collection Type Unknown Urine Color Yellow Urine Clarity Clear Urine pH 6.5 Urine Specific Jewett 1.020 Urine Protein Negativemg/dL (NEG-TRACE) Urine Glucose (UA) Negativemg/dL (NEG) Urine Ketones (Stick) Negativemg/dL (NEG) Urine Blood Negative (NEG) Urine Nitrite Negative (NEG) Urine Bilirubin Negative (NEG) Urine Urobilinogen Dipstick 0.2mg/dL (0.2 mg/dL) Urine Leukocyte Esterase Negative (NEG) Urine RBC Occ/HPF (0-2) Urine WBC Occ/HPF (0-4) Urine Squamous Epithelial Cells Few/LPF Urine Transitional Epithelial Cells Occ/LPF Urine Bacteria Few/HPF (0-FEW) Urine Mucus Slight/LPF Urine Opiates Screen Neg (NEG) Urine Methadone Screen Neg (NEG) Urine Barbiturates Neg (NEG) Urine Phencyclidine Screen Neg (NEG) Urine Amphetamine/Methamphetamine Neg (NEG) Urine Benzodiazepines Screen Neg (NEG) Urine Cocaine Screen Neg (NEG) Urine Cannabinoids Screen Neg (NEG) Urine Ethyl Alcohol Neg (NEG) Stool Occult Blood Positive (NEG) Images Images ON CT: IMPRESSION: 1. Sclerotic change with portal hypertension. 2. 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 3. Pericardial calcifications. Correlate for constrictive pericarditis. 4. Grade 2 anterolisthesis at L5-S1 from bilateral L5 pars interarticularis defects. Assessment/Plan Assessment/Plan IMP: 1. Hematochezia, historically consistent with diverticular bleed. Given no stools since this morning, has hopefully stopped. 2. Probable alcoholic cirrhosis, continuing to drink. Likely still has some element of alcoholic hepatitis active. 3. High-grade GERD, on PPI. 4. S/p neena 5. H/o colon polyps, not yet due for surveillance. 6. Diverticulosis 7. FH of PUD and "stomach cancer", type unclear. 8. Chronic steroid use; while not "suppressive" at 5mg/day prednisone, there may be an element of relative adrenal suppression. REC: 1. IVF's, blood as needed. 2. Monitor hemoglobin; attempt to keep ~8 or so. 3. Beware withdrawal; would give thiamine, etc. 4. Will get bleeding scan, but doesn't historically seem will be positive. Negative scan would be encouraging, though. 5. If recurrent/continued hemodynamically significant bleeding and transfused > or equal to 4 U PRBC's, would consider IR to embolize. 6. At worst case, consider surgical intervention if IR not successful. 7. If seems hemodynamically labile, consider stress level steroids. --other pending. Thank you for allowing me to assist in the care of this patient. Please call if questions. MATTHEW CHIN MD Dec 13, 2016 17:03
[2016-12-13] MEDS ORDERED: TRAMADOL 50 MG TABLET. PO PRN (17:21)
[2016-12-13] MEDS: MVI, ADULT NO.4 WITH VIT K 10 ML, THIAMINE 100 MG, FOLIC ACID 1 MG in IV NORMAL SALINE ... IV SCH ×4 (19:07)
[2016-12-13] MEDS ORDERED: HYDROXYCHLOROQUINE 200 MG TABLET PO SCH (21:00)
--- NOTE | 2016-12-13 22:26 | RAD ---
PROCEDURE Negative medicine GI bleed scan HISTORY Prior red stool TECHNIQUE 25 millicuries of technetium 99 M red blood cells were administered and spot views were obtained on a gamma camera FINDINGS There is no appearance or propagation of activity to suggest a GI bleed. IMPRESSION Negative examination. Electronically signed by: Magdiel Kaplan MD (Dec 13, 2016 22:25:22)
[2016-12-13] MEDS: TAMSULOSIN 0.4 MG CAP.ER.24H. PO SCH (23:03)
[2016-12-13] MEDS: HYDROXYCHLOROQUINE 200 MG TABLET PO SCH (23:03)
[2016-12-13] MEDS: ZOLPIDEM 5 MG TABLET. PO SCH (23:04)
[2016-12-13] MEDS: THIAMINE 100 MG TABLET. PO SCH (23:05)
[2016-12-13] MEDS: OCTREOTIDE 500 MCG in IV NORMAL SALINE 100ML 100 ML IV PRN (23:08)
[2016-12-13 23:56] LABS: HEMOGLOBIN 8.4 g/dL (13.0-17.5); RED BLOOD COUNT 2.88 x10^6/uL (4.30-5.70); RED CELL DISTRIBUTION WIDTH 14.8 % (11.5-14.5); WHITE BLOOD COUNT 5.4 x10^3/uL (4.0-11.0)
[2016-12-14] VITALS (17 sets, daily range): BP systolic 95–138; BP diastolic 37–60
[2016-12-14] MEDS ORDERED: PANTOPRAZOLE SODIUM IV 80 MG in IV NORMAL SALINE 100ML 100 ML IV SCH (04:00)
[2016-12-14] MEDS: OCTREOTIDE 500 MCG in IV NORMAL SALINE 100ML 100 ML IV PRN (05:33)
--- NOTE | 2016-12-14 06:09 | EKG ---
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
[2016-12-14] MEDS ORDERED: PREDNISONE 5 MG TABLET PO SCH (09:00)
[2016-12-14] MEDS: PREDNISONE 20 MG TABLET PO SCH (09:37)
[2016-12-14] MEDS: MULTIVITAMIN with MINERAL TABLET. PO SCH (09:38)
[2016-12-14] MEDS: MVI, ADULT NO.4 WITH VIT K 10 ML, THIAMINE 100 MG, FOLIC ACID 1 MG in IV NORMAL SALINE ... IV SCH ×4 (09:38)
[2016-12-14] MEDS: HYDROXYCHLOROQUINE 200 MG TABLET PO SCH ×2 (09:38→20:43)
[2016-12-14] MEDS: THIAMINE 100 MG TABLET. PO SCH ×2 (09:38→20:43)
[2016-12-14 09:42] LABS: CALCIUM 7.9 mg/dL (8.5-10.1); CREATININE 1.2 mg/dL (0.7-1.3); GFR 60.2; POTASSIUM 4.4 mmol/L (3.5-5.1)
[2016-12-14 09:44] LABS: INR 1.6 (0.8-1.1); PROTHROMBIN TIME PATIENT 17.9 SEC (11.7-14.0)
--- NOTE | 2016-12-14 09:46 | PDOC ---
PROGRESS NOTES Chief Complaint Chief Complaint A/P GI bleeding unclear etiology Anemia due to above JESSICA Alcohol abuse Plan s/p 3 unit of PRBC on Protonix gtt and octreotide gtt Monitor hemoglobin q 6hrs Monitor renal functions CIWA protocol Ativan prn GI consult PT/OT seen ICU, If hemoglobin, anticipate transfer History of Present Illness History of Present Illness NO GI BLEEDING THIS AM NO FEVER NO CHILLS. Vitals Vitals Vital Signs Date Time Temp Pulse Resp B/P Pulse Ox O2 Delivery O2 Flow Rate FiO2 12/14/16 09:00 84 20 103/48 97 Room Air 12/14/16 07:00 98.1 98.1 Physical Exam General: Alert, Oriented X3, Cooperative, No acute distress Heart: Regular rate, Normal S1, Normal S2, No murmurs Lungs: Clear, Other Abdomen: Normal bowel sounds, Soft, No tenderness, No hepatosplenomegaly, No masses Extremities: No cyanosis, No edema Skin: Other (icteric) Labs LABS Laboratory Tests Test 12/13/16 14:27 12/13/16 14:44 12/13/16 15:31 12/13/16 23:43 White Blood Count 4.4x10^3/uL (4.0-11.0) 5.4x10^3/uL (4.0-11.0) Red Blood Count 1.90x10^6/uL (4.30-5.70) 2.88x10^6/uL (4.30-5.70) Hemoglobin 5.4g/dL (13.0-17.5) 8.4g/dL (13.0-17.5) Hematocrit 16.6% (39.0-53.0) 25.0% (39.0-53.0) Mean Corpuscular Volume 88fL (79-100) 87fL (79-100) Mean Corpuscular Hemoglobin 28pg (25-35) 29pg (25-35) Mean Corpuscular Hemoglobin Concent 32g/dL (31-37) 34g/dL (31-37) Red Cell Distribution Width 17.1% (11.5-14.5) 14.8% (11.5-14.5) Platelet Count 89x10^3/uL (140-400) 80x10^3/uL (140-400) Neutrophils (%) (Auto) 58% (31-73) Lymphocytes (%) (Auto) 19% (24-48) Monocytes (%) (Auto) 19% (0-9) Eosinophils (%) (Auto) 2% (0-3) Basophils (%) (Auto) 3% (0-3) Neutrophils # (Auto) 2.5x10^3uL (1.8-7.7) Lymphocytes # (Auto) 0.8x10^3/uL (1.0-4.8) Monocytes # (Auto) 0.8x10^3/uL (0.0-1.1) Eosinophils # (Auto) 0.1x10^3/uL (0.0-0.7) Basophils # (Auto) 0.1x10^3/uL (0.0-0.2) Prothrombin Time 19.0SEC (11.7-14.0) Prothromb Time International Ratio 1.7 (0.8-1.1) Activated Partial Thromboplast Time 26SEC (24-38) Sodium Level 140mmol/L (136-145) Potassium Level 4.2mmol/L (3.5-5.1) Chloride Level 107mmol/L (98-107) Carbon Dioxide Level 21mmol/L (21-32) Anion Gap 12 (6-14) Blood Urea Nitrogen 46mg/dL (8-26) Creatinine 1.5mg/dL (0.7-1.3) Estimated GFR (Cockcroft-Gault) 46.5 BUN/Creatinine Ratio 31 (6-20) Glucose Level 101mg/dL (70-99) Lactic Acid Level 2.5mmol/L (0.4-2.0) Calcium Level 9.0mg/dL (8.5-10.1) Total Bilirubin 2.6mg/dL (0.2-1.0) Aspartate Amino Transf (AST/SGOT) 88U/L (15-37) Alanine Aminotransferase (ALT/SGPT) 35U/L (16-63) Alkaline Phosphatase 176U/L (46-116) Troponin I Quantitative < 0.017ng/mL (0.000-0.055) Total Protein 6.0g/dL (6.4-8.2) Albumin 1.9g/dL (3.4-5.0) Albumin/Globulin Ratio 0.5 (1.0-1.7) Lipase 233U/L (73-393) Urine Collection Type Unknown Urine Color Yellow Urine Clarity Clear Urine pH 6.5 Urine Specific Cement 1.020 Urine Protein Negativemg/dL (NEG-TRACE) Urine Glucose (UA) Negativemg/dL (NEG) Urine Ketones (Stick) Negativemg/dL (NEG) Urine Blood Negative (NEG) Urine Nitrite Negative (NEG) Urine Bilirubin Negative (NEG) Urine Urobilinogen Dipstick 0.2mg/dL (0.2 mg/dL) Urine Leukocyte Esterase Negative (NEG) Urine RBC Occ/HPF (0-2) Urine WBC Occ/HPF (0-4) Urine Squamous Epithelial Cells Few/LPF Urine Transitional Epithelial Cells Occ/LPF Urine Bacteria Few/HPF (0-FEW) Urine Mucus Slight/LPF Urine Opiates Screen Neg (NEG) Urine Methadone Screen Neg (NEG) Urine Barbiturates Neg (NEG) Urine Phencyclidine Screen Neg (NEG) Urine Amphetamine/Methamphetamine Neg (NEG) Urine Benzodiazepines Screen Neg (NEG) Urine Cocaine Screen Neg (NEG) Urine Cannabinoids Screen Neg (NEG) Urine Ethyl Alcohol Neg (NEG) Stool Occult Blood Positive (NEG) Test 12/14/16 09:08 Sodium Level 141mmol/L (136-145) Potassium Level 4.4mmol/L (3.5-5.1) Chloride Level 110mmol/L (98-107) Carbon Dioxide Level 18mmol/L (21-32) Anion Gap 13 (6-14) Blood Urea Nitrogen 45mg/dL (8-26) Creatinine 1.2mg/dL (0.7-1.3) Estimated GFR (Cockcroft-Gault) 60.2 Glucose Level 95mg/dL (70-99) Calcium Level 7.9mg/dL (8.5-10.1) Assessment and Plan Assessmemt and Plan Problems Medical Problems: (1) GI bleed Status: Acute (2) Lactic acidosis Status: Acute (3) Liver function abnormality Status: Acute Problems: Comment Review of Relevant I have reviewed the following items claire (where applicable) has been applied. Labs Laboratory Tests Test 12/13/16 14:27 12/13/16 14:44 12/13/16 15:31 12/13/16 23:43 White Blood Count 4.4x10^3/uL (4.0-11.0) 5.4x10^3/uL (4.0-11.0) Red Blood Count 1.90x10^6/uL (4.30-5.70) 2.88x10^6/uL (4.30-5.70) Hemoglobin 5.4g/dL (13.0-17.5) 8.4g/dL (13.0-17.5) Hematocrit 16.6% (39.0-53.0) 25.0% (39.0-53.0) Mean Corpuscular Volume 88fL (79-100) 87fL (79-100) Mean Corpuscular Hemoglobin 28pg (25-35) 29pg (25-35) Mean Corpuscular Hemoglobin Concent 32g/dL (31-37) 34g/dL (31-37) Red Cell Distribution Width 17.1% (11.5-14.5) 14.8% (11.5-14.5) Platelet Count 89x10^3/uL (140-400) 80x10^3/uL (140-400) Neutrophils (%) (Auto) 58% (31-73) Lymphocytes (%) (Auto) 19% (24-48) Monocytes (%) (Auto) 19% (0-9) Eosinophils (%) (Auto) 2% (0-3) Basophils (%) (Auto) 3% (0-3) Neutrophils # (Auto) 2.5x10^3uL (1.8-7.7) Lymphocytes # (Auto) 0.8x10^3/uL (1.0-4.8) Monocytes # (Auto) 0.8x10^3/uL (0.0-1.1) Eosinophils # (Auto) 0.1x10^3/uL (0.0-0.7) Basophils # (Auto) 0.1x10^3/uL (0.0-0.2) Prothrombin Time 19.0SEC (11.7-14.0) Prothromb Time International Ratio 1.7 (0.8-1.1) Activated Partial Thromboplast Time 26SEC (24-38) Sodium Level 140mmol/L (136-145) Potassium Level 4.2mmol/L (3.5-5.1) Chloride Level 107mmol/L (98-107) Carbon Dioxide Level 21mmol/L (21-32) Anion Gap 12 (6-14) Blood Urea Nitrogen 46mg/dL (8-26) Creatinine 1.5mg/dL (0.7-1.3) Estimated GFR (Cockcroft-Gault) 46.5 BUN/Creatinine Ratio 31 (6-20) Glucose Level 101mg/dL (70-99) Lactic Acid Level 2.5mmol/L (0.4-2.0) Calcium Level 9.0mg/dL (8.5-10.1) Total Bilirubin 2.6mg/dL (0.2-1.0) Aspartate Amino Transf (AST/SGOT) 88U/L (15-37) Alanine Aminotransferase (ALT/SGPT) 35U/L (16-63) Alkaline Phosphatase 176U/L (46-116) Troponin I Quantitative < 0.017ng/mL (0.000-0.055) Total Protein 6.0g/dL (6.4-8.2) Albumin 1.9g/dL (3.4-5.0) Albumin/Globulin Ratio 0.5 (1.0-1.7) Lipase 233U/L (73-393) Urine Collection Type Unknown Urine Color Yellow Urine Clarity Clear Urine pH 6.5 Urine Specific Cement 1.020 Urine Protein Negativemg/dL (NEG-TRACE) Urine Glucose (UA) Negativemg/dL (NEG) Urine Ketones (Stick) Negativemg/dL (NEG) Urine Blood Negative (NEG) Urine Nitrite Negative (NEG) Urine Bilirubin Negative (NEG) Urine Urobilinogen Dipstick 0.2mg/dL (0.2 mg/dL) Urine Leukocyte Esterase Negative (NEG) Urine RBC Occ/HPF (0-2) Urine WBC Occ/HPF (0-4) Urine Squamous Epithelial Cells Few/LPF Urine Transitional Epithelial Cells Occ/LPF Urine Bacteria Few/HPF (0-FEW) Urine Mucus Slight/LPF Urine Opiates Screen Neg (NEG) Urine Methadone Screen Neg (NEG) Urine Barbiturates Neg (NEG) Urine Phencyclidine Screen Neg (NEG) Urine Amphetamine/Methamphetamine Neg (NEG) Urine Benzodiazepines Screen Neg (NEG) Urine Cocaine Screen Neg (NEG) Urine Cannabinoids Screen Neg (NEG) Urine Ethyl Alcohol Neg (NEG) Stool Occult Blood Positive (NEG) Test 12/14/16 09:08 Sodium Level 141mmol/L (136-145) Potassium Level 4.4mmol/L (3.5-5.1) Chloride Level 110mmol/L (98-107) Carbon Dioxide Level 18mmol/L (21-32) Anion Gap 13 (6-14) Blood Urea Nitrogen 45mg/dL (8-26) Creatinine 1.2mg/dL (0.7-1.3) Estimated GFR (Cockcroft-Gault) 60.2 Glucose Level 95mg/dL (70-99) Calcium Level 7.9mg/dL (8.5-10.1) Laboratory Tests Test 12/13/16 14:27 12/13/16 14:44 12/13/16 15:31 12/13/16 23:43 White Blood Count 4.4x10^3/uL (4.0-11.0) 5.4x10^3/uL (4.0-11.0) Red Blood Count 1.90x10^6/uL (4.30-5.70) 2.88x10^6/uL (4.30-5.70) Hemoglobin 5.4g/dL (13.0-17.5) 8.4g/dL (13.0-17.5) Hematocrit 16.6% (39.0-53.0) 25.0% (39.0-53.0) Mean Corpuscular Volume 88fL (79-100) 87fL (79-100) Mean Corpuscular Hemoglobin 28pg (25-35) 29pg (25-35) Mean Corpuscular Hemoglobin Concent 32g/dL (31-37) 34g/dL (31-37) Red Cell Distribution Width 17.1% (11.5-14.5) 14.8% (11.5-14.5) Platelet Count 89x10^3/uL (140-400) 80x10^3/uL (140-400) Neutrophils (%) (Auto) 58% (31-73) Lymphocytes (%) (Auto) 19% (24-48) Monocytes (%) (Auto) 19% (0-9) Eosinophils (%) (Auto) 2% (0-3) Basophils (%) (Auto) 3% (0-3) Neutrophils # (Auto) 2.5x10^3uL (1.8-7.7) Lymphocytes # (Auto) 0.8x10^3/uL (1.0-4.8) Monocytes # (Auto) 0.8x10^3/uL (0.0-1.1) Eosinophils # (Auto) 0.1x10^3/uL (0.0-0.7) Basophils # (Auto) 0.1x10^3/uL (0.0-0.2) Prothrombin Time 19.0SEC (11.7-14.0) Prothromb Time International Ratio 1.7 (0.8-1.1) Activated Partial Thromboplast Time 26SEC (24-38) Sodium Level 140mmol/L (136-145) Potassium Level 4.2mmol/L (3.5-5.1) Chloride Level 107mmol/L (98-107) Carbon Dioxide Level 21mmol/L (21-32) Anion Gap 12 (6-14) Blood Urea Nitrogen 46mg/dL (8-26) Creatinine 1.5mg/dL (0.7-1.3) Estimated GFR (Cockcroft-Gault) 46.5 BUN/Creatinine Ratio 31 (6-20) Glucose Level 101mg/dL (70-99) Lactic Acid Level 2.5mmol/L (0.4-2.0) Calcium Level 9.0mg/dL (8.5-10.1) Total Bilirubin 2.6mg/dL (0.2-1.0) Aspartate Amino Transf (AST/SGOT) 88U/L (15-37) Alanine Aminotransferase (ALT/SGPT) 35U/L (16-63) Alkaline Phosphatase 176U/L (46-116) Troponin I Quantitative < 0.017ng/mL (0.000-0.055) Total Protein 6.0g/dL (6.4-8.2) Albumin 1.9g/dL (3.4-5.0) Albumin/Globulin Ratio 0.5 (1.0-1.7) Lipase 233U/L (73-393) Urine Collection Type Unknown Urine Color Yellow Urine Clarity Clear Urine pH 6.5 Urine Specific Cement 1.020 Urine Protein Negativemg/dL (NEG-TRACE) Urine Glucose (UA) Negativemg/dL (NEG) Urine Ketones (Stick) Negativemg/dL (NEG) Urine Blood Negative (NEG) Urine Nitrite Negative (NEG) Urine Bilirubin Negative (NEG) Urine Urobilinogen Dipstick 0.2mg/dL (0.2 mg/dL) Urine Leukocyte Esterase Negative (NEG) Urine RBC Occ/HPF (0-2) Urine WBC Occ/HPF (0-4) Urine Squamous Epithelial Cells Few/LPF Urine Transitional Epithelial Cells Occ/LPF Urine Bacteria Few/HPF (0-FEW) Urine Mucus Slight/LPF Urine Opiates Screen Neg (NEG) Urine Methadone Screen Neg (NEG) Urine Barbiturates Neg (NEG) Urine Phencyclidine Screen Neg (NEG) Urine Amphetamine/Methamphetamine Neg (NEG) Urine Benzodiazepines Screen Neg (NEG) Urine Cocaine Screen Neg (NEG) Urine Cannabinoids Screen Neg (NEG) Urine Ethyl Alcohol Neg (NEG) Stool Occult Blood Positive (NEG) Test 12/14/16 09:08 Sodium Level 141mmol/L (136-145) Potassium Level 4.4mmol/L (3.5-5.1) Chloride Level 110mmol/L (98-107) Carbon Dioxide Level 18mmol/L (21-32) Anion Gap 13 (6-14) Blood Urea Nitrogen 45mg/dL (8-26) Creatinine 1.2mg/dL (0.7-1.3) Estimated GFR (Cockcroft-Gault) 60.2 Glucose Level 95mg/dL (70-99) Calcium Level 7.9mg/dL (8.5-10.1) Medications Current Medications Iohexol (Omnipaque 300 Mg/ml) 75 ml 1X ONCE IV Last administered on 12/13/16t 15:15; Start 12/13/16 at 14:45; Stop 12/13/16 at 14:46; Status DC Info 1 each 1 each PRN DAILY PRN MC SEE COMMENTS; Start 12/13/16 at 14:45; Stop 12/15/16 at 14:44 Ceftriaxone Sodium 50 ml @ 100 mls/hr 1X ONCE IV ; Start 12/13/16 at 15:45; Stop 12/13/16 at 16:14; Status DC Pantoprazole Sodium/Sodium Chloride (Protonix Iv/Iv Sodium Chloride 0.9% 100ml) 100 ml @ 10 mls/hr 1X ONCE IV Last administered on 12/13/16 16:48; Start at 16:00; Stop 12/14/16 at 01:59; Status DC Pantoprazole Sodium 80 mg 80 mg 1X ONCE IVP Last administered on 12/13/16 16: 47; Start 12/13/16 at 15:45; Stop 12/13/16 at 15:50; Status DC Octreotide Acetate/Sodium Chloride (Sandostatin/Iv Sodium Chloride 0.9% 100ml) 101 ml @ 0 mls/hr CONT PRN IV SEE I/O RECORD Last administered on 12/13/16 19: 02; Start 12/13/16 at 16:00; Stop 12/13/16 at 17:05; Status DC Octreotide Acetate 100 mcg 100 mcg 1X ONCE IV Last administered on 12/13/16 18:06; Start 12/13/16 at 15:45; Stop 12/13/16 at 15:50; Status DC Sodium Chloride 1,000 ml @ 1,000 mls/hr 1X ONCE IV Last administered on 16:46; Start 12/13/16 at 16:00; Stop 12/13/16 at 16:59; Status DC Phytonadione 10 mg/Sodium Chloride 51 ml @ 102 mls/hr 1X ONCE IV Last administered on 12/13/16 18:51; Start 12/13/16 at 16:45; Stop 12/13/16 at 17:14 ; Status DC Sodium Chloride 1,000 ml @ 1,000 mls/hr 1X ONCE IV ; Start 12/13/16 at 16:45; Stop 12/13/16 at 17:44; Status DC Sodium Chloride 1,000 ml @ 150 mls/hr CONT PRN IV SEE I/O RECORD Last administered on 12/14/16 05:37; Start 12/13/16 at 16:45 Multivitamins/ Minerals/Thiamine HCl/Folic Acid/ Sodium Chloride (Infuvite Adult / Iv Sodium Chloride 0.9% 1000ml Bag) 1,011.2 ml @ 100 mls/ hr DAILY IV Last administered on 12/14/16 09:38; Start 12/13/16 at 17:00; Stop 12/19/16 at 16:59 Multivitamins/ Calcium (Thera M Plus) 1 tab DAILY PO Last administered on 09:38; Start 12/14/16 at 09:00 Lorazepam (Ativan) 2 mg PRN Q1HR PRN IV For CIWA 8-14 Last administered on 12/14 02:09; Start 12/13/16 at 16:45 Lorazepam (Ativan) 4 mg PRN Q1HR PRN IV For CIWA 15 or greater; Start 12/13/16 at 16:45 Prednisone (Prednisone) 30 mg 1X ONCE PO ; Start 12/13/16 at 17:00; Stop at 17:28; Status DC Folic Acid (Folic Acid) 1 mg DAILY PO ; Start 12/20/16 at 09:00 Hydroxychloroquine Sulfate (Plaquenil) 200 mg BID PO ; Start 12/13/16 at 21:00; Status UNV Hydroxychloroquine Sulfate (Plaquenil) 200 mg BID PO Last administered on 09:38; Start 12/13/16 at 21:00 Prednisone (Prednisone) 5 mg DAILY PO ; Start 12/14/16 at 09:00; Stop 12/14/16 at 09:00; Status DC Tamsulosin HCl (Flomax) 0.4 mg QHS PO Last administered on 12/13/16 23:03; Start 12/13/16 at 21:00 Thiamine HCl (Vitamin B-1) 100 mg BID PO Last administered on 12/14/16 09:38; Start 12/13/16 at 21:00 Tramadol HCl (Ultram) 50 mg PRN Q6HRS PO ; Start 12/13/16 at 17:00; Stop at 17:21; Status DC Zolpidem Tartrate (Ambien) 5 mg QHS PO Last administered on 12/13/16 23:04; Start 12/13/16 at 21:00 Prednisone (Prednisone) 20 mg DAILY PO Last administered on 12/14/16 09:37; Start 12/14/16 at 09:00 Hydrocortisone Sodium Succinate (Solu-Cortef) 100 mg 1X ONCE IV ; Start at 17:00; Stop 12/13/16 at 17:09; Status DC Tramadol HCl 50 mg 50 mg PRN Q6HRS PRN PO MODERATE PAIN; Start 12/13/16 at 17: 21 Octreotide Acetate 500 mcg/ Sodium Chloride 101 ml @ 0 mls/hr CONT PRN IV SEE I /O RECORD Last administered on 12/14/16 05:33; Start 12/13/16 at 19:15 Pantoprazole Sodium/Sodium Chloride (Protonix Iv/Iv Sodium Chloride 0.9% 100ml) 100 ml @ 10 mls/hr Q10H IV Last administered on 12/14/16 03:52; Start at 04:00; Stop 12/17/16 at 03:59 Active Scripts Active Vitamin B-1 (Thiamine Hcl) 100 Mg Tablet 100 Mg PO BID Folic Acid 1 Mg Tablet 1 Mg PO DAILY Flomax (Tamsulosin Hcl) 0.4 Mg Cap.er.24h 0.4 Mg PO QHS Reported Omeprazole 20 Mg Capsule.dr 1 Cap PO DAILY Melatonin 5 Mg Tablet 5 Mg PO HS Tramadol Hcl 50 Mg Tablet 1 Tab PO PRN Q6HRS Alendronate Sodium 70 Mg Tablet 1 Tab PO WEEKLY Ambien (Zolpidem Tartrate) 5 Mg Tablet 1 Tab PO QHS Atorvastatin Calcium 10 Mg Tablet 1 Tab PO HS Prednisone 5 Mg Tablet 5 Mg PO DAILY Plaquenil (Hydroxychloroquine Sulfate) 200 Mg Tablet 200 Mg PO BID Plaquenil (Hydroxychloroquine Sulfate) 200 Mg Tablet 200 Mg PO BID Cimzia (Certolizumab Pegol) 400 Mg/2 Ml Syringekit 400 Mg SQ Vitals/I & O Vital Sign - Last 24 Hours 12/13/16 12/13/16 12/13/16 12/13/16 13:04 13:30 14:00 14:30 Temp 97.7 97.7 Pulse 90 90 90 89 Resp 22 B/P 102/57 116/57 94/53 97/51 Pulse Ox 98 99 97 99 O2 Delivery Room Air Room Air Room Air Room Air 12/13/16 12/13/16 12/13/16 12/13/16 15:00 15:30 16:00 16:30 Pulse 88 92 90 90 Resp 24 24 B/P 97/47 98/49 95/52 92/50 Pulse Ox 98 99 96 99 O2 Delivery Room Air Room Air Room Air Room Air 12/13/16 12/13/16 12/13/1620/17 17:00 17:12 17:27 17:30 Temp 98.6 98.1 98.6 98.6 98.1 98.6 Pulse 88 87 87 86 Resp B/P 99/51 112/56 109/53 109/53 Pulse Ox 99 100 O2 Delivery Room Air Room Air 12/13/16 12/13/16 12/13/16 12/13/16 17:42 17:57 17:59 18:42 Temp 98.1 98.2 98.1 98.4 98.1 98.2 98.1 98.4 Pulse 85 88 85 83 Resp B/P 108/55 125/56 108/55 116/52 Pulse Ox 100 96 O2 Delivery Room Air Room Air 12/13/16 12/13/16 12/13/16 12/13/16 19:21 19:45 19:45 20:00 Temp 98.4 98.4 98.1 98.4 98.4 98.1 Pulse 84 84 82 Resp B/P 120/56 124/52 119/54 Pulse Ox 99 97 O2 Delivery Room Air Room Air Room Air 12/13/16 12/13/16 12/13/16 12/13/16 20:15 20:30 21:00 21:15 Temp 98.4 98.2 98.2 98.4 98.2 98.2 Pulse 82 82 83 83 Resp 13 B/P 109/54 137/53 116/55 116/55 Pulse Ox 98 98 97 97 O2 Delivery Room Air Room Air Room Air Room Air 12/13/16 12/13/16 12/13/16 12/14/16 21:30 22:00 23:00 00:00 Temp 98.3 98.3 98.4 98.3 98.3 98.4 Pulse 82 80 80 82 Resp 10 07 15 15 B/P 127/54 118/51 105/55 108/55 Pulse Ox 98 97 98 97 O2 Delivery Room Air Room Air Room Air Room Air 12/14/16 12/14/16 12/14/16 12/14/16 00:00 01:00 02:00 03:07 Pulse 81 87 89 Resp 16 B/P 110/55 104/48 100/46 Pulse Ox 96 92 94 O2 Delivery Room Air Room Air Room Air Room Air 12/14/16 12/14/16 12/14/16 12/14/16 03:55 03:55 04:00 05:34 Temp 98.4 98.4 Pulse 82 86 85 Resp 16 B/P 108/55 105/46 108/51 Pulse Ox 97 95 95 O2 Delivery Room Air Room Air Room Air Room Air 12/14/16 12/14/16 12/14/16 12/14/16 06:00 07:00 07:54 08:00 Temp 98.1 98.1 Pulse 82 84 83 Resp 20 B/P 105/45 100/52 100/49 Pulse Ox 94 95 97 O2 Delivery Room Air Room Air Room Air Room Air 12/14/16 09:00 Pulse 84 Resp 20 B/P 103/48 Pulse Ox 97 O2 Delivery Room Air Intake and Output 12/13/16 12/13/16 12/14/16 15:00 23:00 07:00 Intake Total 1764 ml 1320 ml Output Total 250 ml 1150 ml Balance 1514 ml 170 ml ELLE CURIEL MD Dec 14, 2016 09:46
[2016-12-14 10:13] LABS: HEMATOCRIT 21.9 % (39.0-53.0); HEMOGLOBIN 7.6 g/dL (13.0-17.5); RED BLOOD COUNT 2.58 x10^6/uL (4.30-5.70); RED CELL DISTRIBUTION WIDTH 15.1 % (11.5-14.5); WHITE BLOOD COUNT 5.6 x10^3/uL (4.0-11.0)
--- NOTE | 2016-12-14 10:30 | PDOC ---
G I PROGRESS NOTE Subjective Only one stool since admission. No complaints of pain, etc. Slept poorly. Objective Stool old dark blood per staff. Physical Exam Lungs clear. RRR Abdomen soft, not tender nor distended. NO asterixis. Review of Relevant I have reviewed the following items claire (where applicable) has been applied. Labs Laboratory Tests Test 12/13/16 14:27 12/13/16 14:44 12/13/16 15:31 12/13/16 23:43 White Blood Count 4.4x10^3/uL (4.0-11.0) 5.4x10^3/uL (4.0-11.0) Red Blood Count 1.90x10^6/uL (4.30-5.70) 2.88x10^6/uL (4.30-5.70) Hemoglobin 5.4g/dL (13.0-17.5) 8.4g/dL (13.0-17.5) Hematocrit 16.6% (39.0-53.0) 25.0% (39.0-53.0) Mean Corpuscular Volume 88fL (79-100) 87fL (79-100) Mean Corpuscular Hemoglobin 28pg (25-35) 29pg (25-35) Mean Corpuscular Hemoglobin Concent 32g/dL (31-37) 34g/dL (31-37) Red Cell Distribution Width 17.1% (11.5-14.5) 14.8% (11.5-14.5) Platelet Count 89x10^3/uL (140-400) 80x10^3/uL (140-400) Neutrophils (%) (Auto) 58% (31-73) Lymphocytes (%) (Auto) 19% (24-48) Monocytes (%) (Auto) 19% (0-9) Eosinophils (%) (Auto) 2% (0-3) Basophils (%) (Auto) 3% (0-3) Neutrophils # (Auto) 2.5x10^3uL (1.8-7.7) Lymphocytes # (Auto) 0.8x10^3/uL (1.0-4.8) Monocytes # (Auto) 0.8x10^3/uL (0.0-1.1) Eosinophils # (Auto) 0.1x10^3/uL (0.0-0.7) Basophils # (Auto) 0.1x10^3/uL (0.0-0.2) Prothrombin Time 19.0SEC (11.7-14.0) Prothromb Time International Ratio 1.7 (0.8-1.1) Activated Partial Thromboplast Time 26SEC (24-38) Sodium Level 140mmol/L (136-145) Potassium Level 4.2mmol/L (3.5-5.1) Chloride Level 107mmol/L (98-107) Carbon Dioxide Level 21mmol/L (21-32) Anion Gap 12 (6-14) Blood Urea Nitrogen 46mg/dL (8-26) Creatinine 1.5mg/dL (0.7-1.3) Estimated GFR (Cockcroft-Gault) 46.5 BUN/Creatinine Ratio 31 (6-20) Glucose Level 101mg/dL (70-99) Lactic Acid Level 2.5mmol/L (0.4-2.0) Calcium Level 9.0mg/dL (8.5-10.1) Total Bilirubin 2.6mg/dL (0.2-1.0) Aspartate Amino Transf (AST/SGOT) 88U/L (15-37) Alanine Aminotransferase (ALT/SGPT) 35U/L (16-63) Alkaline Phosphatase 176U/L (46-116) Troponin I Quantitative < 0.017ng/mL (0.000-0.055) Total Protein 6.0g/dL (6.4-8.2) Albumin 1.9g/dL (3.4-5.0) Albumin/Globulin Ratio 0.5 (1.0-1.7) Lipase 233U/L (73-393) Urine Collection Type Unknown Urine Color Yellow Urine Clarity Clear Urine pH 6.5 Urine Specific [place] 1.020 Urine Protein Negativemg/dL (NEG-TRACE) Urine Glucose (UA) Negativemg/dL (NEG) Urine Ketones (Stick) Negativemg/dL (NEG) Urine Blood Negative (NEG) Urine Nitrite Negative (NEG) Urine Bilirubin Negative (NEG) Urine Urobilinogen Dipstick 0.2mg/dL (0.2 mg/dL) Urine Leukocyte Esterase Negative (NEG) Urine RBC Occ/HPF (0-2) Urine WBC Occ/HPF (0-4) Urine Squamous Epithelial Cells Few/LPF Urine Transitional Epithelial Cells Occ/LPF Urine Bacteria Few/HPF (0-FEW) Urine Mucus Slight/LPF Urine Opiates Screen Neg (NEG) Urine Methadone Screen Neg (NEG) Urine Barbiturates Neg (NEG) Urine Phencyclidine Screen Neg (NEG) Urine Amphetamine/Methamphetamine Neg (NEG) Urine Benzodiazepines Screen Neg (NEG) Urine Cocaine Screen Neg (NEG) Urine Cannabinoids Screen Neg (NEG) Urine Ethyl Alcohol Neg (NEG) Stool Occult Blood Positive (NEG) Test 12/14/16 09:08 12/14/16 10:05 Prothrombin Time 17.9SEC (11.7-14.0) Prothromb Time International Ratio 1.6 (0.8-1.1) Sodium Level 141mmol/L (136-145) Potassium Level 4.4mmol/L (3.5-5.1) Chloride Level 110mmol/L (98-107) Carbon Dioxide Level 18mmol/L (21-32) Anion Gap 13 (6-14) Blood Urea Nitrogen 45mg/dL (8-26) Creatinine 1.2mg/dL (0.7-1.3) Estimated GFR (Cockcroft-Gault) 60.2 Glucose Level 95mg/dL (70-99) Calcium Level 7.9mg/dL (8.5-10.1) White Blood Count 5.6x10^3/uL (4.0-11.0) Red Blood Count 2.58x10^6/uL (4.30-5.70) Hemoglobin 7.6g/dL (13.0-17.5) Hematocrit 21.9% (39.0-53.0) Mean Corpuscular Volume 85fL (79-100) Mean Corpuscular Hemoglobin 30pg (25-35) Mean Corpuscular Hemoglobin Concent 35g/dL (31-37) Red Cell Distribution Width 15.1% (11.5-14.5) Platelet Count 76x10^3/uL (140-400) Laboratory Tests Test 12/13/16 14:27 12/13/16 14:44 12/13/16 15:31 12/13/16 23:43 White Blood Count 4.4x10^3/uL (4.0-11.0) 5.4x10^3/uL (4.0-11.0) Red Blood Count 1.90x10^6/uL (4.30-5.70) 2.88x10^6/uL (4.30-5.70) Hemoglobin 5.4g/dL (13.0-17.5) 8.4g/dL (13.0-17.5) Hematocrit 16.6% (39.0-53.0) 25.0% (39.0-53.0) Mean Corpuscular Volume 88fL (79-100) 87fL (79-100) Mean Corpuscular Hemoglobin 28pg (25-35) 29pg (25-35) Mean Corpuscular Hemoglobin Concent 32g/dL (31-37) 34g/dL (31-37) Red Cell Distribution Width 17.1% (11.5-14.5) 14.8% (11.5-14.5) Platelet Count 89x10^3/uL (140-400) 80x10^3/uL (140-400) Neutrophils (%) (Auto) 58% (31-73) Lymphocytes (%) (Auto) 19% (24-48) Monocytes (%) (Auto) 19% (0-9) Eosinophils (%) (Auto) 2% (0-3) Basophils (%) (Auto) 3% (0-3) Neutrophils # (Auto) 2.5x10^3uL (1.8-7.7) Lymphocytes # (Auto) 0.8x10^3/uL (1.0-4.8) Monocytes # (Auto) 0.8x10^3/uL (0.0-1.1) Eosinophils # (Auto) 0.1x10^3/uL (0.0-0.7) Basophils # (Auto) 0.1x10^3/uL (0.0-0.2) Prothrombin Time 19.0SEC (11.7-14.0) Prothromb Time International Ratio 1.7 (0.8-1.1) Activated Partial Thromboplast Time 26SEC (24-38) Sodium Level 140mmol/L (136-145) Potassium Level 4.2mmol/L (3.5-5.1) Chloride Level 107mmol/L (98-107) Carbon Dioxide Level 21mmol/L (21-32) Anion Gap 12 (6-14) Blood Urea Nitrogen 46mg/dL (8-26) Creatinine 1.5mg/dL (0.7-1.3) Estimated GFR (Cockcroft-Gault) 46.5 BUN/Creatinine Ratio 31 (6-20) Glucose Level 101mg/dL (70-99) Lactic Acid Level 2.5mmol/L (0.4-2.0) Calcium Level 9.0mg/dL (8.5-10.1) Total Bilirubin 2.6mg/dL (0.2-1.0) Aspartate Amino Transf (AST/SGOT) 88U/L (15-37) Alanine Aminotransferase (ALT/SGPT) 35U/L (16-63) Alkaline Phosphatase 176U/L (46-116) Troponin I Quantitative < 0.017ng/mL (0.000-0.055) Total Protein 6.0g/dL (6.4-8.2) Albumin 1.9g/dL (3.4-5.0) Albumin/Globulin Ratio 0.5 (1.0-1.7) Lipase 233U/L (73-393) Urine Collection Type Unknown Urine Color Yellow Urine Clarity Clear Urine pH 6.5 Urine Specific [place] 1.020 Urine Protein Negativemg/dL (NEG-TRACE) Urine Glucose (UA) Negativemg/dL (NEG) Urine Ketones (Stick) Negativemg/dL (NEG) Urine Blood Negative (NEG) Urine Nitrite Negative (NEG) Urine Bilirubin Negative (NEG) Urine Urobilinogen Dipstick 0.2mg/dL (0.2 mg/dL) Urine Leukocyte Esterase Negative (NEG) Urine RBC Occ/HPF (0-2) Urine WBC Occ/HPF (0-4) Urine Squamous Epithelial Cells Few/LPF Urine Transitional Epithelial Cells Occ/LPF Urine Bacteria Few/HPF (0-FEW) Urine Mucus Slight/LPF Urine Opiates Screen Neg (NEG) Urine Methadone Screen Neg (NEG) Urine Barbiturates Neg (NEG) Urine Phencyclidine Screen Neg (NEG) Urine Amphetamine/Methamphetamine Neg (NEG) Urine Benzodiazepines Screen Neg (NEG) Urine Cocaine Screen Neg (NEG) Urine Cannabinoids Screen Neg (NEG) Urine Ethyl Alcohol Neg (NEG) Stool Occult Blood Positive (NEG) Test 2/21/17 09:08 12/14/16 10:05 Prothrombin Time 17.9SEC (11.7-14.0) Prothromb Time International Ratio 1.6 (0.8-1.1) Sodium Level 141mmol/L (136-145) Potassium Level 4.4mmol/L (3.5-5.1) Chloride Level 110mmol/L (98-107) Carbon Dioxide Level 18mmol/L (21-32) Anion Gap 13 (6-14) Blood Urea Nitrogen 45mg/dL (8-26) Creatinine 1.2mg/dL (0.7-1.3) Estimated GFR (Cockcroft-Gault) 60.2 Glucose Level 95mg/dL (70-99) Calcium Level 7.9mg/dL (8.5-10.1) White Blood Count 5.6x10^3/uL (4.0-11.0) Red Blood Count 2.58x10^6/uL (4.30-5.70) Hemoglobin 7.6g/dL (13.0-17.5) Hematocrit 21.9% (39.0-53.0) Mean Corpuscular Volume 85fL (79-100) Mean Corpuscular Hemoglobin 30pg (25-35) Mean Corpuscular Hemoglobin Concent 35g/dL (31-37) Red Cell Distribution Width 15.1% (11.5-14.5) Platelet Count 76x10^3/uL (140-400) Medications Current Medications Iohexol (Omnipaque 300 Mg/ml) 75 ml 1X ONCE IV Last administered on 12/13/16 15:15; Start 12/13/16 at 14:45; Stop 12/13/16 at 14:46; Status DC Info 1 each 1 each PRN DAILY PRN MC SEE COMMENTS; Start 12/13/16 at 14:45; Stop 12/15/16 at 14:44 Ceftriaxone Sodium 50 ml @ 100 mls/hr 1X ONCE IV ; Start 12/13/16 at 15:45; Stop 12/13/16 at 16:14; Status DC Pantoprazole Sodium/Sodium Chloride (Protonix Iv/Iv Sodium Chloride 0.9% 100ml) 100 ml @ 10 mls/hr 1X ONCE IV Last administered on 12/13/16 16:48; Start at 16:00; Stop 12/14/16 at 01:59; Status DC Pantoprazole Sodium 80 mg 80 mg 1X ONCE IVP Last administered on 12/13/16 16: 47; Start 12/13/16 at 15:45; Stop 12/13/16 at 15:50; Status DC Octreotide Acetate/Sodium Chloride (Sandostatin/Iv Sodium Chloride 0.9% 100ml) 101 ml @ 0 mls/hr CONT PRN IV SEE I/O RECORD Last administered on 12/13/16 19: 02; Start 12/13/16 at 16:00; Stop 12/13/16 at 17:05; Status DC Octreotide Acetate 100 mcg 100 mcg 1X ONCE IV Last administered on 12/13/16 18:06; Start 12/13/16 at 15:45; Stop 12/13/16 at 15:50; Status DC Sodium Chloride 1,000 ml @ 1,000 mls/hr 1X ONCE IV Last administered on 16:46; Start 12/13/16 at 16:00; Stop 12/13/16 at 16:59; Status DC Phytonadione 10 mg/Sodium Chloride 51 ml @ 102 mls/hr 1X ONCE IV Last administered on 12/13/16 18:51; Start 12/13/16 at 16:45; Stop 12/13/16 at 17:14 ; Status DC Sodium Chloride 1,000 ml @ 1,000 mls/hr 1X ONCE IV ; Start 12/13/16 at 16:45; Stop 12/13/16 at 17:44; Status DC Sodium Chloride 1,000 ml @ 150 mls/hr CONT PRN IV SEE I/O RECORD Last administered on 12/14/16 05:37; Start 12/13/16 at 16:45 Multivitamins/ Minerals/Thiamine HCl/Folic Acid/ Sodium Chloride (Infuvite Adult / Iv Sodium Chloride 0.9% 1000ml Bag) 1,011.2 ml @ 100 mls/ hr DAILY IV Last administered on 12/14/16 09:38; Start 12/13/16 at 17:00; Stop 12/19/16 at 16:59 Multivitamins/ Calcium (Thera M Plus) 1 tab DAILY PO Last administered on 09:38; Start 12/14/16 at 09:00 Lorazepam (Ativan) 2 mg PRN Q1HR PRN IV For CIWA 8-14 Last administered on 12/14 02:09; Start 12/13/16 at 16:45 Lorazepam (Ativan) 4 mg PRN Q1HR PRN IV For CIWA 15 or greater; Start 12/13/16 at 16:45 Prednisone (Prednisone) 30 mg 1X ONCE PO ; Start 12/13/16 at 17:00; Stop at 17:28; Status DC Folic Acid (Folic Acid) 1 mg DAILY PO ; Start 12/20/16 at 09:00 Hydroxychloroquine Sulfate (Plaquenil) 200 mg BID PO ; Start 12/13/16 at 21:00; Status UNV Hydroxychloroquine Sulfate (Plaquenil) 200 mg BID PO Last administered on 09:38; Start 12/13/16 at 21:00 Prednisone (Prednisone) 5 mg DAILY PO ; Start 12/14/16 at 09:00; Stop 12/14/16 at 09:00; Status DC Tamsulosin HCl (Flomax) 0.4 mg QHS PO Last administered on 12/13/16 23:03; Start 12/13/16 at 21:00 Thiamine HCl (Vitamin B-1) 100 mg BID PO Last administered on 12/14/16 09:38; Start 12/13/16 at 21:00 Tramadol HCl (Ultram) 50 mg PRN Q6HRS PO ; Start 12/13/16 at 17:00; Stop at 17:21; Status DC Zolpidem Tartrate (Ambien) 5 mg QHS PO Last administered on 12/13/16 23:04; Start 12/13/16 at 21:00 Prednisone (Prednisone) 20 mg DAILY PO Last administered on 12/14/16 09:37; Start 12/14/16 at 09:00 Hydrocortisone Sodium Succinate (Solu-Cortef) 100 mg 1X ONCE IV ; Start at 17:00; Stop 12/13/16 at 17:09; Status DC Tramadol HCl 50 mg 50 mg PRN Q6HRS PRN PO MODERATE PAIN; Start 12/13/16 at 17: 21 Octreotide Acetate 500 mcg/ Sodium Chloride 101 ml @ 0 mls/hr CONT PRN IV SEE I /O RECORD Last administered on 12/14/16 05:33; Start 12/13/16 at 19:15 Pantoprazole Sodium/Sodium Chloride (Protonix Iv/Iv Sodium Chloride 0.9% 100ml) 100 ml @ 10 mls/hr Q10H IV Last administered on 12/14/16 03:52; Start at 04:00; Stop 12/17/16 at 03:59 Active Scripts Active Vitamin B-1 (Thiamine Hcl) 100 Mg Tablet 100 Mg PO BID Folic Acid 1 Mg Tablet 1 Mg PO DAILY Flomax (Tamsulosin Hcl) 0.4 Mg Cap.er.24h 0.4 Mg PO QHS Reported Omeprazole 20 Mg Capsule.dr 1 Cap PO DAILY Melatonin 5 Mg Tablet 5 Mg PO HS Tramadol Hcl 50 Mg Tablet 1 Tab PO PRN Q6HRS Alendronate Sodium 70 Mg Tablet 1 Tab PO WEEKLY Ambien (Zolpidem Tartrate) 5 Mg Tablet 1 Tab PO QHS Atorvastatin Calcium 10 Mg Tablet 1 Tab PO HS Prednisone 5 Mg Tablet 5 Mg PO DAILY Plaquenil (Hydroxychloroquine Sulfate) 200 Mg Tablet 200 Mg PO BID Plaquenil (Hydroxychloroquine Sulfate) 200 Mg Tablet 200 Mg PO BID Cimzia (Certolizumab Pegol) 400 Mg/2 Ml Syringekit 400 Mg SQ Vitals/I & O Vital Sign - Last 24 Hours 12/13/16 12/13/16 12/13/16 12/13/16 13:04 13:30 14:00 14:30 Temp 97.7 97.7 Pulse 90 90 90 89 Resp 22 B/P 102/57 116/57 94/53 97/51 Pulse Ox 98 99 97 99 O2 Delivery Room Air Room Air Room Air Room Air 12/13/16 12/13/16 12/13/16 12/13/16 15:00 15:30 16:00 16:30 Pulse 88 92 90 90 Resp 18 22 24 24 B/P 97/47 98/49 95/52 92/50 Pulse Ox 98 99 96 99 O2 Delivery Room Air Room Air Room Air Room Air 12/13/16 12/13/16 12/13/16 12/13/16 17:00 17:12 17:27 17:30 Temp 98.6 98.1 98.6 98.6 98.1 98.6 Pulse 88 87 87 86 Resp 18 B/P 99/51 112/56 109/53 109/53 Pulse Ox 99 100 O2 Delivery Room Air Room Air 12/13/16 12/13/16 12/13/16 12/13/16 17:42 17:57 17:59 18:42 Temp 98.1 98.2 98.1 98.4 98.1 98.2 98.1 98.4 Pulse 85 88 85 83 Resp B/P 108/55 125/56 108/55 116/52 Pulse Ox 100 96 O2 Delivery Room Air Room Air 12/13/16 12/13/16 12/13/16 12/13/16 19:21 19:45 19:45 20:00 Temp 98.4 98.4 98.1 98.4 98.4 98.1 Pulse 84 84 82 Resp B/P 120/56 124/52 119/54 Pulse Ox 99 97 O2 Delivery Room Air Room Air Room Air 12/13/16 12/13/16 12/13/16 12/13/16 20:15 20:30 21:00 21:15 Temp 98.4 98.2 98.2 98.4 98.2 98.2 Pulse 82 82 83 83 Resp 13 B/P 109/54 137/53 116/55 116/55 Pulse Ox 98 98 97 97 O2 Delivery Room Air Room Air Room Air Room Air 12/13/16 12/13/16 12/13/16 12/14/16 21:30 22:00 23:00 00:00 Temp 98.3 98.3 98.4 98.3 98.3 98.4 Pulse 82 80 80 82 Resp 10 07 15 15 B/P 127/54 118/51 105/55 108/55 Pulse Ox 98 97 98 97 O2 Delivery Room Air Room Air Room Air Room Air 12/14/16 12/14/16 12/14/16 12/14/16 00:00 01:00 02:00 03:07 Pulse 81 87 89 Resp 16 B/P 110/55 104/48 100/46 Pulse Ox 96 92 94 O2 Delivery Room Air Room Air Room Air Room Air 12/14/16 12/14/16 12/14/16 12/14/16 03:55 03:55 04:00 05:34 Temp 98.4 98.4 Pulse 82 86 85 Resp 15 16 16 B/P 108/55 105/46 108/51 Pulse Ox 97 95 95 O2 Delivery Room Air Room Air Room Air Room Air 12/14/16 12/14/16 12/14/16 12/14/16 06:00 07:00 07:54 08:00 Temp 98.1 98.1 Pulse 82 84 83 Resp 16 20 20 B/P 105/45 100/52 100/49 Pulse Ox 94 95 97 O2 Delivery Room Air Room Air Room Air Room Air 12/14/16 12/14/16 09:00 10:00 Pulse 84 84 Resp 20 20 B/P 103/48 95/37 Pulse Ox 97 96 O2 Delivery Room Air Room Air Intake and Output 12/13/16 12/13/16 12/14/16 15:00 23:00 07:00 Intake Total 1764 ml 1320 ml Output Total 250 ml 1150 ml Balance 1514 ml 170 ml Images Bleeding scan negative. Problem List Problems Medical Problems: (1) GI bleed Status: Acute (2) Lactic acidosis Status: Acute (3) Liver function abnormality Status: Acute Assessment Probable diverticular bleed. Seems to have stopped. Alcohol w/drawal, mild. Other issues as before. Plan of Care Note Continue banana bag. D/c octreotide. PO PPI. Clears po. OK to transfer out of ICU; would not advance diet until tomorrow if remains w/o clinical bleeding. As always, needs to stop alcohol. Consider one more unit of PRBC's. MATTHEW CHIN MD Dec 14, 2016 10:30
--- NOTE | 2016-12-14 11:12 | ACF ---
Admission Forms Criteria GASTROINTESTINAL BLEEDING Clinical Indications for Inpatient Care (Place 'X' for any and all applicable criteria): Ongoing inpatient care may be indicated for gastrointestinal bleeding with ANY ONE of the following (4)(20)(21)(22)(23)(24): [X]I. Active bleeding (eg, fresh voluminous blood in emesis or nasogastric aspirate, or per rectum) [ ]II. Hemodynamic instability [ ]III. Anticoagulation therapy or coagulopathy ((eg, advanced liver disease, irreversible anticoagulation) [ ]IV. Ischemic colitis (22) [ ]V. Endoscopy showing arterial bleeding, adherent clot, nonbleeding visible vessel, varices, flat red spots, ulcer size greater than 2 cm, or portal hypertensive gastropathy [ ]. High-risk low platelet count [ ]VII. Anemia requiring inpatient care as indicated by ANY ONE of the following a)[ ] Cognitive impairment b)[ ] Syncope c)[ ] Heart failure d)[ ] Chest pain e)[ ] Dyspnea f)[ ] Other findings suggesting inadequate perfusion (eg, peripheral or myocardial ischemia, end organ dysfunction) [ ]VIII. High-risk low platelet count [ ]IX. Suspected variceal cause of bleeding as indicated by ANY ONE of the following(27)(28): a)[ ] Known varices b)[ ] Hepatomegaly or splenomegaly c)[ ] Ascites d)[ ] Jaundice or scleral icterus e)[ ] History of liver disease (eg, cirrhosis) f)[ ] Physical findings of portal hypertension (eg, caput medusa) g)[ ] Comorbid disorder indicating risk for portal vein thrombosis (eg , abdominal surgery, sepsis, shock, exchange transfusion, prior umbilical vein catheterization) Extended stay may be needed until ALL of the following are present(20)(38)(47): [ ]a) Hemodynamic stability [ ]b) No evidence of active bleeding (eg, stable Hematocrit) [ ]c) Platelet count, prothrombin time, and partial thromboplastin time acceptable for next level of care [ ]d) Surgical or other acute intervention not needed [ ]e) Oral hydration and diet tolerated The original [facility] [employer] content created by Lydia Ashley has been revised. The portions of the content which have been revised are identified through the use of italic text or in bold, and Lydia Ashley has neither reviewed nor approved the modified material. All other unmodified content is copyright [facility]. Please see references footnoted in the original [facility] edition 2016 Admission Criteria Met?: Yes ELIUD VINSON Dec 14, 2016 11:12
--- NOTE | 2016-12-14 11:52 | PDOC2 ---
VERA MILLER FEEDER CATCHER 12/14/16 1152: CONSULT Date of Consult Date of Consult DATE: 12/14/16 TIME: 11:44 Reason for Consult Reason for Consult: GI bleed Referring Physician Referring Physician: ER Identification/Chief Complaint Chief Complaint blood in stool Source Source: Chart review, Patient History of Present Illness Reason for Visit: Reports at home for 2 days had blood in stool. Very weak, fatigued and moderate to severe abdominal pain at home. History of cirrhosis, alcohol abuse Currently minimal abdominal pain, one dark stool this AM, none since, fatigue is mildly improved Past Medical History Cardiovascular: HTN, Hyperlipidemia Pulmonary: COPD, Other (prior respiratory failure) Musculoskeletal: low back pain Rheumatologic: Rheumatoid arthritis Renal/: Chronic renal insuff, Acute renal failure Endocrine: Osteoporosis Past Surgical History Past Surgical History: Cholecystectomy, Other (pericardial window, STSG, excise BCCA) Family History Family History: No Significant Social History Quit ALCOHOL: heavy Drugs: None Current Problem List Problem List Problems Medical Problems: (1) GI bleed Status: Acute (2) Lactic acidosis Status: Acute (3) Liver function abnormality Status: Acute Current Medications Current Medications Current Medications Iohexol (Omnipaque 300 Mg/ml) 75 ml 1X ONCE IV Last administered on 12/13/16 15:15; Start 12/13/16 at 14:45; Stop 12/13/16 at 14:46; Status DC Info 1 each 1 each PRN DAILY PRN MC SEE COMMENTS; Start 12/13/16 at 14:45; Stop 12/15/16 at 14:44 Ceftriaxone Sodium 50 ml @ 100 mls/hr 1X ONCE IV ; Start 12/13/16 at 15:45; Stop 12/13/16 at 16:14; Status DC Pantoprazole Sodium/Sodium Chloride (Protonix Iv/Iv Sodium Chloride 0.9% 100ml) 100 ml @ 10 mls/hr 1X ONCE IV Last administered on 12/13/16 16:48; Start at 16:00; Stop 12/14/16 at 01:59; Status DC Pantoprazole Sodium 80 mg 80 mg 1X ONCE IVP Last administered on 12/13/16 16: 47; Start 12/13/16 at 15:45; Stop 12/13/16 at 15:50; Status DC Octreotide Acetate/Sodium Chloride (Sandostatin/Iv Sodium Chloride 0.9% 100ml) 101 ml @ 0 mls/hr CONT PRN IV SEE I/O RECORD Last administered on 12/13/16 19: 02; Start 12/13/16 at 16:00; Stop 12/13/16 at 17:05; Status DC Octreotide Acetate 100 mcg 100 mcg 1X ONCE IV Last administered on 12/13/16 18:06; Start 12/13/16 at 15:45; Stop 12/14/16 at 10:35; Status DC Sodium Chloride 1,000 ml @ 1,000 mls/hr 1X ONCE IV Last administered on 16:46; Start 12/13/16 at 16:00; Stop 12/13/16 at 16:59; Status DC Phytonadione 10 mg/Sodium Chloride 51 ml @ 102 mls/hr 1X ONCE IV Last administered on 12/13/16 18:51; Start 12/13/16 at 16:45; Stop 12/13/16 at 17:14 ; Status DC Sodium Chloride 1,000 ml @ 1,000 mls/hr 1X ONCE IV ; Start 12/13/16 at 16:45; Stop 12/13/16 at 17:44; Status DC Sodium Chloride 1,000 ml @ 150 mls/hr CONT PRN IV SEE I/O RECORD Last administered on 12/14/16 05:37; Start 12/13/16 at 16:45; Stop 12/14/16 at 10:54 ; Status DC Multivitamins/ Minerals/Thiamine HCl/Folic Acid/ Sodium Chloride (Infuvite Adult / Iv Sodium Chloride 0.9% 1000ml Bag) 1,011.2 ml @ 100 mls/ hr DAILY IV Last administered on 12/14/16 09:38; Start 12/13/16 at 17:00; Stop 12/19/16 at 16:59 Multivitamins/ Calcium (Thera M Plus) 1 tab DAILY PO Last administered on 09:38; Start 12/14/16 at 09:00 Lorazepam (Ativan) 2 mg PRN Q1HR PRN IV For CIWA 8-14 Last administered on 12/14 02:09; Start 12/13/16 at 16:45 Lorazepam (Ativan) 4 mg PRN Q1HR PRN IV For CIWA 15 or greater; Start 12/13/16 at 16:45 Prednisone (Prednisone) 30 mg 1X ONCE PO ; Start 12/13/16 at 17:00; Stop at 17:28; Status DC Folic Acid (Folic Acid) 1 mg DAILY PO ; Start 12/20/16 at 09:00 Hydroxychloroquine Sulfate (Plaquenil) 200 mg BID PO ; Start 12/13/16 at 21:00; Status UNV Hydroxychloroquine Sulfate (Plaquenil) 200 mg BID PO Last administered on 09:38; Start 12/13/16 at 21:00 Prednisone (Prednisone) 5 mg DAILY PO ; Start 12/14/16 at 09:00; Stop 12/14/16 at 09:00; Status DC Tamsulosin HCl (Flomax) 0.4 mg QHS PO Last administered on 12/13/16 23:03; Start 12/13/16 at 21:00 Thiamine HCl (Vitamin B-1) 100 mg BID PO Last administered on 12/14/16 09:38; Start 12/13/16 at 21:00 Tramadol HCl (Ultram) 50 mg PRN Q6HRS PO ; Start 12/13/16 at 17:00; Stop at 17:21; Status DC Zolpidem Tartrate (Ambien) 5 mg QHS PO Last administered on 12/13/16 23:04; Start 12/13/16 at 21:00 Prednisone (Prednisone) 20 mg DAILY PO Last administered on 12/14/16 09:37; Start 12/14/16 at 09:00 Hydrocortisone Sodium Succinate (Solu-Cortef) 100 mg 1X ONCE IV ; Start at 17:00; Stop 12/13/16 at 17:09; Status DC Tramadol HCl 50 mg 50 mg PRN Q6HRS PRN PO MODERATE PAIN; Start 12/13/16 at 17: 21 Octreotide Acetate 500 mcg/ Sodium Chloride 101 ml @ 0 mls/hr CONT PRN IV SEE I /O RECORD Last administered on 12/14/16 05:33; Start 12/13/16 at 19:15; Stop at 10:35; Status DC Pantoprazole Sodium/Sodium Chloride (Protonix Iv/Iv Sodium Chloride 0.9% 100ml) 100 ml @ 10 mls/hr Q10H IV Last administered on 12/14/16t 03:52; Start at 04:00; Stop 12/14/16 at 10:35; Status DC Pantoprazole Sodium (Protonix) 40 mg DAILYAC PO ; Start 12/15/16 at 07:30 Active Scripts Active Vitamin B-1 (Thiamine Hcl) 100 Mg Tablet 100 Mg PO BID Folic Acid 1 Mg Tablet 1 Mg PO DAILY Flomax (Tamsulosin Hcl) 0.4 Mg Cap.er.24h 0.4 Mg PO QHS Reported Omeprazole 20 Mg Capsule.dr 1 Cap PO DAILY Melatonin 5 Mg Tablet 5 Mg PO HS Tramadol Hcl 50 Mg Tablet 1 Tab PO PRN Q6HRS Alendronate Sodium 70 Mg Tablet 1 Tab PO WEEKLY Ambien (Zolpidem Tartrate) 5 Mg Tablet 1 Tab PO QHS Atorvastatin Calcium 10 Mg Tablet 1 Tab PO HS Prednisone 5 Mg Tablet 5 Mg PO DAILY Plaquenil (Hydroxychloroquine Sulfate) 200 Mg Tablet 200 Mg PO BID Plaquenil (Hydroxychloroquine Sulfate) 200 Mg Tablet 200 Mg PO BID Cimzia (Certolizumab Pegol) 400 Mg/2 Ml Syringekit 400 Mg SQ Allergies Allergies: Coded Allergies: No Known Drug Allergies (Unverified , 04/21/14) ROS General: YES: Fatigue, Malaise, No: Chills PSYCHOLOGICAL ROS: No: Anxiety, Depression Eyes: No Blurry vision, No Double vision HEENT: No: Heacaches, Sore Throat Hematological and Lymphatic: YES: Bleeding Problems, No: Blood Clots Respiratory: No: Cough, Shortness of breath Cardiovascular: No Chest Pain, No Palpitations Gastrointestinal: Yes Other (see hpi) Genitourinary: No Dysuria, No Frequency Musculoskeletal: No Joint Pain, No Muscle Pain Neurological: Yes Impaired Coord/balance, No Confusion Skin: No Pruritus, No Rash Physical Exam General: Alert, Oriented X3, Cooperative, No acute distress HEENT: PERRLA, Mucous membr. moist/pink Lungs: Clear to auscultation, Normal air movement Heart: Regular rate, Normal S1, Normal S2, No murmurs Abdomen: Normal bowel sounds, Soft, No tenderness, No masses Extremities: No clubbing, No cyanosis Skin: No breakdown, No significant lesion Neuro: Normal speech, Sensation intact Psych/Mental Status: Mental status NL, Mood NL MUSCULOSKELETAL: No deformity, No swelling Vitals VITALS Vital Signs Date Time Temp Pulse Resp B/P Pulse Ox O2 Delivery O2 Flow Rate FiO2 12/14/16 10:00 84 20 95/37 96 Room Air 12/14/16 07:00 98.1 98.1 Labs Labs Laboratory Tests Test 12/13/16 14:27 12/13/16 14:44 12/13/16 15:31 12/13/16 23:43 White Blood Count 4.4x10^3/uL (4.0-11.0) 5.4x10^3/uL (4.0-11.0) Red Blood Count 1.90x10^6/uL (4.30-5.70) 2.88x10^6/uL (4.30-5.70) Hemoglobin 5.4g/dL (13.0-17.5) 8.4g/dL (13.0-17.5) Hematocrit 16.6% (39.0-53.0) 25.0% (39.0-53.0) Mean Corpuscular Volume 88fL (79-100) 87fL (79-100) Mean Corpuscular Hemoglobin 28pg (25-35) 29pg (25-35) Mean Corpuscular Hemoglobin Concent 32g/dL (31-37) 34g/dL (31-37) Red Cell Distribution Width 17.1% (11.5-14.5) 14.8% (11.5-14.5) Platelet Count 89x10^3/uL (140-400) 80x10^3/uL (140-400) Neutrophils (%) (Auto) 58% (31-73) Lymphocytes (%) (Auto) 19% (24-48) Monocytes (%) (Auto) 19% (0-9) Eosinophils (%) (Auto) 2% (0-3) Basophils (%) (Auto) 3% (0-3) Neutrophils # (Auto) 2.5x10^3uL (1.8-7.7) Lymphocytes # (Auto) 0.8x10^3/uL (1.0-4.8) Monocytes # (Auto) 0.8x10^3/uL (0.0-1.1) Eosinophils # (Auto) 0.1x10^3/uL (0.0-0.7) Basophils # (Auto) 0.1x10^3/uL (0.0-0.2) Prothrombin Time 19.0SEC (11.7-14.0) Prothromb Time International Ratio 1.7 (0.8-1.1) Activated Partial Thromboplast Time 26SEC (24-38) Sodium Level 140mmol/L (136-145) Potassium Level 4.2mmol/L (3.5-5.1) Chloride Level 107mmol/L (98-107) Carbon Dioxide Level 21mmol/L (21-32) Anion Gap 12 (6-14) Blood Urea Nitrogen 46mg/dL (8-26) Creatinine 1.5mg/dL (0.7-1.3) Estimated GFR (Cockcroft-Gault) 46.5 BUN/Creatinine Ratio 31 (6-20) Glucose Level 101mg/dL (70-99) Lactic Acid Level 2.5mmol/L (0.4-2.0) Calcium Level 9.0mg/dL (8.5-10.1) Total Bilirubin 2.6mg/dL (0.2-1.0) Aspartate Amino Transf (AST/SGOT) 88U/L (15-37) Alanine Aminotransferase (ALT/SGPT) 35U/L (16-63) Alkaline Phosphatase 176U/L (46-116) Troponin I Quantitative < 0.017ng/mL (0.000-0.055) Total Protein 6.0g/dL (6.4-8.2) Albumin 1.9g/dL (3.4-5.0) Albumin/Globulin Ratio 0.5 (1.0-1.7) Lipase 233U/L (73-393) Urine Collection Type Unknown Urine Color Yellow Urine Clarity Clear Urine pH 6.5 Urine Specific [place] 1.020 Urine Protein Negativemg/dL (NEG-TRACE) Urine Glucose (UA) Negativemg/dL (NEG) Urine Ketones (Stick) Negativemg/dL (NEG) Urine Blood Negative (NEG) Urine Nitrite Negative (NEG) Urine Bilirubin Negative (NEG) Urine Urobilinogen Dipstick 0.2mg/dL (0.2 mg/dL) Urine Leukocyte Esterase Negative (NEG) Urine RBC Occ/HPF (0-2) Urine WBC Occ/HPF (0-4) Urine Squamous Epithelial Cells Few/LPF Urine Transitional Epithelial Cells Occ/LPF Urine Bacteria Few/HPF (0-FEW) Urine Mucus Slight/LPF Urine Opiates Screen Neg (NEG) Urine Methadone Screen Neg (NEG) Urine Barbiturates Neg (NEG) Urine Phencyclidine Screen Neg (NEG) Urine Amphetamine/Methamphetamine Neg (NEG) Urine Benzodiazepines Screen Neg (NEG) Urine Cocaine Screen Neg (NEG) Urine Cannabinoids Screen Neg (NEG) Urine Ethyl Alcohol Neg (NEG) Stool Occult Blood Positive (NEG) Test 12/14/16 09:08 12/14/16 10:05 Prothrombin Time 17.9SEC (11.7-14.0) Prothromb Time International Ratio 1.6 (0.8-1.1) Sodium Level 141mmol/L (136-145) Potassium Level 4.4mmol/L (3.5-5.1) Chloride Level 110mmol/L (98-107) Carbon Dioxide Level 18mmol/L (21-32) Anion Gap 13 (6-14) Blood Urea Nitrogen 45mg/dL (8-26) Creatinine 1.2mg/dL (0.7-1.3) Estimated GFR (Cockcroft-Gault) 60.2 Glucose Level 95mg/dL (70-99) Calcium Level 7.9mg/dL (8.5-10.1) White Blood Count 5.6x10^3/uL (4.0-11.0) Red Blood Count 2.58x10^6/uL (4.30-5.70) Hemoglobin 7.6g/dL (13.0-17.5) Hematocrit 21.9% (39.0-53.0) Mean Corpuscular Volume 85fL (79-100) Mean Corpuscular Hemoglobin 30pg (25-35) Mean Corpuscular Hemoglobin Concent 35g/dL (31-37) Red Cell Distribution Width 15.1% (11.5-14.5) Platelet Count 76x10^3/uL (140-400) Laboratory Tests Test 12/13/16 14:27 12/13/16 14:44 12/13/16 15:31 12/13/16 23:43 White Blood Count 4.4x10^3/uL (4.0-11.0) 5.4x10^3/uL (4.0-11.0) Red Blood Count 1.90x10^6/uL (4.30-5.70) 2.88x10^6/uL (4.30-5.70) Hemoglobin 5.4g/dL (13.0-17.5) 8.4g/dL (13.0-17.5) Hematocrit 16.6% (39.0-53.0) 25.0% (39.0-53.0) Mean Corpuscular Volume 88fL (79-100) 87fL (79-100) Mean Corpuscular Hemoglobin 28pg (25-35) 29pg (25-35) Mean Corpuscular Hemoglobin Concent 32g/dL (31-37) 34g/dL (31-37) Red Cell Distribution Width 17.1% (11.5-14.5) 14.8% (11.5-14.5) Platelet Count 89x10^3/uL (140-400) 80x10^3/uL (140-400) Neutrophils (%) (Auto) 58% (31-73) Lymphocytes (%) (Auto) 19% (24-48) Monocytes (%) (Auto) 19% (0-9) Eosinophils (%) (Auto) 2% (0-3) Basophils (%) (Auto) 3% (0-3) Neutrophils # (Auto) 2.5x10^3uL (1.8-7.7) Lymphocytes # (Auto) 0.8x10^3/uL (1.0-4.8) Monocytes # (Auto) 0.8x10^3/uL (0.0-1.1) Eosinophils # (Auto) 0.1x10^3/uL (0.0-0.7) Basophils # (Auto) 0.1x10^3/uL (0.0-0.2) Prothrombin Time 19.0SEC (11.7-14.0) Prothromb Time International Ratio 1.7 (0.8-1.1) Activated Partial Thromboplast Time 26SEC (24-38) Sodium Level 140mmol/L (136-145) Potassium Level 4.2mmol/L (3.5-5.1) Chloride Level 107mmol/L (98-107) Carbon Dioxide Level 21mmol/L (21-32) Anion Gap 12 (6-14) Blood Urea Nitrogen 46mg/dL (8-26) Creatinine 1.5mg/dL (0.7-1.3) Estimated GFR (Cockcroft-Gault) 46.5 BUN/Creatinine Ratio 31 (6-20) Glucose Level 101mg/dL (70-99) Lactic Acid Level 2.5mmol/L (0.4-2.0) Calcium Level 9.0mg/dL (8.5-10.1) Total Bilirubin 2.6mg/dL (0.2-1.0) Aspartate Amino Transf (AST/SGOT) 88U/L (15-37) Alanine Aminotransferase (ALT/SGPT) 35U/L (16-63) Alkaline Phosphatase 176U/L (46-116) Troponin I Quantitative < 0.017ng/mL (0.000-0.055) Total Protein 6.0g/dL (6.4-8.2) Albumin 1.9g/dL (3.4-5.0) Albumin/Globulin Ratio 0.5 (1.0-1.7) Lipase 233U/L (73-393) Urine Collection Type Unknown Urine Color Yellow Urine Clarity Clear Urine pH 6.5 Urine Specific [place] 1.020 Urine Protein Negativemg/dL (NEG-TRACE) Urine Glucose (UA) Negativemg/dL (NEG) Urine Ketones (Stick) Negativemg/dL (NEG) Urine Blood Negative (NEG) Urine Nitrite Negative (NEG) Urine Bilirubin Negative (NEG) Urine Urobilinogen Dipstick 0.2mg/dL (0.2 mg/dL) Urine Leukocyte Esterase Negative (NEG) Urine RBC Occ/HPF (0-2) Urine WBC Occ/HPF (0-4) Urine Squamous Epithelial Cells Few/LPF Urine Transitional Epithelial Cells Occ/LPF Urine Bacteria Few/HPF (0-FEW) Urine Mucus Slight/LPF Urine Opiates Screen Neg (NEG) Urine Methadone Screen Neg (NEG) Urine Barbiturates Neg (NEG) Urine Phencyclidine Screen Neg (NEG) Urine Amphetamine/Methamphetamine Neg (NEG) Urine Benzodiazepines Screen Neg (NEG) Urine Cocaine Screen Neg (NEG) Urine Cannabinoids Screen Neg (NEG) Urine Ethyl Alcohol Neg (NEG) Stool Occult Blood Positive (NEG) Test 12/14/16 09:08 12/14/16 10:05 Prothrombin Time 17.9SEC (11.7-14.0) Prothromb Time International Ratio 1.6 (0.8-1.1) Sodium Level 141mmol/L (136-145) Potassium Level 4.4mmol/L (3.5-5.1) Chloride Level 110mmol/L (98-107) Carbon Dioxide Level 18mmol/L (21-32) Anion Gap 13 (6-14) Blood Urea Nitrogen 45mg/dL (8-26) Creatinine 1.2mg/dL (0.7-1.3) Estimated GFR (Cockcroft-Gault) 60.2 Glucose Level 95mg/dL (70-99) Calcium Level 7.9mg/dL (8.5-10.1) White Blood Count 5.6x10^3/uL (4.0-11.0) Red Blood Count 2.58x10^6/uL (4.30-5.70) Hemoglobin 7.6g/dL (13.0-17.5) Hematocrit 21.9% (39.0-53.0) Mean Corpuscular Volume 85fL (79-100) Mean Corpuscular Hemoglobin 30pg (25-35) Mean Corpuscular Hemoglobin Concent 35g/dL (31-37) Red Cell Distribution Width 15.1% (11.5-14.5) Platelet Count 76x10^3/uL (140-400) Assessment/Plan Assessment/Plan GI bleed, no acute findings on CT or bleeding scan Hgb improved, one episode on dark blood this AM cirrhosis, hep c, HTN, thrombocytopenia, INR 1.6 appears to have stabilized, close observation, transfusions as needed, if rebleed -consider IR consult for embolization TAARH ISRAEL MD 12/14/16 1621: CONSULT Allergies Allergies: Coded Allergies: No Known Drug Allergies (Unverified , 04/21/14) Assessment/Plan Assessment/Plan Reviewed, above studies noted, agree with recommendation VERA MILLER APRN Dec 14, 2016 11:52 TARAH ISRAEL MD Dec 14, 2016 16:21
[2016-12-14] MEDS: ZOLPIDEM 5 MG TABLET. PO SCH (20:44)
[2016-12-14] MEDS: TAMSULOSIN 0.4 MG CAP.ER.24H. PO SCH (20:44)
[2016-12-15 03:00] VITALS: BP 99/41
[2016-12-15 06:20] LABS: HEMATOCRIT 21.5 % (39.0-53.0); HEMOGLOBIN 7.2 g/dL (13.0-17.5); RED BLOOD COUNT 2.45 x10^6/uL (4.30-5.70); RED CELL DISTRIBUTION WIDTH 15.3 % (11.5-14.5); WHITE BLOOD COUNT 8.4 x10^3/uL (4.0-11.0)
[2016-12-15 07:25] LABS: ALBUMIN 1.9 g/dL (3.4-5.0); ALBUMIN/GLOBULIN RATIO 0.6 (1.0-1.7); CREATININE 1.1 mg/dL (0.7-1.3); GFR 66.6; POTASSIUM 3.6 mmol/L (3.5-5.1); TOTAL BILIRUBIN 2.6 mg/dL (0.2-1.0); TOTAL PROTEIN 5.1 g/dL (6.4-8.2)
[2016-12-15 07:29] VITALS: BP 112/48
[2016-12-15] MEDS: PREDNISONE 20 MG TABLET PO SCH (07:51)
[2016-12-15] MEDS: MULTIVITAMIN with MINERAL TABLET. PO SCH (07:51)
[2016-12-15] MEDS: FOLIC ACID 1 MG TABLET PO SCH (07:52)
[2016-12-15] MEDS: HYDROXYCHLOROQUINE 200 MG TABLET PO SCH ×2 (07:52→20:30)
[2016-12-15] MEDS: PANTOPRAZOLE 40 MG TABLET. PO SCH (07:52)
[2016-12-15] MEDS: THIAMINE 100 MG TABLET. PO SCH ×2 (07:52→20:30)
--- NOTE | 2016-12-15 10:06 | PDOC ---
PROGRESS NOTES Subjective Subjective feeling well, no further major bleeding Objective Objective Vital Signs Date Time Temp Pulse Resp B/P Pulse Ox O2 Delivery O2 Flow Rate FiO2 12/15/16 07:29 98.2 77 18 112/48 92 Room Air 98.2 Intake and Output 12/15/16 07:00 Intake Total 1440.51 ml Output Total 900 ml Balance 540.51 ml Intake Oral 890 ml IV Total 550.51 ml Output Urine Total 900 ml # Voids 2 # Bowel Movements 1 Physical Exam Abdomen: Soft, No tenderness Extremities: No clubbing, No cyanosis General: Alert, Oriented X3 Psych/Mental Status: Mental status NL Assessment Assessment Problems Medical Problems: (1) GI bleed Status: Acute (2) Lactic acidosis Status: Acute (3) Liver function abnormality Status: Acute Plan Plan of Care Improving, no surgical recs Comment Review of Relevant I have reviewed the following items claire (where applicable) has been applied. Labs Laboratory Tests Test 12/13/16 14:27 12/13/16 14:44 12/13/16 15:31 12/13/16 18:40 White Blood Count 4.4x10^3/uL (4.0-11.0) Red Blood Count 1.90x10^6/uL (4.30-5.70) Hemoglobin 5.4g/dL (13.0-17.5) Hematocrit 16.6% (39.0-53.0) Mean Corpuscular Volume 88fL (79-100) Mean Corpuscular Hemoglobin 28pg (25-35) Mean Corpuscular Hemoglobin Concent 32g/dL (31-37) Red Cell Distribution Width 17.1% (11.5-14.5) Platelet Count 89x10^3/uL (140-400) Neutrophils (%) (Auto) 58% (31-73) Lymphocytes (%) (Auto) 19% (24-48) Monocytes (%) (Auto) 19% (0-9) Eosinophils (%) (Auto) 2% (0-3) Basophils (%) (Auto) 3% (0-3) Neutrophils # (Auto) 2.5x10^3uL (1.8-7.7) Lymphocytes # (Auto) 0.8x10^3/uL (1.0-4.8) Monocytes # (Auto) 0.8x10^3/uL (0.0-1.1) Eosinophils # (Auto) 0.1x10^3/uL (0.0-0.7) Basophils # (Auto) 0.1x10^3/uL (0.0-0.2) Prothrombin Time 19.0SEC (11.7-14.0) Prothromb Time International Ratio 1.7 (0.8-1.1) Activated Partial Thromboplast Time 26SEC (24-38) Sodium Level 140mmol/L (136-145) Potassium Level 4.2mmol/L (3.5-5.1) Chloride Level 107mmol/L (98-107) Carbon Dioxide Level 21mmol/L (21-32) Anion Gap 12 (6-14) Blood Urea Nitrogen 46mg/dL (8-26) Creatinine 1.5mg/dL (0.7-1.3) Estimated GFR (Cockcroft-Gault) 46.5 BUN/Creatinine Ratio 31 (6-20) Glucose Level 101mg/dL (70-99) Lactic Acid Level 2.5mmol/L (0.4-2.0) Calcium Level 9.0mg/dL (8.5-10.1) Total Bilirubin 2.6mg/dL (0.2-1.0) Aspartate Amino Transf (AST/SGOT) 88U/L (15-37) Alanine Aminotransferase (ALT/SGPT) 35U/L (16-63) Alkaline Phosphatase 176U/L (46-116) Troponin I Quantitative < 0.017ng/mL (0.000-0.055) Total Protein 6.0g/dL (6.4-8.2) Albumin 1.9g/dL (3.4-5.0) Albumin/Globulin Ratio 0.5 (1.0-1.7) Lipase 233U/L (73-393) Urine Collection Type Unknown Urine Color Yellow Urine Clarity Clear Urine pH 6.5 Urine Specific [place] 1.020 Urine Protein Negativemg/dL (NEG-TRACE) Urine Glucose (UA) Negativemg/dL (NEG) Urine Ketones (Stick) Negativemg/dL (NEG) Urine Blood Negative (NEG) Urine Nitrite Negative (NEG) Urine Bilirubin Negative (NEG) Urine Urobilinogen Dipstick 0.2mg/dL (0.2 mg/dL) Urine Leukocyte Esterase Negative (NEG) Urine RBC Occ/HPF (0-2) Urine WBC Occ/HPF (0-4) Urine Squamous Epithelial Cells Few/LPF Urine Transitional Epithelial Cells Occ/LPF Urine Bacteria Few/HPF (0-FEW) Urine Mucus Slight/LPF Urine Opiates Screen Neg (NEG) Urine Methadone Screen Neg (NEG) Urine Barbiturates Neg (NEG) Urine Phencyclidine Screen Neg (NEG) Urine Amphetamine/Methamphetamine Neg (NEG) Urine Benzodiazepines Screen Neg (NEG) Urine Cocaine Screen Neg (NEG) Urine Cannabinoids Screen Neg (NEG) Urine Ethyl Alcohol Neg (NEG) Stool Occult Blood Positive (NEG) Nasal Screen MRSA (PCR) Negative (Negative) Test 12/13/16 23:43 12/14/16 09:08 12/14/16 10:05 12/14/16 17:40 White Blood Count 5.4x10^3/uL (4.0-11.0) 5.6x10^3/uL (4.0-11.0) Red Blood Count 2.88x10^6/uL (4.30-5.70) 2.58x10^6/uL (4.30-5.70) Hemoglobin 8.4g/dL (13.0-17.5) 7.6g/dL (13.0-17.5) 8.0g/dL (13.0-17.5) Hematocrit 25.0% (39.0-53.0) 21.9% (39.0-53.0) Mean Corpuscular Volume 87fL (79-100) 85fL (79-100) Mean Corpuscular Hemoglobin 29pg (25-35) 30pg (25-35) Mean Corpuscular Hemoglobin Concent 34g/dL (31-37) 35g/dL (31-37) Red Cell Distribution Width 14.8% (11.5-14.5) 15.1% (11.5-14.5) Platelet Count 80x10^3/uL (140-400) 76x10^3/uL (140-400) Prothrombin Time 17.9SEC (11.7-14.0) Prothromb Time International Ratio 1.6 (0.8-1.1) Sodium Level 141mmol/L (136-145) Potassium Level 4.4mmol/L (3.5-5.1) Chloride Level 110mmol/L (98-107) Carbon Dioxide Level 18mmol/L (21-32) Anion Gap 13 (6-14) Blood Urea Nitrogen 45mg/dL (8-26) Creatinine 1.2mg/dL (0.7-1.3) Estimated GFR (Cockcroft-Gault) 60.2 Glucose Level 95mg/dL (70-99) Calcium Level 7.9mg/dL (8.5-10.1) Test 12/15/16 05:30 White Blood Count 8.4x10^3/uL (4.0-11.0) Red Blood Count 2.45x10^6/uL (4.30-5.70) Hemoglobin 7.2g/dL (13.0-17.5) Hematocrit 21.5% (39.0-53.0) Mean Corpuscular Volume 88fL (79-100) Mean Corpuscular Hemoglobin 29pg (25-35) Mean Corpuscular Hemoglobin Concent 33g/dL (31-37) Red Cell Distribution Width 15.3% (11.5-14.5) Platelet Count 99x10^3/uL (140-400) Sodium Level 139mmol/L (136-145) Potassium Level 3.6mmol/L (3.5-5.1) Chloride Level 108mmol/L (98-107) Carbon Dioxide Level 20mmol/L (21-32) Anion Gap 11 (6-14) Blood Urea Nitrogen 31mg/dL (8-26) Creatinine 1.1mg/dL (0.7-1.3) Estimated GFR (Cockcroft-Gault) 66.6 BUN/Creatinine Ratio 28 (6-20) Glucose Level 121mg/dL (70-99) Calcium Level 8.0mg/dL (8.5-10.1) Total Bilirubin 2.6mg/dL (0.2-1.0) Aspartate Amino Transf (AST/SGOT) 66U/L (15-37) Alanine Aminotransferase (ALT/SGPT) 30U/L (16-63) Alkaline Phosphatase 141U/L (46-116) Total Protein 5.1g/dL (6.4-8.2) Albumin 1.9g/dL (3.4-5.0) Albumin/Globulin Ratio 0.6 (1.0-1.7) Laboratory Tests Test 12/14/16 17:40 12/15/16 05:30 Hemoglobin 8.0g/dL (13.0-17.5) 7.2g/dL (13.0-17.5) White Blood Count 8.4x10^3/uL (4.0-11.0) Red Blood Count 2.45x10^6/uL (4.30-5.70) Hematocrit 21.5% (39.0-53.0) Mean Corpuscular Volume 88fL (79-100) Mean Corpuscular Hemoglobin 29pg (25-35) Mean Corpuscular Hemoglobin Concent 33g/dL (31-37) Red Cell Distribution Width 15.3% (11.5-14.5) Platelet Count 99x10^3/uL (140-400) Sodium Level 139mmol/L (136-145) Potassium Level 3.6mmol/L (3.5-5.1) Chloride Level 108mmol/L (98-107) Carbon Dioxide Level 20mmol/L (21-32) Anion Gap 11 (6-14) Blood Urea Nitrogen 31mg/dL (8-26) Creatinine 1.1mg/dL (0.7-1.3) Estimated GFR (Cockcroft-Gault) 66.6 BUN/Creatinine Ratio 28 (6-20) Glucose Level 121mg/dL (70-99) Calcium Level 8.0mg/dL (8.5-10.1) Total Bilirubin 2.6mg/dL (0.2-1.0) Aspartate Amino Transf (AST/SGOT) 66U/L (15-37) Alanine Aminotransferase (ALT/SGPT) 30U/L (16-63) Alkaline Phosphatase 141U/L (46-116) Total Protein 5.1g/dL (6.4-8.2) Albumin 1.9g/dL (3.4-5.0) Albumin/Globulin Ratio 0.6 (1.0-1.7) Medications Current Medications Iohexol (Omnipaque 300 Mg/ml) 75 ml 1X ONCE IV Last administered on 12/13/16t 15:15; Start 12/13/16 at 14:45; Stop 12/13/16 at 14:46; Status DC Info 1 each 1 each PRN DAILY PRN MC SEE COMMENTS; Start 12/13/16 at 14:45; Stop 12/15/16 at 14:44 Ceftriaxone Sodium 50 ml @ 100 mls/hr 1X ONCE IV ; Start 12/13/16 at 15:45; Stop 12/13/16 at 16:14; Status DC Pantoprazole Sodium/Sodium Chloride (Protonix Iv/Iv Sodium Chloride 0.9% 100ml) 100 ml @ 10 mls/hr 1X ONCE IV Last administered on 12/13/16 16:48; Start at 16:00; Stop 12/14/16 at 01:59; Status DC Pantoprazole Sodium 80 mg 80 mg 1X ONCE IVP Last administered on 12/13/16 16: 47; Start 12/13/16 at 15:45; Stop 12/13/16 at 15:50; Status DC Octreotide Acetate/Sodium Chloride (Sandostatin/Iv Sodium Chloride 0.9% 100ml) 101 ml @ 0 mls/hr CONT PRN IV SEE I/O RECORD Last administered on 12/13/16 19: 02; Start 12/13/16 at 16:00; Stop 12/13/16 at 17:05; Status DC Octreotide Acetate 100 mcg 100 mcg 1X ONCE IV Last administered on 12/13/16 18:06; Start 12/13/16 at 15:45; Stop 12/14/16 at 10:35; Status DC Sodium Chloride 1,000 ml @ 1,000 mls/hr 1X ONCE IV Last administered on 16:46; Start 12/13/16 at 16:00; Stop 12/13/16 at 16:59; Status DC Phytonadione 10 mg/Sodium Chloride 51 ml @ 102 mls/hr 1X ONCE IV Last administered on 12/13/16 18:51; Start 12/13/16 at 16:45; Stop 12/13/16 at 17:14 ; Status DC Sodium Chloride 1,000 ml @ 1,000 mls/hr 1X ONCE IV ; Start 12/13/16 at 16:45; Stop 12/13/16 at 17:44; Status DC Sodium Chloride 1,000 ml @ 150 mls/hr CONT PRN IV SEE I/O RECORD Last administered on 12/14/16 05:37; Start 12/13/16 at 16:45; Stop 12/14/16 at 10:54 ; Status DC Multivitamins/ Minerals/Thiamine HCl/Folic Acid/ Sodium Chloride (Infuvite Adult / Iv Sodium Chloride 0.9% 1000ml Bag) 1,011.2 ml @ 100 mls/ hr DAILY IV Last administered on 12/14/16 09:38; Start 12/13/16 at 17:00; Stop 12/14/16 at 20:57 ; Status DC Multivitamins/ Calcium (Thera M Plus) 1 tab DAILY PO Last administered on 07:51; Start 12/14/16 at 09:00 Lorazepam (Ativan) 2 mg PRN Q1HR PRN IV For CIWA 8-14 Last administered on 12/14 02:09; Start 12/13/16 at 16:45 Lorazepam (Ativan) 4 mg PRN Q1HR PRN IV For CIWA 15 or greater; Start 12/13/16 at 16:45 Prednisone (Prednisone) 30 mg 1X ONCE PO ; Start 12/13/16 at 17:00; Stop at 17:28; Status DC Folic Acid (Folic Acid) 1 mg DAILY PO Last administered on 12/15/16 07:52; Start 12/15/16 at 09:00 Hydroxychloroquine Sulfate (Plaquenil) 200 mg BID PO ; Start 12/13/16 at 21:00; Status UNV Hydroxychloroquine Sulfate (Plaquenil) 200 mg BID PO Last administered on 07:52; Start 12/13/16 at 21:00 Prednisone (Prednisone) 5 mg DAILY PO ; Start 12/14/16 at 09:00; Stop 12/14/16 at 09:00; Status DC Tamsulosin HCl (Flomax) 0.4 mg QHS PO Last administered on 12/14/16 20:44; Start 12/13/16 at 21:00 Thiamine HCl (Vitamin B-1) 100 mg BID PO Last administered on 12/15/16 07:52; Start 12/13/16 at 21:00 Tramadol HCl (Ultram) 50 mg PRN Q6HRS PO ; Start 12/13/16 at 17:00; Stop at 17:21; Status DC Zolpidem Tartrate (Ambien) 5 mg QHS PO Last administered on 12/14/16 20:44; Start 12/13/16 at 21:00 Prednisone (Prednisone) 20 mg DAILY PO Last administered on 12/15/16 07:51; Start 12/14/16 at 09:00 Hydrocortisone Sodium Succinate (Solu-Cortef) 100 mg 1X ONCE IV ; Start at 17:00; Stop 12/13/16 at 17:09; Status DC Tramadol HCl 50 mg 50 mg PRN Q6HRS PRN PO MODERATE PAIN Last administered on 20:43; Start 12/13/16 at 17:21 Octreotide Acetate 500 mcg/ Sodium Chloride 101 ml @ 0 mls/hr CONT PRN IV SEE I /O RECORD Last administered on 12/14/16 05:33; Start 12/13/16 at 19:15; Stop at 10:35; Status DC Pantoprazole Sodium/Sodium Chloride (Protonix Iv/Iv Sodium Chloride 0.9% 100ml) 100 ml @ 10 mls/hr Q10H IV Last administered on 12/14/16 03:52; Start at 04:00; Stop 12/14/16 at 10:35; Status DC Pantoprazole Sodium (Protonix) 40 mg DAILYAC PO Last administered on 12/15/16 07:52; Start 12/15/16 at 07:30 Active Scripts Active Vitamin B-1 (Thiamine Hcl) 100 Mg Tablet 100 Mg PO BID Folic Acid 1 Mg Tablet 1 Mg PO DAILY Flomax (Tamsulosin Hcl) 0.4 Mg Cap.er.24h 0.4 Mg PO QHS Reported Omeprazole 20 Mg Capsule.dr 1 Cap PO DAILY Melatonin 5 Mg Tablet 5 Mg PO HS Tramadol Hcl 50 Mg Tablet 1 Tab PO PRN Q6HRS Alendronate Sodium 70 Mg Tablet 1 Tab PO WEEKLY Ambien (Zolpidem Tartrate) 5 Mg Tablet 1 Tab PO QHS Atorvastatin Calcium 10 Mg Tablet 1 Tab PO HS Prednisone 5 Mg Tablet 5 Mg PO DAILY Plaquenil (Hydroxychloroquine Sulfate) 200 Mg Tablet 200 Mg PO BID Plaquenil (Hydroxychloroquine Sulfate) 200 Mg Tablet 200 Mg PO BID Cimzia (Certolizumab Pegol) 400 Mg/2 Ml Syringekit 400 Mg SQ Vitals/I & O Vital Sign - Last 24 Hours 12/14/16 12/14/16 12/14/16 12/14/16 11:00 15:00 16:00 16:30 Temp 97.9 97.8 99.3 97.9 97.8 99.3 Pulse 84 86 84 Resp B/P 116/60 128/59 106/46 Pulse Ox 97 98 97 O2 Delivery Room Air Room Air Room Air Room Air 12/14/16 12/14/16 12/14/16 12/14/16 20:00 20:43 20:58 21:43 Temp 97.7 97.7 Pulse 77 Resp 20 B/P 138/47 O2 Delivery Room Air Room Air Room Air 12/14/16 12/15/16 12/15/16 23:00 03:00 07:29 Temp 98.5 98.1 98.2 98.5 98.1 98.2 Pulse 79 77 77 Resp B/P 126/53 99/41 112/48 Pulse Ox 98 94 92 O2 Delivery Room Air Intake and Output 12/14/16 12/14/16 12/15/16 15:00 23:00 07:00 Intake Total 1200.51 ml 240 ml Output Total 350 ml 550 ml Balance 850.51 ml -310 ml TARAH ISRAEL MD Dec 15, 2016 10:06
--- NOTE | 2016-12-15 10:51 | PDOC ---
G I PROGRESS NOTE Subjective Denies any pain or bleeding (since old blood yesterday). Physical Exam Lungs clear. RRR Abdomen soft, not tender nor distended. Not particularly hyperreflexic; no asterixis. Review of Relevant I have reviewed the following items claire (where applicable) has been applied. Labs Laboratory Tests Test 12/13/16 14:27 12/13/16 14:44 12/13/16 15:31 12/13/16 18:40 White Blood Count 4.4x10^3/uL (4.0-11.0) Red Blood Count 1.90x10^6/uL (4.30-5.70) Hemoglobin 5.4g/dL (13.0-17.5) Hematocrit 16.6% (39.0-53.0) Mean Corpuscular Volume 88fL (79-100) Mean Corpuscular Hemoglobin 28pg (25-35) Mean Corpuscular Hemoglobin Concent 32g/dL (31-37) Red Cell Distribution Width 17.1% (11.5-14.5) Platelet Count 89x10^3/uL (140-400) Neutrophils (%) (Auto) 58% (31-73) Lymphocytes (%) (Auto) 19% (24-48) Monocytes (%) (Auto) 19% (0-9) Eosinophils (%) (Auto) 2% (0-3) Basophils (%) (Auto) 3% (0-3) Neutrophils # (Auto) 2.5x10^3uL (1.8-7.7) Lymphocytes # (Auto) 0.8x10^3/uL (1.0-4.8) Monocytes # (Auto) 0.8x10^3/uL (0.0-1.1) Eosinophils # (Auto) 0.1x10^3/uL (0.0-0.7) Basophils # (Auto) 0.1x10^3/uL (0.0-0.2) Prothrombin Time 19.0SEC (11.7-14.0) Prothromb Time International Ratio 1.7 (0.8-1.1) Activated Partial Thromboplast Time 26SEC (24-38) Sodium Level 140mmol/L (136-145) Potassium Level 4.2mmol/L (3.5-5.1) Chloride Level 107mmol/L (98-107) Carbon Dioxide Level 21mmol/L (21-32) Anion Gap 12 (6-14) Blood Urea Nitrogen 46mg/dL (8-26) Creatinine 1.5mg/dL (0.7-1.3) Estimated GFR (Cockcroft-Gault) 46.5 BUN/Creatinine Ratio 31 (6-20) Glucose Level 101mg/dL (70-99) Lactic Acid Level 2.5mmol/L (0.4-2.0) Calcium Level 9.0mg/dL (8.5-10.1) Total Bilirubin 2.6mg/dL (0.2-1.0) Aspartate Amino Transf (AST/SGOT) 88U/L (15-37) Alanine Aminotransferase (ALT/SGPT) 35U/L (16-63) Alkaline Phosphatase 176U/L (46-116) Troponin I Quantitative < 0.017ng/mL (0.000-0.055) Total Protein 6.0g/dL (6.4-8.2) Albumin 1.9g/dL (3.4-5.0) Albumin/Globulin Ratio 0.5 (1.0-1.7) Lipase 233U/L (73-393) Urine Collection Type Unknown Urine Color Yellow Urine Clarity Clear Urine pH 6.5 Urine Specific [place] 1.020 Urine Protein Negativemg/dL (NEG-TRACE) Urine Glucose (UA) Negativemg/dL (NEG) Urine Ketones (Stick) Negativemg/dL (NEG) Urine Blood Negative (NEG) Urine Nitrite Negative (NEG) Urine Bilirubin Negative (NEG) Urine Urobilinogen Dipstick 0.2mg/dL (0.2 mg/dL) Urine Leukocyte Esterase Negative (NEG) Urine RBC Occ/HPF (0-2) Urine WBC Occ/HPF (0-4) Urine Squamous Epithelial Cells Few/LPF Urine Transitional Epithelial Cells Occ/LPF Urine Bacteria Few/HPF (0-FEW) Urine Mucus Slight/LPF Urine Opiates Screen Neg (NEG) Urine Methadone Screen Neg (NEG) Urine Barbiturates Neg (NEG) Urine Phencyclidine Screen Neg (NEG) Urine Amphetamine/Methamphetamine Neg (NEG) Urine Benzodiazepines Screen Neg (NEG) Urine Cocaine Screen Neg (NEG) Urine Cannabinoids Screen Neg (NEG) Urine Ethyl Alcohol Neg (NEG) Stool Occult Blood Positive (NEG) Nasal Screen MRSA (PCR) Negative (Negative) Test 12/13/16 23:43 12/14/16 09:08 12/14/16 10:05 12/14/16 17:40 White Blood Count 5.4x10^3/uL (4.0-11.0) 5.6x10^3/uL (4.0-11.0) Red Blood Count 2.88x10^6/uL (4.30-5.70) 2.58x10^6/uL (4.30-5.70) Hemoglobin 8.4g/dL (13.0-17.5) 7.6g/dL (13.0-17.5) 8.0g/dL (13.0-17.5) Hematocrit 25.0% (39.0-53.0) 21.9% (39.0-53.0) Mean Corpuscular Volume 87fL (79-100) 85fL (79-100) Mean Corpuscular Hemoglobin 29pg (25-35) 30pg (25-35) Mean Corpuscular Hemoglobin Concent 34g/dL (31-37) 35g/dL (31-37) Red Cell Distribution Width 14.8% (11.5-14.5) 15.1% (11.5-14.5) Platelet Count 80x10^3/uL (140-400) 76x10^3/uL (140-400) Prothrombin Time 17.9SEC (11.7-14.0) Prothromb Time International Ratio 1.6 (0.8-1.1) Sodium Level 141mmol/L (136-145) Potassium Level 4.4mmol/L (3.5-5.1) Chloride Level 110mmol/L (98-107) Carbon Dioxide Level 18mmol/L (21-32) Anion Gap 13 (6-14) Blood Urea Nitrogen 45mg/dL (8-26) Creatinine 1.2mg/dL (0.7-1.3) Estimated GFR (Cockcroft-Gault) 60.2 Glucose Level 95mg/dL (70-99) Calcium Level 7.9mg/dL (8.5-10.1) Test 12/15/16 05:30 White Blood Count 8.4x10^3/uL (4.0-11.0) Red Blood Count 2.45x10^6/uL (4.30-5.70) Hemoglobin 7.2g/dL (13.0-17.5) Hematocrit 21.5% (39.0-53.0) Mean Corpuscular Volume 88fL (79-100) Mean Corpuscular Hemoglobin 29pg (25-35) Mean Corpuscular Hemoglobin Concent 33g/dL (31-37) Red Cell Distribution Width 15.3% (11.5-14.5) Platelet Count 99x10^3/uL (140-400) Sodium Level 139mmol/L (136-145) Potassium Level 3.6mmol/L (3.5-5.1) Chloride Level 108mmol/L (98-107) Carbon Dioxide Level 20mmol/L (21-32) Anion Gap 11 (6-14) Blood Urea Nitrogen 31mg/dL (8-26) Creatinine 1.1mg/dL (0.7-1.3) Estimated GFR (Cockcroft-Gault) 66.6 BUN/Creatinine Ratio 28 (6-20) Glucose Level 121mg/dL (70-99) Calcium Level 8.0mg/dL (8.5-10.1) Total Bilirubin 2.6mg/dL (0.2-1.0) Aspartate Amino Transf (AST/SGOT) 66U/L (15-37) Alanine Aminotransferase (ALT/SGPT) 30U/L (16-63) Alkaline Phosphatase 141U/L (46-116) Total Protein 5.1g/dL (6.4-8.2) Albumin 1.9g/dL (3.4-5.0) Albumin/Globulin Ratio 0.6 (1.0-1.7) Laboratory Tests Test 12/14/16 17:40 12/15/16 05:30 Hemoglobin 8.0g/dL (13.0-17.5) 7.2g/dL (13.0-17.5) White Blood Count 8.4x10^3/uL (4.0-11.0) Red Blood Count 2.45x10^6/uL (4.30-5.70) Hematocrit 21.5% (39.0-53.0) Mean Corpuscular Volume 88fL (79-100) Mean Corpuscular Hemoglobin 29pg (25-35) Mean Corpuscular Hemoglobin Concent 33g/dL (31-37) Red Cell Distribution Width 15.3% (11.5-14.5) Platelet Count 99x10^3/uL (140-400) Sodium Level 139mmol/L (136-145) Potassium Level 3.6mmol/L (3.5-5.1) Chloride Level 108mmol/L (98-107) Carbon Dioxide Level 20mmol/L (21-32) Anion Gap 11 (6-14) Blood Urea Nitrogen 31mg/dL (8-26) Creatinine 1.1mg/dL (0.7-1.3) Estimated GFR (Cockcroft-Gault) 66.6 BUN/Creatinine Ratio 28 (6-20) Glucose Level 121mg/dL (70-99) Calcium Level 8.0mg/dL (8.5-10.1) Total Bilirubin 2.6mg/dL (0.2-1.0) Aspartate Amino Transf (AST/SGOT) 66U/L (15-37) Alanine Aminotransferase (ALT/SGPT) 30U/L (16-63) Alkaline Phosphatase 141U/L (46-116) Total Protein 5.1g/dL (6.4-8.2) Albumin 1.9g/dL (3.4-5.0) Albumin/Globulin Ratio 0.6 (1.0-1.7) Medications Current Medications Iohexol (Omnipaque 300 Mg/ml) 75 ml 1X ONCE IV Last administered on 12/13/16 15:15; Start 12/13/16 at 14:45; Stop 12/13/16 at 14:46; Status DC Info 1 each 1 each PRN DAILY PRN MC SEE COMMENTS; Start 12/13/16 at 14:45; Stop 12/15/16 at 14:44 Ceftriaxone Sodium 50 ml @ 100 mls/hr 1X ONCE IV ; Start 12/13/16 at 15:45; Stop 12/13/16 at 16:14; Status DC Pantoprazole Sodium/Sodium Chloride (Protonix Iv/Iv Sodium Chloride 0.9% 100ml) 100 ml @ 10 mls/hr 1X ONCE IV Last administered on 12/13/16 16:48; Start at 16:00; Stop 12/14/16 at 01:59; Status DC Pantoprazole Sodium 80 mg 80 mg 1X ONCE IVP Last administered on 12/13/16 16: 47; Start 12/13/16 at 15:45; Stop 12/13/16 at 15:50; Status DC Octreotide Acetate/Sodium Chloride (Sandostatin/Iv Sodium Chloride 0.9% 100ml) 101 ml @ 0 mls/hr CONT PRN IV SEE I/O RECORD Last administered on 12/13/16 19: 02; Start 12/13/16 at 16:00; Stop 12/13/16 at 17:05; Status DC Octreotide Acetate 100 mcg 100 mcg 1X ONCE IV Last administered on 12/13/16 18:06; Start 12/13/16 at 15:45; Stop 12/14/16 at 10:35; Status DC Sodium Chloride 1,000 ml @ 1,000 mls/hr 1X ONCE IV Last administered on 16:46; Start 12/13/16 at 16:00; Stop 12/13/16 at 16:59; Status DC Phytonadione 10 mg/Sodium Chloride 51 ml @ 102 mls/hr 1X ONCE IV Last administered on 12/13/16 18:51; Start 12/13/16 at 16:45; Stop 12/13/16 at 17:14 ; Status DC Sodium Chloride 1,000 ml @ 1,000 mls/hr 1X ONCE IV ; Start 12/13/16 at 16:45; Stop 12/13/16 at 17:44; Status DC Sodium Chloride 1,000 ml @ 150 mls/hr CONT PRN IV SEE I/O RECORD Last administered on 12/14/16 05:37; Start 12/13/16 at 16:45; Stop 12/14/16 at 10:54 ; Status DC Multivitamins/ Minerals/Thiamine HCl/Folic Acid/ Sodium Chloride (Infuvite Adult / Iv Sodium Chloride 0.9% 1000ml Bag) 1,011.2 ml @ 100 mls/ hr DAILY IV Last administered on 12/14/16 09:38; Start 12/13/16 at 17:00; Stop 12/14/16 at 20:57 ; Status DC Multivitamins/ Calcium (Thera M Plus) 1 tab DAILY PO Last administered on 07:51; Start 12/14/16 at 09:00 Lorazepam (Ativan) 2 mg PRN Q1HR PRN IV For CIWA 8-14 Last administered on 12/14 02:09; Start 12/13/16 at 16:45 Lorazepam (Ativan) 4 mg PRN Q1HR PRN IV For CIWA 15 or greater; Start 12/13/16 at 16:45 Prednisone (Prednisone) 30 mg 1X ONCE PO ; Start 12/13/16 at 17:00; Stop at 17:28; Status DC Folic Acid (Folic Acid) 1 mg DAILY PO Last administered on 12/15/16 07:52; Start 12/15/16 at 09:00 Hydroxychloroquine Sulfate (Plaquenil) 200 mg BID PO ; Start 12/13/16 at 21:00; Status UNV Hydroxychloroquine Sulfate (Plaquenil) 200 mg BID PO Last administered on 07:52; Start 12/13/16 at 21:00 Prednisone (Prednisone) 5 mg DAILY PO ; Start 12/14/16 at 09:00; Stop 12/14/16 at 09:00; Status DC Tamsulosin HCl (Flomax) 0.4 mg QHS PO Last administered on 12/14/16 20:44; Start 12/13/16 at 21:00 Thiamine HCl (Vitamin B-1) 100 mg BID PO Last administered on 12/15/16 07:52; Start 12/13/16 at 21:00 Tramadol HCl (Ultram) 50 mg PRN Q6HRS PO ; Start 12/13/16 at 17:00; Stop at 17:21; Status DC Zolpidem Tartrate (Ambien) 5 mg QHS PO Last administered on 12/14/16 20:44; Start 12/13/16 at 21:00 Prednisone (Prednisone) 20 mg DAILY PO Last administered on 12/15/16 07:51; Start 12/14/16 at 09:00 Hydrocortisone Sodium Succinate (Solu-Cortef) 100 mg 1X ONCE IV ; Start at 17:00; Stop 12/13/16 at 17:09; Status DC Tramadol HCl 50 mg 50 mg PRN Q6HRS PRN PO MODERATE PAIN Last administered on 20:43; Start 12/13/16 at 17:21 Octreotide Acetate 500 mcg/ Sodium Chloride 101 ml @ 0 mls/hr CONT PRN IV SEE I /O RECORD Last administered on 12/14/16 05:33; Start 12/13/16 at 19:15; Stop at 10:35; Status DC Pantoprazole Sodium/Sodium Chloride (Protonix Iv/Iv Sodium Chloride 0.9% 100ml) 100 ml @ 10 mls/hr Q10H IV Last administered on 12/14/16 03:52; Start at 04:00; Stop 12/14/16 at 10:35; Status DC Pantoprazole Sodium (Protonix) 40 mg DAILYAC PO Last administered on 12/15/16 07:52; Start 12/15/16 at 07:30 Active Scripts Active Vitamin B-1 (Thiamine Hcl) 100 Mg Tablet 100 Mg PO BID Folic Acid 1 Mg Tablet 1 Mg PO DAILY Flomax (Tamsulosin Hcl) 0.4 Mg Cap.er.24h 0.4 Mg PO QHS Reported Omeprazole 20 Mg Capsule.dr 1 Cap PO DAILY Melatonin 5 Mg Tablet 5 Mg PO HS Tramadol Hcl 50 Mg Tablet 1 Tab PO PRN Q6HRS Alendronate Sodium 70 Mg Tablet 1 Tab PO WEEKLY Ambien (Zolpidem Tartrate) 5 Mg Tablet 1 Tab PO QHS Atorvastatin Calcium 10 Mg Tablet 1 Tab PO HS Prednisone 5 Mg Tablet 5 Mg PO DAILY Plaquenil (Hydroxychloroquine Sulfate) 200 Mg Tablet 200 Mg PO BID Plaquenil (Hydroxychloroquine Sulfate) 200 Mg Tablet 200 Mg PO BID Cimzia (Certolizumab Pegol) 400 Mg/2 Ml Syringekit 400 Mg SQ Vitals/I & O Vital Sign - Last 24 Hours 12/14/16 12/14/16 12/14/16 12/14/16 11:00 15:00 16:00 16:30 Temp 97.9 97.8 99.3 97.9 97.8 99.3 Pulse 84 86 84 Resp 18 B/P 116/60 128/59 106/46 Pulse Ox 97 98 97 O2 Delivery Room Air Room Air Room Air Room Air 12/14/16 12/14/16 12/14/16 2/21/17 20:00 20:43 20:58 21:43 Temp 97.7 97.7 Pulse 77 Resp 20 B/P 138/47 O2 Delivery Room Air Room Air Room Air 12/14/16 12/15/16 12/15/16 12/15/16 23:00 03:00 07:29 08:00 Temp 98.5 98.1 98.2 98.5 98.1 98.2 Pulse 79 77 77 Resp 18 B/P 126/53 99/41 112/48 Pulse Ox 98 94 92 O2 Delivery Room Air Room Air Intake and Output 12/14/16 12/14/16 12/15/16 15:00 23:00 07:00 Intake Total 1200.51 ml 240 ml Output Total 350 ml 550 ml Balance 850.51 ml -310 ml Problem List Problems Medical Problems: (1) GI bleed Status: Acute (2) Lactic acidosis Status: Acute (3) Liver function abnormality Status: Acute Assessment Probable diverticular bleed; appears clinically to have stopped. Advanced alcoholic liver disease, likely cirrhotic. Alcoholism with likely some element of withdrawal. Plan of Care: Continue current Tx, Mgmt Plan of Care Note Will try advancing diet. MATTHEW CHIN MD Dec 15, 2016 10:50
[2016-12-15 10:54] VITALS: BP 83/47
--- NOTE | 2016-12-15 11:42 | PDOC ---
PROGRESS NOTES Chief Complaint Chief Complaint UGIB sec to thrombocytopenia in an alcoholic Liver cirrhosis [place], resolved HYPOVOLEMIA, resolved ALCOHOLISM LIVER FAILURE CKD TAGE 3 MOd pcm HTN, HLD, COPD (prior respiratory failure), RA, "hepatitis" (teenager), osteoporosis, alcoholism, BCC (excised), cholecystectomy History of Present Illness History of Present Illness Sister at bedside Pt unfortunately drank again once he reached home- was just dcd by yours truly 3 days ago- back bec of bloody stools PLATELETS 99 (HE HOVERS IN THE 70S-80S) hGB 7.2 Looks pale Pt already has pamphlets literature on AA programs Bleeding scan neg CTa bd/pelvis and CXR doen at ER all reviewed and copy of results provided to pt PLAN: CBC again suzanne Heavy counselling again on etoh consumption, 30 mins in counselling Vitals Vitals Vital Signs Date Time Temp Pulse Resp B/P Pulse Ox O2 Delivery O2 Flow Rate FiO2 12/15/16 10:54 98.3 73 18 83/47 91 Room Air 98.3 Physical Exam General: Alert, Oriented X3 Heart: Regular rate, Normal S1, Normal S2, No murmurs Lungs: Clear, Other Abdomen: Soft, No tenderness Extremities: No clubbing, No cyanosis Skin: No breakdown, No significant lesion Labs LABS Laboratory Tests Test 12/14/16 17:40 12/15/16 05:30 Hemoglobin 8.0g/dL (13.0-17.5) 7.2g/dL (13.0-17.5) White Blood Count 8.4x10^3/uL (4.0-11.0) Red Blood Count 2.45x10^6/uL (4.30-5.70) Hematocrit 21.5% (39.0-53.0) Mean Corpuscular Volume 88fL (79-100) Mean Corpuscular Hemoglobin 29pg (25-35) Mean Corpuscular Hemoglobin Concent 33g/dL (31-37) Red Cell Distribution Width 15.3% (11.5-14.5) Platelet Count 99x10^3/uL (140-400) Sodium Level 139mmol/L (136-145) Potassium Level 3.6mmol/L (3.5-5.1) Chloride Level 108mmol/L (98-107) Carbon Dioxide Level 20mmol/L (21-32) Anion Gap 11 (6-14) Blood Urea Nitrogen 31mg/dL (8-26) Creatinine 1.1mg/dL (0.7-1.3) Estimated GFR (Cockcroft-Gault) 66.6 BUN/Creatinine Ratio 28 (6-20) Glucose Level 121mg/dL (70-99) Calcium Level 8.0mg/dL (8.5-10.1) Total Bilirubin 2.6mg/dL (0.2-1.0) Aspartate Amino Transf (AST/SGOT) 66U/L (15-37) Alanine Aminotransferase (ALT/SGPT) 30U/L (16-63) Alkaline Phosphatase 141U/L (46-116) Total Protein 5.1g/dL (6.4-8.2) Albumin 1.9g/dL (3.4-5.0) Albumin/Globulin Ratio 0.6 (1.0-1.7) Review of Systems Review of Systems no abd pain, pallor, no emesis, small bloody stools Assessment and Plan Assessmemt and Plan Problems Medical Problems: (1) GI bleed Status: Acute (2) Lactic acidosis Status: Acute (3) Liver function abnormality Status: Acute Problems: Comment Review of Relevant I have reviewed the following items claire (where applicable) has been applied. Labs Laboratory Tests Test 12/13/16 14:27 12/13/16 14:44 12/13/16 15:31 12/13/16 18:40 White Blood Count 4.4x10^3/uL (4.0-11.0) Red Blood Count 1.90x10^6/uL (4.30-5.70) Hemoglobin 5.4g/dL (13.0-17.5) Hematocrit 16.6% (39.0-53.0) Mean Corpuscular Volume 88fL (79-100) Mean Corpuscular Hemoglobin 28pg (25-35) Mean Corpuscular Hemoglobin Concent 32g/dL (31-37) Red Cell Distribution Width 17.1% (11.5-14.5) Platelet Count 89x10^3/uL (140-400) Neutrophils (%) (Auto) 58% (31-73) Lymphocytes (%) (Auto) 19% (24-48) Monocytes (%) (Auto) 19% (0-9) Eosinophils (%) (Auto) 2% (0-3) Basophils (%) (Auto) 3% (0-3) Neutrophils # (Auto) 2.5x10^3uL (1.8-7.7) Lymphocytes # (Auto) 0.8x10^3/uL (1.0-4.8) Monocytes # (Auto) 0.8x10^3/uL (0.0-1.1) Eosinophils # (Auto) 0.1x10^3/uL (0.0-0.7) Basophils # (Auto) 0.1x10^3/uL (0.0-0.2) Prothrombin Time 19.0SEC (11.7-14.0) Prothromb Time International Ratio 1.7 (0.8-1.1) Activated Partial Thromboplast Time 26SEC (24-38) Sodium Level 140mmol/L (136-145) Potassium Level 4.2mmol/L (3.5-5.1) Chloride Level 107mmol/L (98-107) Carbon Dioxide Level 21mmol/L (21-32) Anion Gap 12 (6-14) Blood Urea Nitrogen 46mg/dL (8-26) Creatinine 1.5mg/dL (0.7-1.3) Estimated GFR (Cockcroft-Gault) 46.5 BUN/Creatinine Ratio 31 (6-20) Glucose Level 101mg/dL (70-99) Lactic Acid Level 2.5mmol/L (0.4-2.0) Calcium Level 9.0mg/dL (8.5-10.1) Total Bilirubin 2.6mg/dL (0.2-1.0) Aspartate Amino Transf (AST/SGOT) 88U/L (15-37) Alanine Aminotransferase (ALT/SGPT) 35U/L (16-63) Alkaline Phosphatase 176U/L (46-116) Troponin I Quantitative < 0.017ng/mL (0.000-0.055) Total Protein 6.0g/dL (6.4-8.2) Albumin 1.9g/dL (3.4-5.0) Albumin/Globulin Ratio 0.5 (1.0-1.7) Lipase 233U/L (73-393) Urine Collection Type Unknown Urine Color Yellow Urine Clarity Clear Urine pH 6.5 Urine Specific [place] 1.020 Urine Protein Negativemg/dL (NEG-TRACE) Urine Glucose (UA) Negativemg/dL (NEG) Urine Ketones (Stick) Negativemg/dL (NEG) Urine Blood Negative (NEG) Urine Nitrite Negative (NEG) Urine Bilirubin Negative (NEG) Urine Urobilinogen Dipstick 0.2mg/dL (0.2 mg/dL) Urine Leukocyte Esterase Negative (NEG) Urine RBC Occ/HPF (0-2) Urine WBC Occ/HPF (0-4) Urine Squamous Epithelial Cells Few/LPF Urine Transitional Epithelial Cells Occ/LPF Urine Bacteria Few/HPF (0-FEW) Urine Mucus Slight/LPF Urine Opiates Screen Neg (NEG) Urine Methadone Screen Neg (NEG) Urine Barbiturates Neg (NEG) Urine Phencyclidine Screen Neg (NEG) Urine Amphetamine/Methamphetamine Neg (NEG) Urine Benzodiazepines Screen Neg (NEG) Urine Cocaine Screen Neg (NEG) Urine Cannabinoids Screen Neg (NEG) Urine Ethyl Alcohol Neg (NEG) Stool Occult Blood Positive (NEG) Nasal Screen MRSA (PCR) Negative (Negative) Test 12/13/16 23:43 12/14/16 09:08 12/14/16 10:05 12/14/16 17:40 White Blood Count 5.4x10^3/uL (4.0-11.0) 5.6x10^3/uL (4.0-11.0) Red Blood Count 2.88x10^6/uL (4.30-5.70) 2.58x10^6/uL (4.30-5.70) Hemoglobin 8.4g/dL (13.0-17.5) 7.6g/dL (13.0-17.5) 8.0g/dL (13.0-17.5) Hematocrit 25.0% (39.0-53.0) 21.9% (39.0-53.0) Mean Corpuscular Volume 87fL (79-100) 85fL (79-100) Mean Corpuscular Hemoglobin 29pg (25-35) 30pg (25-35) Mean Corpuscular Hemoglobin Concent 34g/dL (31-37) 35g/dL (31-37) Red Cell Distribution Width 14.8% (11.5-14.5) 15.1% (11.5-14.5) Platelet Count 80x10^3/uL (140-400) 76x10^3/uL (140-400) Prothrombin Time 17.9SEC (11.7-14.0) Prothromb Time International Ratio 1.6 (0.8-1.1) Sodium Level 141mmol/L (136-145) Potassium Level 4.4mmol/L (3.5-5.1) Chloride Level 110mmol/L (98-107) Carbon Dioxide Level 18mmol/L (21-32) Anion Gap 13 (6-14) Blood Urea Nitrogen 45mg/dL (8-26) Creatinine 1.2mg/dL (0.7-1.3) Estimated GFR (Cockcroft-Gault) 60.2 Glucose Level 95mg/dL (70-99) Calcium Level 7.9mg/dL (8.5-10.1) Test 12/15/16 05:30 White Blood Count 8.4x10^3/uL (4.0-11.0) Red Blood Count 2.45x10^6/uL (4.30-5.70) Hemoglobin 7.2g/dL (13.0-17.5) Hematocrit 21.5% (39.0-53.0) Mean Corpuscular Volume 88fL (79-100) Mean Corpuscular Hemoglobin 29pg (25-35) Mean Corpuscular Hemoglobin Concent 33g/dL (31-37) Red Cell Distribution Width 15.3% (11.5-14.5) Platelet Count 99x10^3/uL (140-400) Sodium Level 139mmol/L (136-145) Potassium Level 3.6mmol/L (3.5-5.1) Chloride Level 108mmol/L (98-107) Carbon Dioxide Level 20mmol/L (21-32) Anion Gap 11 (6-14) Blood Urea Nitrogen 31mg/dL (8-26) Creatinine 1.1mg/dL (0.7-1.3) Estimated GFR (Cockcroft-Gault) 66.6 BUN/Creatinine Ratio 28 (6-20) Glucose Level 121mg/dL (70-99) Calcium Level 8.0mg/dL (8.5-10.1) Total Bilirubin 2.6mg/dL (0.2-1.0) Aspartate Amino Transf (AST/SGOT) 66U/L (15-37) Alanine Aminotransferase (ALT/SGPT) 30U/L (16-63) Alkaline Phosphatase 141U/L (46-116) Total Protein 5.1g/dL (6.4-8.2) Albumin 1.9g/dL (3.4-5.0) Albumin/Globulin Ratio 0.6 (1.0-1.7) Laboratory Tests Test 12/14/16 17:40 12/15/16 05:30 Hemoglobin 8.0g/dL (13.0-17.5) 7.2g/dL (13.0-17.5) White Blood Count 8.4x10^3/uL (4.0-11.0) Red Blood Count 2.45x10^6/uL (4.30-5.70) Hematocrit 21.5% (39.0-53.0) Mean Corpuscular Volume 88fL (79-100) Mean Corpuscular Hemoglobin 29pg (25-35) Mean Corpuscular Hemoglobin Concent 33g/dL (31-37) Red Cell Distribution Width 15.3% (11.5-14.5) Platelet Count 99x10^3/uL (140-400) Sodium Level 139mmol/L (136-145) Potassium Level 3.6mmol/L (3.5-5.1) Chloride Level 108mmol/L (98-107) Carbon Dioxide Level 20mmol/L (21-32) Anion Gap 11 (6-14) Blood Urea Nitrogen 31mg/dL (8-26) Creatinine 1.1mg/dL (0.7-1.3) Estimated GFR (Cockcroft-Gault) 66.6 BUN/Creatinine Ratio 28 (6-20) Glucose Level 121mg/dL (70-99) Calcium Level 8.0mg/dL (8.5-10.1) Total Bilirubin 2.6mg/dL (0.2-1.0) Aspartate Amino Transf (AST/SGOT) 66U/L (15-37) Alanine Aminotransferase (ALT/SGPT) 30U/L (16-63) Alkaline Phosphatase 141U/L (46-116) Total Protein 5.1g/dL (6.4-8.2) Albumin 1.9g/dL (3.4-5.0) Albumin/Globulin Ratio 0.6 (1.0-1.7) Medications Current Medications Iohexol (Omnipaque 300 Mg/ml) 75 ml 1X ONCE IV Last administered on 12/13/16 15:15; Start 12/13/16 at 14:45; Stop 12/13/16 at 14:46; Status DC Info 1 each 1 each PRN DAILY PRN MC SEE COMMENTS; Start 12/13/16 at 14:45; Stop 12/15/16 at 14:44 Ceftriaxone Sodium 50 ml @ 100 mls/hr 1X ONCE IV ; Start 12/13/16 at 15:45; Stop 12/13/16 at 16:14; Status DC Pantoprazole Sodium/Sodium Chloride (Protonix Iv/Iv Sodium Chloride 0.9% 100ml) 100 ml @ 10 mls/hr 1X ONCE IV Last administered on 12/13/16 16:48; Start at 16:00; Stop 12/14/16 at 01:59; Status DC Pantoprazole Sodium 80 mg 80 mg 1X ONCE IVP Last administered on 12/13/16 16: 47; Start 12/13/16 at 15:45; Stop 12/13/16 at 15:50; Status DC Octreotide Acetate/Sodium Chloride (Sandostatin/Iv Sodium Chloride 0.9% 100ml) 101 ml @ 0 mls/hr CONT PRN IV SEE I/O RECORD Last administered on 12/13/16 19: 02; Start 12/13/16 at 16:00; Stop 12/13/16 at 17:05; Status DC Octreotide Acetate 100 mcg 100 mcg 1X ONCE IV Last administered on 12/13/16 18:06; Start 12/13/16 at 15:45; Stop 12/14/16 at 10:35; Status DC Sodium Chloride 1,000 ml @ 1,000 mls/hr 1X ONCE IV Last administered on 16:46; Start 12/13/16 at 16:00; Stop 12/13/16 at 16:59; Status DC Phytonadione 10 mg/Sodium Chloride 51 ml @ 102 mls/hr 1X ONCE IV Last administered on 12/13/16 18:51; Start 12/13/16 at 16:45; Stop 12/13/16 at 17:14 ; Status DC Sodium Chloride 1,000 ml @ 1,000 mls/hr 1X ONCE IV ; Start 12/13/16 at 16:45; Stop 12/13/16 at 17:44; Status DC Sodium Chloride 1,000 ml @ 150 mls/hr CONT PRN IV SEE I/O RECORD Last administered on 12/14/16 05:37; Start 12/13/16 at 16:45; Stop 12/14/16 at 10:54 ; Status DC Multivitamins/ Minerals/Thiamine HCl/Folic Acid/ Sodium Chloride (Infuvite Adult / Iv Sodium Chloride 0.9% 1000ml Bag) 1,011.2 ml @ 100 mls/ hr DAILY IV Last administered on 12/14/16 09:38; Start 12/13/16 at 17:00; Stop 12/14/16 at 20:57 ; Status DC Multivitamins/ Calcium (Thera M Plus) 1 tab DAILY PO Last administered on 07:51; Start 12/14/16 at 09:00 Lorazepam (Ativan) 2 mg PRN Q1HR PRN IV For CIWA 8-14 Last administered on 12/14 02:09; Start 12/13/16 at 16:45 Lorazepam (Ativan) 4 mg PRN Q1HR PRN IV For CIWA 15 or greater; Start 12/13/16 at 16:45 Prednisone (Prednisone) 30 mg 1X ONCE PO ; Start 12/13/16 at 17:00; Stop at 17:28; Status DC Folic Acid (Folic Acid) 1 mg DAILY PO Last administered on 12/15/16 07:52; Start 12/15/16 at 09:00 Hydroxychloroquine Sulfate (Plaquenil) 200 mg BID PO ; Start 12/13/16 at 21:00; Status UNV Hydroxychloroquine Sulfate (Plaquenil) 200 mg BID PO Last administered on 07:52; Start 12/13/16 at 21:00 Prednisone (Prednisone) 5 mg DAILY PO ; Start 12/14/16 at 09:00; Stop 12/14/16 at 09:00; Status DC Tamsulosin HCl (Flomax) 0.4 mg QHS PO Last administered on 12/14/16 20:44; Start 12/13/16 at 21:00 Thiamine HCl (Vitamin B-1) 100 mg BID PO Last administered on 12/15/16 07:52; Start 12/13/16 at 21:00 Tramadol HCl (Ultram) 50 mg PRN Q6HRS PO ; Start 12/13/16 at 17:00; Stop at 17:21; Status DC Zolpidem Tartrate (Ambien) 5 mg QHS PO Last administered on 12/14/16 20:44; Start 12/13/16 at 21:00 Prednisone (Prednisone) 20 mg DAILY PO Last administered on 12/15/16 07:51; Start 12/14/16 at 09:00 Hydrocortisone Sodium Succinate (Solu-Cortef) 100 mg 1X ONCE IV ; Start at 17:00; Stop 12/13/16 at 17:09; Status DC Tramadol HCl 50 mg 50 mg PRN Q6HRS PRN PO MODERATE PAIN Last administered on 20:43; Start 12/13/16 at 17:21 Octreotide Acetate 500 mcg/ Sodium Chloride 101 ml @ 0 mls/hr CONT PRN IV SEE I /O RECORD Last administered on 12/14/16 05:33; Start 12/13/16 at 19:15; Stop at 10:35; Status DC Pantoprazole Sodium/Sodium Chloride (Protonix Iv/Iv Sodium Chloride 0.9% 100ml) 100 ml @ 10 mls/hr Q10H IV Last administered on 12/14/16 03:52; Start at 04:00; Stop 12/14/16 at 10:35; Status DC Pantoprazole Sodium (Protonix) 40 mg DAILYAC PO Last administered on 12/15/16 07:52; Start 12/15/16 at 07:30 Active Scripts Active Vitamin B-1 (Thiamine Hcl) 100 Mg Tablet 100 Mg PO BID Folic Acid 1 Mg Tablet 1 Mg PO DAILY Flomax (Tamsulosin Hcl) 0.4 Mg Cap.er.24h 0.4 Mg PO QHS Reported Omeprazole 20 Mg Capsule.dr 1 Cap PO DAILY Melatonin 5 Mg Tablet 5 Mg PO HS Tramadol Hcl 50 Mg Tablet 1 Tab PO PRN Q6HRS Alendronate Sodium 70 Mg Tablet 1 Tab PO WEEKLY Ambien (Zolpidem Tartrate) 5 Mg Tablet 1 Tab PO QHS Atorvastatin Calcium 10 Mg Tablet 1 Tab PO HS Prednisone 5 Mg Tablet 5 Mg PO DAILY Plaquenil (Hydroxychloroquine Sulfate) 200 Mg Tablet 200 Mg PO BID Plaquenil (Hydroxychloroquine Sulfate) 200 Mg Tablet 200 Mg PO BID Cimzia (Certolizumab Pegol) 400 Mg/2 Ml Syringekit 400 Mg SQ Vitals/I & O Vital Sign - Last 24 Hours 12/14/16 12/14/16 12/14/16 12/14/16 15:00 16:00 16:30 20:00 Temp 97.8 99.3 97.8 99.3 Pulse 86 84 Resp 18 B/P 128/59 106/46 Pulse Ox 98 97 O2 Delivery Room Air Room Air Room Air Room Air 12/14/16 12/14/16 12/14/16 12/14/16 20:43 20:58 21:43 23:00 Temp 97.7 98.5 97.7 98.5 Pulse 77 79 Resp 20 18 18 B/P 138/47 126/53 Pulse Ox 98 O2 Delivery Room Air Room Air 12/15/16 12/15/16 12/15/16 12/15/16 03:00 07:29 08:00 10:54 Temp 98.1 98.2 98.3 98.1 98.2 98.3 Pulse 77 77 73 Resp 18 B/P 99/41 112/48 83/47 Pulse Ox 94 92 91 O2 Delivery Room Air Room Air Room Air Intake and Output 12/14/16 12/14/16 12/15/16 15:00 23:00 07:00 Intake Total 1200.51 ml 240 ml Output Total 350 ml 550 ml Balance 850.51 ml -310 ml MICA VYAS MD Dec 15, 2016 11:42
[2016-12-15 14:51] VITALS: BP 97/49
[2016-12-15 19:21] VITALS: BP 108/45
[2016-12-15] MEDS: ZOLPIDEM 5 MG TABLET. PO SCH (20:30)
[2016-12-15] MEDS: TAMSULOSIN 0.4 MG CAP.ER.24H. PO SCH (20:30)
[2016-12-15 22:44] VITALS: BP 110/54
[2016-12-16] VITALS (8 sets, daily range): BP systolic 100–126; BP diastolic 39–58
[2016-12-16 04:51] LABS: BASO # 0.1 x10^3/uL (0.0-0.2); BASO % 1 % (0-3); EOS % 3 % (0-3); LYMPH # 1.2 x10^3/uL (1.0-4.8); LYMPH % 22 % (24-48); MEAN CORPUSCULAR HEMOGLOBIN 30 pg (25-35); MEAN CORPUSCULAR HGB CONC 33 g/dL (31-37); MEAN CORPUSCULAR VOLUME 88 fL (79-100); MONO % 13 % (0-9); NEUT % 62 % (31-73); PLATELET COUNT 96 x10^3/uL (140-400); RED BLOOD COUNT 2.27 x10^6/uL (4.30-5.70); RED CELL DISTRIBUTION WIDTH 15.5 % (11.5-14.5); WHITE BLOOD COUNT 5.6 x10^3/uL (4.0-11.0)
[2016-12-16 04:59] LABS: HEMATOCRIT 20.1 % (39.0-53.0); HEMOGLOBIN 6.7 g/dL (13.0-17.5)
[2016-12-16] MEDS: THIAMINE 100 MG TABLET. PO SCH ×2 (07:49→21:12)
[2016-12-16] MEDS: FOLIC ACID 1 MG TABLET PO SCH (07:49)
[2016-12-16] MEDS: PANTOPRAZOLE 40 MG TABLET. PO SCH (07:49)
[2016-12-16] MEDS: HYDROXYCHLOROQUINE 200 MG TABLET PO SCH ×2 (07:49→21:12)
[2016-12-16] MEDS: MULTIVITAMIN with MINERAL TABLET. PO SCH (07:49)
[2016-12-16] MEDS: PREDNISONE 20 MG TABLET PO SCH (07:49)
--- NOTE | 2016-12-16 10:46 | PDOC ---
PROGRESS NOTES Chief Complaint Chief Complaint UGIB sec to thrombocytopenia in an alcoholic Liver cirrhosis [place], resolved HYPOVOLEMIA, resolved ALCOHOLISM LIVER FAILURE CKD TAGE 3 MOd pcm HTN, HLD, COPD (prior respiratory failure), RA, "hepatitis" (teenager), osteoporosis, alcoholism, BCC (excised), cholecystectomy ACUTE BLOOD LOSS ANEMIA PRECIPITOUS DROP in HGB History of Present Illness History of Present Illness HGb down to 6.7 today, baseline is 8 Says still has dark stools Platelets steady at 90s CReatinine ok - was here last admission for JESSICA Unfortunately drank at home when was dcd 4 days ago PLAN STart Ferrous sulfate Transfuse 1 pRBC HH again suzanne Start PT/oT - pt seems to have limited mobility Vitals Vitals Vital Signs Date Time Temp Pulse Resp B/P Pulse Ox O2 Delivery O2 Flow Rate FiO2 12/16/16 08:00 Room Air 12/16/16 07:00 97.9 70 18 104/43 95 97.9 Physical Exam General: Alert, Oriented X3 Heart: Regular rate, Normal S1, Normal S2, No murmurs Lungs: Clear, Other Abdomen: Soft, No tenderness Extremities: No clubbing, No cyanosis Skin: No breakdown, No significant lesion Labs LABS Laboratory Tests Test 12/16/16 03:54 White Blood Count 5.6x10^3/uL (4.0-11.0) Red Blood Count 2.27x10^6/uL (4.30-5.70) Hemoglobin 6.7g/dL (13.0-17.5) Hematocrit 20.1% (39.0-53.0) Mean Corpuscular Volume 88fL (79-100) Mean Corpuscular Hemoglobin 30pg (25-35) Mean Corpuscular Hemoglobin Concent 33g/dL (31-37) Red Cell Distribution Width 15.5% (11.5-14.5) Platelet Count 96x10^3/uL (140-400) Neutrophils (%) (Auto) 62% (31-73) Lymphocytes (%) (Auto) 22% (24-48) Monocytes (%) (Auto) 13% (0-9) Eosinophils (%) (Auto) 3% (0-3) Basophils (%) (Auto) 1% (0-3) Neutrophils # (Auto) 3.5x10^3uL (1.8-7.7) Lymphocytes # (Auto) 1.2x10^3/uL (1.0-4.8) Monocytes # (Auto) 0.7x10^3/uL (0.0-1.1) Eosinophils # (Auto) 0.1x10^3/uL (0.0-0.7) Basophils # (Auto) 0.1x10^3/uL (0.0-0.2) Review of Systems Review of Systems Dark stool, some epigastric tenderness on palpation, no CP, SOA or emesis Assessment and Plan Assessmemt and Plan Problems Medical Problems: (1) GI bleed Status: Acute (2) Lactic acidosis Status: Acute (3) Liver function abnormality Status: Acute Problems: Comment Review of Relevant I have reviewed the following items claire (where applicable) has been applied. Labs Laboratory Tests Test 12/14/16 17:40 12/15/16 05:30 12/16/16 03:54 Hemoglobin 8.0g/dL (13.0-17.5) 7.2g/dL (13.0-17.5) 6.7g/dL (13.0-17.5) White Blood Count 8.4x10^3/uL (4.0-11.0) 5.6x10^3/uL (4.0-11.0) Red Blood Count 2.45x10^6/uL (4.30-5.70) 2.27x10^6/uL (4.30-5.70) Hematocrit 21.5% (39.0-53.0) 20.1% (39.0-53.0) Mean Corpuscular Volume 88fL (79-100) 88fL (79-100) Mean Corpuscular Hemoglobin 29pg (25-35) 30pg (25-35) Mean Corpuscular Hemoglobin Concent 33g/dL (31-37) 33g/dL (31-37) Red Cell Distribution Width 15.3% (11.5-14.5) 15.5% (11.5-14.5) Platelet Count 99x10^3/uL (140-400) 96x10^3/uL (140-400) Sodium Level 139mmol/L (136-145) Potassium Level 3.6mmol/L (3.5-5.1) Chloride Level 108mmol/L (98-107) Carbon Dioxide Level 20mmol/L (21-32) Anion Gap 11 (6-14) Blood Urea Nitrogen 31mg/dL (8-26) Creatinine 1.1mg/dL (0.7-1.3) Estimated GFR (Cockcroft-Gault) 66.6 BUN/Creatinine Ratio 28 (6-20) Glucose Level 121mg/dL (70-99) Calcium Level 8.0mg/dL (8.5-10.1) Total Bilirubin 2.6mg/dL (0.2-1.0) Aspartate Amino Transf (AST/SGOT) 66U/L (15-37) Alanine Aminotransferase (ALT/SGPT) 30U/L (16-63) Alkaline Phosphatase 141U/L (46-116) Total Protein 5.1g/dL (6.4-8.2) Albumin 1.9g/dL (3.4-5.0) Albumin/Globulin Ratio 0.6 (1.0-1.7) Neutrophils (%) (Auto) 62% (31-73) Lymphocytes (%) (Auto) 22% (24-48) Monocytes (%) (Auto) 13% (0-9) Eosinophils (%) (Auto) 3% (0-3) Basophils (%) (Auto) 1% (0-3) Neutrophils # (Auto) 3.5x10^3uL (1.8-7.7) Lymphocytes # (Auto) 1.2x10^3/uL (1.0-4.8) Monocytes # (Auto) 0.7x10^3/uL (0.0-1.1) Eosinophils # (Auto) 0.1x10^3/uL (0.0-0.7) Basophils # (Auto) 0.1x10^3/uL (0.0-0.2) Laboratory Tests Test 12/16/16 03:54 White Blood Count 5.6x10^3/uL (4.0-11.0) Red Blood Count 2.27x10^6/uL (4.30-5.70) Hemoglobin 6.7g/dL (13.0-17.5) Hematocrit 20.1% (39.0-53.0) Mean Corpuscular Volume 88fL (79-100) Mean Corpuscular Hemoglobin 30pg (25-35) Mean Corpuscular Hemoglobin Concent 33g/dL (31-37) Red Cell Distribution Width 15.5% (11.5-14.5) Platelet Count 96x10^3/uL (140-400) Neutrophils (%) (Auto) 62% (31-73) Lymphocytes (%) (Auto) 22% (24-48) Monocytes (%) (Auto) 13% (0-9) Eosinophils (%) (Auto) 3% (0-3) Basophils (%) (Auto) 1% (0-3) Neutrophils # (Auto) 3.5x10^3uL (1.8-7.7) Lymphocytes # (Auto) 1.2x10^3/uL (1.0-4.8) Monocytes # (Auto) 0.7x10^3/uL (0.0-1.1) Eosinophils # (Auto) 0.1x10^3/uL (0.0-0.7) Basophils # (Auto) 0.1x10^3/uL (0.0-0.2) Medications Current Medications Iohexol (Omnipaque 300 Mg/ml) 75 ml 1X ONCE IV Last administered on 12/13/16 15:15; Start 12/13/16 at 14:45; Stop 12/13/16 at 14:46; Status DC Info 1 each 1 each PRN DAILY PRN MC SEE COMMENTS; Start 12/13/16 at 14:45; Stop 12/15/16 at 14:44; Status DC Ceftriaxone Sodium 50 ml @ 100 mls/hr 1X ONCE IV ; Start 12/13/16 at 15:45; Stop 12/13/16 at 16:14; Status DC Pantoprazole Sodium/Sodium Chloride (Protonix Iv/Iv Sodium Chloride 0.9% 100ml) 100 ml @ 10 mls/hr 1X ONCE IV Last administered on 12/13/16 16:48; Start at 16:00; Stop 12/14/16 at 01:59; Status DC Pantoprazole Sodium 80 mg 80 mg 1X ONCE IVP Last administered on 12/13/16 16: 47; Start 12/13/16 at 15:45; Stop 12/13/16 at 15:50; Status DC Octreotide Acetate/Sodium Chloride (Sandostatin/Iv Sodium Chloride 0.9% 100ml) 101 ml @ 0 mls/hr CONT PRN IV SEE I/O RECORD Last administered on 12/13/16 19: 02; Start 12/13/16 at 16:00; Stop 12/13/16 at 17:05; Status DC Octreotide Acetate 100 mcg 100 mcg 1X ONCE IV Last administered on 12/13/16 18:06; Start 12/13/16 at 15:45; Stop 12/14/16 at 10:35; Status DC Sodium Chloride 1,000 ml @ 1,000 mls/hr 1X ONCE IV Last administered on 16:46; Start 12/13/16 at 16:00; Stop 12/13/16 at 16:59; Status DC Phytonadione 10 mg/Sodium Chloride 51 ml @ 102 mls/hr 1X ONCE IV Last administered on 12/13/16 18:51; Start 12/13/16 at 16:45; Stop 12/13/16 at 17:14 ; Status DC Sodium Chloride 1,000 ml @ 1,000 mls/hr 1X ONCE IV ; Start 12/13/16 at 16:45; Stop 12/13/16 at 17:44; Status DC Sodium Chloride 1,000 ml @ 150 mls/hr CONT PRN IV SEE I/O RECORD Last administered on 12/14/16 05:37; Start 12/13/16 at 16:45; Stop 12/14/16 at 10:54 ; Status DC Multivitamins/ Minerals/Thiamine HCl/Folic Acid/ Sodium Chloride (Infuvite Adult / Iv Sodium Chloride 0.9% 1000ml Bag) 1,011.2 ml @ 100 mls/ hr DAILY IV Last administered on 12/14/16 09:38; Start 12/13/16 at 17:00; Stop 12/14/16 at 20:57 ; Status DC Multivitamins/ Calcium (Thera M Plus) 1 tab DAILY PO Last administered on 07:49; Start 12/14/16 at 09:00 Lorazepam (Ativan) 2 mg PRN Q1HR PRN IV For CIWA 8-14 Last administered on 12/14 02:09; Start 12/13/16 at 16:45 Lorazepam (Ativan) 4 mg PRN Q1HR PRN IV For CIWA 15 or greater; Start 12/13/16 at 16:45 Prednisone (Prednisone) 30 mg 1X ONCE PO ; Start 12/13/16 at 17:00; Stop at 17:28; Status DC Folic Acid (Folic Acid) 1 mg DAILY PO Last administered on 12/16/16 07:49; Start 12/15/16 at 09:00 Hydroxychloroquine Sulfate (Plaquenil) 200 mg BID PO ; Start 12/13/16 at 21:00; Status UNV Hydroxychloroquine Sulfate (Plaquenil) 200 mg BID PO Last administered on 07:49; Start 12/13/16 at 21:00 Prednisone (Prednisone) 5 mg DAILY PO ; Start 12/14/16 at 09:00; Stop 12/14/16 at 09:00; Status DC Tamsulosin HCl (Flomax) 0.4 mg QHS PO Last administered on 12/15/16 20:30; Start 12/13/16 at 21:00 Thiamine HCl (Vitamin B-1) 100 mg BID PO Last administered on 12/16/16 07:49; Start 12/13/16 at 21:00 Tramadol HCl (Ultram) 50 mg PRN Q6HRS PO ; Start 12/13/16 at 17:00; Stop at 17:21; Status DC Zolpidem Tartrate (Ambien) 5 mg QHS PO Last administered on 12/15/16 20:30; Start 12/13/16 at 21:00 Prednisone (Prednisone) 20 mg DAILY PO Last administered on 12/16/16 07:49; Start 12/14/16 at 09:00 Hydrocortisone Sodium Succinate (Solu-Cortef) 100 mg 1X ONCE IV ; Start at 17:00; Stop 12/13/16 at 17:09; Status DC Tramadol HCl 50 mg 50 mg PRN Q6HRS PRN PO MODERATE PAIN Last administered on 20:43; Start 12/13/16 at 17:21 Octreotide Acetate 500 mcg/ Sodium Chloride 101 ml @ 0 mls/hr CONT PRN IV SEE I /O RECORD Last administered on 12/14/16 05:33; Start 12/13/16 at 19:15; Stop at 10:35; Status DC Pantoprazole Sodium/Sodium Chloride (Protonix Iv/Iv Sodium Chloride 0.9% 100ml) 100 ml @ 10 mls/hr Q10H IV Last administered on 12/14/16 03:52; Start at 04:00; Stop 12/14/16 at 10:35; Status DC Pantoprazole Sodium (Protonix) 40 mg DAILYAC PO Last administered on 12/16/16 07:49; Start 12/15/16 at 07:30 Active Scripts Active Vitamin B-1 (Thiamine Hcl) 100 Mg Tablet 100 Mg PO BID Folic Acid 1 Mg Tablet 1 Mg PO DAILY Flomax (Tamsulosin Hcl) 0.4 Mg Cap.er.24h 0.4 Mg PO QHS Reported Omeprazole 20 Mg Capsule.dr 1 Cap PO DAILY Melatonin 5 Mg Tablet 5 Mg PO HS Tramadol Hcl 50 Mg Tablet 1 Tab PO PRN Q6HRS Alendronate Sodium 70 Mg Tablet 1 Tab PO WEEKLY Ambien (Zolpidem Tartrate) 5 Mg Tablet 1 Tab PO QHS Atorvastatin Calcium 10 Mg Tablet 1 Tab PO HS Prednisone 5 Mg Tablet 5 Mg PO DAILY Plaquenil (Hydroxychloroquine Sulfate) 200 Mg Tablet 200 Mg PO BID Plaquenil (Hydroxychloroquine Sulfate) 200 Mg Tablet 200 Mg PO BID Cimzia (Certolizumab Pegol) 400 Mg/2 Ml Syringekit 400 Mg SQ Vitals/I & O Vital Sign - Last 24 Hours 12/15/16 12/15/16 12/15/16 12/15/16 10:54 14:51 19:21 22:44 Temp 98.3 97.7 98.3 98.5 98.3 97.7 98.3 98.5 Pulse 73 76 82 75 Resp 18 B/P 83/47 97/49 108/45 110/54 Pulse Ox 91 95 94 92 O2 Delivery Room Air Room Air Room Air Room Air 12/16/16 12/16/16 07:00 08:00 Temp 97.9 97.9 Pulse 70 Resp 18 B/P 104/43 Pulse Ox 95 O2 Delivery Room Air Room Air Intake and Output 12/15/16 12/15/16 12/16/16 15:00 23:00 07:00 Intake Total 500 ml 820 ml Output Total 600 ml 500 ml 250 ml Balance -100 ml 320 ml -250 ml MICA VYAS MD Dec 16, 2016 10:46
--- NOTE | 2016-12-16 11:42 | PDOC ---
VERA MILLER SUPERVISOR [employer] 12/16/16 1142: SURGICAL PROGRESS NOTE Subjective some dark stools still to get a unit of blood Vital Signs Vital Signs Date Time Temp Pulse Resp B/P Pulse Ox O2 Delivery O2 Flow Rate FiO2 12/16/16 11:08 97.8 71 18 106/45 95 Room Air 97.8 I&O Intake and Output 12/16/16 07:00 Intake Total 1320 ml Output Total 1350 ml Balance -30 ml Intake Oral 1320 ml Output Urine Total 1350 ml # Bowel Movements 1 General: Alert, Oriented X3, Cooperative, No acute distress Abdomen: Soft Labs Laboratory Tests Test 12/14/16 17:40 12/15/16 05:30 12/16/16 03:54 Hemoglobin 8.0g/dL (13.0-17.5) 7.2g/dL (13.0-17.5) 6.7g/dL (13.0-17.5) White Blood Count 8.4x10^3/uL (4.0-11.0) 5.6x10^3/uL (4.0-11.0) Red Blood Count 2.45x10^6/uL (4.30-5.70) 2.27x10^6/uL (4.30-5.70) Hematocrit 21.5% (39.0-53.0) 20.1% (39.0-53.0) Mean Corpuscular Volume 88fL (79-100) 88fL (79-100) Mean Corpuscular Hemoglobin 29pg (25-35) 30pg (25-35) Mean Corpuscular Hemoglobin Concent 33g/dL (31-37) 33g/dL (31-37) Red Cell Distribution Width 15.3% (11.5-14.5) 15.5% (11.5-14.5) Platelet Count 99x10^3/uL (140-400) 96x10^3/uL (140-400) Sodium Level 139mmol/L (136-145) Potassium Level 3.6mmol/L (3.5-5.1) Chloride Level 108mmol/L (98-107) Carbon Dioxide Level 20mmol/L (21-32) Anion Gap 11 (6-14) Blood Urea Nitrogen 31mg/dL (8-26) Creatinine 1.1mg/dL (0.7-1.3) Estimated GFR (Cockcroft-Gault) 66.6 BUN/Creatinine Ratio 28 (6-20) Glucose Level 121mg/dL (70-99) Calcium Level 8.0mg/dL (8.5-10.1) Total Bilirubin 2.6mg/dL (0.2-1.0) Aspartate Amino Transf (AST/SGOT) 66U/L (15-37) Alanine Aminotransferase (ALT/SGPT) 30U/L (16-63) Alkaline Phosphatase 141U/L (46-116) Total Protein 5.1g/dL (6.4-8.2) Albumin 1.9g/dL (3.4-5.0) Albumin/Globulin Ratio 0.6 (1.0-1.7) Neutrophils (%) (Auto) 62% (31-73) Lymphocytes (%) (Auto) 22% (24-48) Monocytes (%) (Auto) 13% (0-9) Eosinophils (%) (Auto) 3% (0-3) Basophils (%) (Auto) 1% (0-3) Neutrophils # (Auto) 3.5x10^3uL (1.8-7.7) Lymphocytes # (Auto) 1.2x10^3/uL (1.0-4.8) Monocytes # (Auto) 0.7x10^3/uL (0.0-1.1) Eosinophils # (Auto) 0.1x10^3/uL (0.0-0.7) Basophils # (Auto) 0.1x10^3/uL (0.0-0.2) Laboratory Tests Test 12/16/16 03:54 White Blood Count 5.6x10^3/uL (4.0-11.0) Red Blood Count 2.27x10^6/uL (4.30-5.70) Hemoglobin 6.7g/dL (13.0-17.5) Hematocrit 20.1% (39.0-53.0) Mean Corpuscular Volume 88fL (79-100) Mean Corpuscular Hemoglobin 30pg (25-35) Mean Corpuscular Hemoglobin Concent 33g/dL (31-37) Red Cell Distribution Width 15.5% (11.5-14.5) Platelet Count 96x10^3/uL (140-400) Neutrophils (%) (Auto) 62% (31-73) Lymphocytes (%) (Auto) 22% (24-48) Monocytes (%) (Auto) 13% (0-9) Eosinophils (%) (Auto) 3% (0-3) Basophils (%) (Auto) 1% (0-3) Neutrophils # (Auto) 3.5x10^3uL (1.8-7.7) Lymphocytes # (Auto) 1.2x10^3/uL (1.0-4.8) Monocytes # (Auto) 0.7x10^3/uL (0.0-1.1) Eosinophils # (Auto) 0.1x10^3/uL (0.0-0.7) Basophils # (Auto) 0.1x10^3/uL (0.0-0.2) Problem List Problems Medical Problems: (1) GI bleed Status: Acute (2) Lactic acidosis Status: Acute (3) Liver function abnormality Status: Acute Assessment/Plan hgb 6.7, recheck in AM--if still down, would rec IR consult for possible embolization Problems: TARAH ISRAEL MD 12/16/16 1404: SURGICAL PROGRESS NOTE Assessment/Plan Agree with above Problems: VERA MILLER APRN Dec 16, 2016 11:42 TARAH ISRAEL MD Dec 16, 2016 14:04
--- NOTE | 2016-12-16 11:59 | PDOC ---
Subjective: Subjective: Tells me dark red blood on tissue after BM last night. A little abd pain. Eating well. Objective: Objective: Reviewed notes. Transfusing. Vital Signs: Vital Signs Date Time Temp Pulse Resp B/P Pulse Ox O2 Delivery O2 Flow Rate FiO2 12/16/16 11:41 98.5 76 16 107/39 98.5 12/16/16 11:08 95 Room Air Labs: Laboratory Tests Test 12/16/16 03:54 White Blood Count 5.6x10^3/uL Red Blood Count 2.27x10^6/uL Hemoglobin 6.7g/dL Hematocrit 20.1% Mean Corpuscular Volume 88fL Mean Corpuscular Hemoglobin 30pg Mean Corpuscular Hemoglobin Concent 33g/dL Red Cell Distribution Width 15.5% Platelet Count 96x10^3/uL Neutrophils (%) (Auto) 62% Lymphocytes (%) (Auto) 22% Monocytes (%) (Auto) 13% Eosinophils (%) (Auto) 3% Basophils (%) (Auto) 1% Neutrophils # (Auto) 3.5x10^3uL Lymphocytes # (Auto) 1.2x10^3/uL Monocytes # (Auto) 0.7x10^3/uL Eosinophils # (Auto) 0.1x10^3/uL Basophils # (Auto) 0.1x10^3/uL PE: GEN: NAD LUNGS: CTAB HEART: RRR ABD: S/ND, vague tenderness NEURO/PSYCH: A & O 3 A/P: Probable diverticular bleed -GI bleed scan neg on admission -advanced diet yesterday, reports of ongoing bleeding (dark), Hgb drifting -on iron, PPI Alcoholic liver disease -- Will review w/ Dr. Sheldon. NOMI LAGUERRE Dec 16, 2016 11:59
[2016-12-16] MEDS: FERROUS SULFATE 325 MG TABLET PO SCH (12:36)
[2016-12-16 14:57] LABS: INR 1.6 (0.8-1.1); PROTHROMBIN TIME PATIENT 17.8 SEC (11.7-14.0)
[2016-12-16 16:24] LABS: HEMATOCRIT 23.7 % (39.0-53.0); HEMOGLOBIN 7.9 g/dL (13.0-17.5)
[2016-12-16] MEDS: TAMSULOSIN 0.4 MG CAP.ER.24H. PO SCH (21:12)
[2016-12-16] MEDS: ZOLPIDEM 5 MG TABLET. PO SCH (21:12)
[2016-12-17 03:01] VITALS: BP 108/59
[2016-12-17 04:46] LABS: HEMATOCRIT 24.1 % (39.0-53.0); HEMOGLOBIN 8.1 g/dL (13.0-17.5)
[2016-12-17 07:00] VITALS: BP 89/44
--- NOTE | 2016-12-17 08:35 | PDOC ---
VERA MILLER FOLLOW UP MANAGER 12/17/16 0835: SURGICAL PROGRESS NOTE Subjective no complaints no further bleeding Vital Signs Vital Signs Date Time Temp Pulse Resp B/P Pulse Ox O2 Delivery O2 Flow Rate FiO2 12/17/16 03:01 98.7 70 18 108/59 99 Room Air 98.7 I&O Intake and Output 12/17/16 07:00 Intake Total 1460 ml Output Total 800 ml Balance 660 ml Intake Oral 760 ml Blood Product IV Normal Saline Flush 700 ml Output Urine Total 800 ml # Bowel Movements 1 General: Alert, Oriented X3, Cooperative, No acute distress Abdomen: Soft, Other (mildly tender ruq) Labs Laboratory Tests Test 12/16/16 03:54 12/16/16 14:20 12/16/16 16:15 12/17/16 04:05 White Blood Count 5.6x10^3/uL (4.0-11.0) Red Blood Count 2.27x10^6/uL (4.30-5.70) Hemoglobin 6.7g/dL (13.0-17.5) 7.9g/dL (13.0-17.5) 8.1g/dL (13.0-17.5) Hematocrit 20.1% (39.0-53.0) 23.7% (39.0-53.0) 24.1% (39.0-53.0) Mean Corpuscular Volume 88fL (79-100) Mean Corpuscular Hemoglobin 30pg (25-35) Mean Corpuscular Hemoglobin Concent 33g/dL (31-37) 33g/dL (31-37) 33g/dL (31-37) Red Cell Distribution Width 15.5% (11.5-14.5) Platelet Count 96x10^3/uL (140-400) Neutrophils (%) (Auto) 62% (31-73) Lymphocytes (%) (Auto) 22% (24-48) Monocytes (%) (Auto) 13% (0-9) Eosinophils (%) (Auto) 3% (0-3) Basophils (%) (Auto) 1% (0-3) Neutrophils # (Auto) 3.5x10^3uL (1.8-7.7) Lymphocytes # (Auto) 1.2x10^3/uL (1.0-4.8) Monocytes # (Auto) 0.7x10^3/uL (0.0-1.1) Eosinophils # (Auto) 0.1x10^3/uL (0.0-0.7) Basophils # (Auto) 0.1x10^3/uL (0.0-0.2) Prothrombin Time 17.8SEC (11.7-14.0) Prothromb Time International Ratio 1.6 (0.8-1.1) Laboratory Tests Test 12/16/16 14:20 12/16/16 16:15 12/17/16 04:05 Prothrombin Time 17.8SEC (11.7-14.0) Prothromb Time International Ratio 1.6 (0.8-1.1) Hemoglobin 7.9g/dL (13.0-17.5) 8.1g/dL (13.0-17.5) Hematocrit 23.7% (39.0-53.0) 24.1% (39.0-53.0) Mean Corpuscular Hemoglobin Concent 33g/dL (31-37) 33g/dL (31-37) Problem List Problems Medical Problems: (1) GI bleed Status: Acute (2) Lactic acidosis Status: Acute (3) Liver function abnormality Status: Acute Assessment/Plan cirrhosis, gi bleed hgb improved ca 8, INR 1.6 supportive care, maintain electrolytes, watch coagulopathy no surgical needs, would consult IR signs of rebleed Problems: TARAH ISRAEL MD 12/17/16 1215: SURGICAL PROGRESS NOTE Assessment/Plan Agree with above Problems: VERA MILLER APRN Dec 17, 2016 08:35 TARAH ISRAEL MD Dec 17, 2016 12:15
[2016-12-17] MEDS: FOLIC ACID 1 MG TABLET PO SCH (09:10)
[2016-12-17] MEDS: HYDROXYCHLOROQUINE 200 MG TABLET PO SCH ×2 (09:10→20:08)
[2016-12-17] MEDS: THIAMINE 100 MG TABLET. PO SCH ×2 (09:10→20:08)
[2016-12-17] MEDS: PREDNISONE 20 MG TABLET PO SCH (09:11)
[2016-12-17] MEDS: PANTOPRAZOLE 40 MG TABLET. PO SCH (09:11)
[2016-12-17] MEDS: FERROUS SULFATE 325 MG TABLET PO SCH (09:11)
[2016-12-17] MEDS: MULTIVITAMIN with MINERAL TABLET. PO SCH (09:11)
--- NOTE | 2016-12-17 09:54 | PDOC ---
PROGRESS NOTES Chief Complaint Chief Complaint maroon hematochezia ASSESSMENT AND PLAN: 1. LGIB: suspected diverticular bleed. resolving 2. Anemia: acute blood loss. seems to be stabilizing after PRBC x4. monitor for another 24-48h. increase PO iron to at least bid for the next 6 months minimum 3. EtOH cirrhosis: no acute issues 4. JESSICA: 2/2 vasomotor/dehydration. resolved 5. CKD3: creat at baseline 6. HTN, HLD: no acute issues. cont home meds 7. COPD: no acute issues. nebs PRN 8. Protein malnutrition: moderate, prob partially due to liver dysfxn. protein rich diet 9. Dispo: if H/H remains stable for 48-72h, can D/C home Vitals Vitals Vital Signs Date Time Temp Pulse Resp B/P Pulse Ox O2 Delivery O2 Flow Rate FiO2 12/17/16 03:01 98.7 70 18 108/59 99 Room Air 98.7 Physical Exam General: Alert, Oriented X3, Cooperative, No acute distress Heart: Regular rate, Normal S1, Normal S2, No murmurs Lungs: Clear, Other Abdomen: Normal bowel sounds, Soft, No tenderness, Other Extremities: No clubbing, No cyanosis Skin: No breakdown, No significant lesion Labs LABS Laboratory Tests Test 12/16/16 14:20 12/16/16 16:15 12/17/16 04:05 Prothrombin Time 17.8SEC (11.7-14.0) Prothromb Time International Ratio 1.6 (0.8-1.1) Hemoglobin 7.9g/dL (13.0-17.5) 8.1g/dL (13.0-17.5) Hematocrit 23.7% (39.0-53.0) 24.1% (39.0-53.0) Mean Corpuscular Hemoglobin Concent 33g/dL (31-37) 33g/dL (31-37) Review of Systems Review of Systems abd a bit achy, not really painful. Comment Review of Relevant SEAN DOUGLAS MD Dec 17, 2016 09:54
[2016-12-17 11:00] VITALS: BP 134/81
--- NOTE | 2016-12-17 14:38 | PDOC ---
Subjective: Subjective: In restroom. Denies further bleeding w/ BMs. Objective: Vital Signs: Vital Signs Date Time Temp Pulse Resp B/P Pulse Ox O2 Delivery O2 Flow Rate FiO2 12/17/16 11:00 97.5 75 18 134/81 97 Room Air 97.5 Labs: Laboratory Tests Test 12/16/16 16:15 12/17/16 04:05 Hemoglobin 7.9g/dL 8.1g/dL Hematocrit 23.7% 24.1% Mean Corpuscular Hemoglobin Concent 33g/dL 33g/dL PE: no exam - spoke through restroom door A/P: Probable diverticular bleed - resolved -Hgb improved -on iron, PPI Alcoholic liver disease -- Stable GI-vega. NOMI LAGUERRE Dec 17, 2016 14:38
[2016-12-17 15:00] VITALS: BP 120/69
[2016-12-17 19:00] VITALS: BP 119/54
[2016-12-17] MEDS: TAMSULOSIN 0.4 MG CAP.ER.24H. PO SCH (20:08)
[2016-12-17] MEDS: ZOLPIDEM 5 MG TABLET. PO SCH (20:09)
[2016-12-17 23:00] VITALS: BP 110/64
[2016-12-18 06:51] LABS: BASO # 0.1 x10^3/uL (0.0-0.2); BASO % 1 % (0-3); EOS % 2 % (0-3); HEMATOCRIT 24.7 % (39.0-53.0); HEMOGLOBIN 8.4 g/dL (13.0-17.5); LYMPH # 1.1 x10^3/uL (1.0-4.8); LYMPH % 18 % (24-48); MEAN CORPUSCULAR HEMOGLOBIN 30 pg (25-35); MEAN CORPUSCULAR HGB CONC 34 g/dL (31-37); MEAN CORPUSCULAR VOLUME 87 fL (79-100); MONO % 10 % (0-9); NEUT % 69 % (31-73); PLATELET COUNT 121 x10^3/uL (140-400); RED BLOOD COUNT 2.83 x10^6/uL (4.30-5.70); RED CELL DISTRIBUTION WIDTH 15.6 % (11.5-14.5); WHITE BLOOD COUNT 5.9 x10^3/uL (4.0-11.0)
[2016-12-18 07:00] VITALS: BP 89/47
[2016-12-18 07:03] LABS: ALBUMIN 1.9 g/dL (3.4-5.0); ALBUMIN/GLOBULIN RATIO 0.5 (1.0-1.7); CALCIUM 8.4 mg/dL (8.5-10.1); CREATININE 0.9 mg/dL (0.7-1.3); GFR 83.9; POTASSIUM 3.5 mmol/L (3.5-5.1); TOTAL BILIRUBIN 1.5 mg/dL (0.2-1.0); TOTAL PROTEIN 5.8 g/dL (6.4-8.2)
[2016-12-18 07:10] VITALS: BP 104/50
[2016-12-18] MEDS: THIAMINE 100 MG TABLET. PO SCH (08:15)
[2016-12-18] MEDS: FERROUS SULFATE 325 MG TABLET PO SCH ×2 (08:15→16:23)
[2016-12-18] MEDS: PANTOPRAZOLE 40 MG TABLET. PO SCH (08:15)
[2016-12-18] MEDS: HYDROXYCHLOROQUINE 200 MG TABLET PO SCH (08:15)
[2016-12-18] MEDS: MULTIVITAMIN with MINERAL TABLET. PO SCH (08:15)
[2016-12-18] MEDS: PREDNISONE 20 MG TABLET PO SCH (08:15)
[2016-12-18] MEDS: FOLIC ACID 1 MG TABLET PO SCH (08:15)
--- NOTE | 2016-12-18 08:55 | PDOC ---
VERA MILLER OPERATING ROOM MANAGER 12/18/16 0855: SURGICAL PROGRESS NOTE Subjective no further bleeding mild RUQ pain Vital Signs Vital Signs Date Time Temp Pulse Resp B/P Pulse Ox O2 Delivery O2 Flow Rate FiO2 12/18/16 07:10 104/50 12/18/16 07:00 98.7 93 20 93 Room Air 98.7 I&O Intake and Output 12/18/16 07:00 Intake Total 780 ml Balance 780 ml Intake Oral 780 ml General: Alert, Oriented X3, Cooperative, No acute distress Abdomen: Other (mild tenderness ruq) Labs Laboratory Tests Test 12/16/16 14:20 12/16/16 16:15 12/17/16 04:05 12/18/16 05:45 Prothrombin Time 17.8SEC (11.7-14.0) Prothromb Time International Ratio 1.6 (0.8-1.1) Hemoglobin 7.9g/dL (13.0-17.5) 8.1g/dL (13.0-17.5) 8.4g/dL (13.0-17.5) Hematocrit 23.7% (39.0-53.0) 24.1% (39.0-53.0) 24.7% (39.0-53.0) Mean Corpuscular Hemoglobin Concent 33g/dL (31-37) 33g/dL (31-37) 34g/dL (31-37) White Blood Count 5.9x10^3/uL (4.0-11.0) Red Blood Count 2.83x10^6/uL (4.30-5.70) Mean Corpuscular Volume 87fL (79-100) Mean Corpuscular Hemoglobin 30pg (25-35) Red Cell Distribution Width 15.6% (11.5-14.5) Platelet Count 121x10^3/uL (140-400) Neutrophils (%) (Auto) 69% (31-73) Lymphocytes (%) (Auto) 18% (24-48) Monocytes (%) (Auto) 10% (0-9) Eosinophils (%) (Auto) 2% (0-3) Basophils (%) (Auto) 1% (0-3) Neutrophils # (Auto) 4.1x10^3uL (1.8-7.7) Lymphocytes # (Auto) 1.1x10^3/uL (1.0-4.8) Monocytes # (Auto) 0.6x10^3/uL (0.0-1.1) Eosinophils # (Auto) 0.1x10^3/uL (0.0-0.7) Basophils # (Auto) 0.1x10^3/uL (0.0-0.2) Sodium Level 144mmol/L (136-145) Potassium Level 3.5mmol/L (3.5-5.1) Chloride Level 112mmol/L (98-107) Carbon Dioxide Level 24mmol/L (21-32) Anion Gap 8 (6-14) Blood Urea Nitrogen 14mg/dL (8-26) Creatinine 0.9mg/dL (0.7-1.3) Estimated GFR (Cockcroft-Gault) 83.9 BUN/Creatinine Ratio 16 (6-20) Glucose Level 87mg/dL (70-99) Calcium Level 8.4mg/dL (8.5-10.1) Total Bilirubin 1.5mg/dL (0.2-1.0) Aspartate Amino Transf (AST/SGOT) 49U/L (15-37) Alanine Aminotransferase (ALT/SGPT) 30U/L (16-63) Alkaline Phosphatase 160U/L (46-116) Total Protein 5.8g/dL (6.4-8.2) Albumin 1.9g/dL (3.4-5.0) Albumin/Globulin Ratio 0.5 (1.0-1.7) Laboratory Tests Test 12/18/16 05:45 White Blood Count 5.9x10^3/uL (4.0-11.0) Red Blood Count 2.83x10^6/uL (4.30-5.70) Hemoglobin 8.4g/dL (13.0-17.5) Hematocrit 24.7% (39.0-53.0) Mean Corpuscular Volume 87fL (79-100) Mean Corpuscular Hemoglobin 30pg (25-35) Mean Corpuscular Hemoglobin Concent 34g/dL (31-37) Red Cell Distribution Width 15.6% (11.5-14.5) Platelet Count 121x10^3/uL (140-400) Neutrophils (%) (Auto) 69% (31-73) Lymphocytes (%) (Auto) 18% (24-48) Monocytes (%) (Auto) 10% (0-9) Eosinophils (%) (Auto) 2% (0-3) Basophils (%) (Auto) 1% (0-3) Neutrophils # (Auto) 4.1x10^3uL (1.8-7.7) Lymphocytes # (Auto) 1.1x10^3/uL (1.0-4.8) Monocytes # (Auto) 0.6x10^3/uL (0.0-1.1) Eosinophils # (Auto) 0.1x10^3/uL (0.0-0.7) Basophils # (Auto) 0.1x10^3/uL (0.0-0.2) Sodium Level 144mmol/L (136-145) Potassium Level 3.5mmol/L (3.5-5.1) Chloride Level 112mmol/L (98-107) Carbon Dioxide Level 24mmol/L (21-32) Anion Gap 8 (6-14) Blood Urea Nitrogen 14mg/dL (8-26) Creatinine 0.9mg/dL (0.7-1.3) Estimated GFR (Cockcroft-Gault) 83.9 BUN/Creatinine Ratio 16 (6-20) Glucose Level 87mg/dL (70-99) Calcium Level 8.4mg/dL (8.5-10.1) Total Bilirubin 1.5mg/dL (0.2-1.0) Aspartate Amino Transf (AST/SGOT) 49U/L (15-37) Alanine Aminotransferase (ALT/SGPT) 30U/L (16-63) Alkaline Phosphatase 160U/L (46-116) Total Protein 5.8g/dL (6.4-8.2) Albumin 1.9g/dL (3.4-5.0) Albumin/Globulin Ratio 0.5 (1.0-1.7) Problem List Problems Medical Problems: (1) GI bleed Status: Acute (2) Lactic acidosis Status: Acute (3) Liver function abnormality Status: Acute Assessment/Plan hgb stable medical management Problems: IGNACIA BENNETT MD 12/18/16 0949: SURGICAL PROGRESS NOTE Assessment/Plan Pt seen and examined. Agrre with Jesus's note Pt without c/o abd soft OK for d/c Problems: VERA MILLER APRN Dec 18, 2016 08:55 IGNACIA BENNETT MD Dec 18, 2016 09:49
[2016-12-18 11:00] VITALS: BP 112/51
[2016-12-18 15:00] VITALS: BP 109/56
--- NOTE | 2016-12-18 15:30 | PDOC ---
PROGRESS NOTES Chief Complaint Chief Complaint maroon hematochezia ASSESSMENT AND PLAN: 1. LGIB: suspected diverticular bleed. resolving 2. Anemia: acute blood loss. seems to be stabilizing after PRBC x4. monitor for another 24-48h. increase PO iron to at least bid for the next 6 months minimum 3. EtOH cirrhosis: no acute issues 4. JESSICA: 2/2 vasomotor/dehydration. resolved 5. CKD3: creat at baseline 6. HTN, HLD: no acute issues. cont home meds 7. COPD: no acute issues. nebs PRN 8. Protein malnutrition: moderate, prob partially due to liver dysfxn. protein rich diet 9. Dispo: D/C home Vitals Vitals Vital Signs Date Time Temp Pulse Resp B/P Pulse Ox O2 Delivery O2 Flow Rate FiO2 12/18/16 15:00 98.5 78 20 109/56 98 Room Air 98.5 Physical Exam General: Alert, Oriented X3, Cooperative, No acute distress Heart: Regular rate, Normal S1, Normal S2, No murmurs Lungs: Clear, Other Abdomen: Other (mild tenderness ruq) Extremities: No clubbing, No cyanosis Skin: No breakdown, No significant lesion Labs LABS Laboratory Tests Test 12/18/16 05:45 White Blood Count 5.9x10^3/uL (4.0-11.0) Red Blood Count 2.83x10^6/uL (4.30-5.70) Hemoglobin 8.4g/dL (13.0-17.5) Hematocrit 24.7% (39.0-53.0) Mean Corpuscular Volume 87fL (79-100) Mean Corpuscular Hemoglobin 30pg (25-35) Mean Corpuscular Hemoglobin Concent 34g/dL (31-37) Red Cell Distribution Width 15.6% (11.5-14.5) Platelet Count 121x10^3/uL (140-400) Neutrophils (%) (Auto) 69% (31-73) Lymphocytes (%) (Auto) 18% (24-48) Monocytes (%) (Auto) 10% (0-9) Eosinophils (%) (Auto) 2% (0-3) Basophils (%) (Auto) 1% (0-3) Neutrophils # (Auto) 4.1x10^3uL (1.8-7.7) Lymphocytes # (Auto) 1.1x10^3/uL (1.0-4.8) Monocytes # (Auto) 0.6x10^3/uL (0.0-1.1) Eosinophils # (Auto) 0.1x10^3/uL (0.0-0.7) Basophils # (Auto) 0.1x10^3/uL (0.0-0.2) Sodium Level 144mmol/L (136-145) Potassium Level 3.5mmol/L (3.5-5.1) Chloride Level 112mmol/L (98-107) Carbon Dioxide Level 24mmol/L (21-32) Anion Gap 8 (6-14) Blood Urea Nitrogen 14mg/dL (8-26) Creatinine 0.9mg/dL (0.7-1.3) Estimated GFR (Cockcroft-Gault) 83.9 BUN/Creatinine Ratio 16 (6-20) Glucose Level 87mg/dL (70-99) Calcium Level 8.4mg/dL (8.5-10.1) Total Bilirubin 1.5mg/dL (0.2-1.0) Aspartate Amino Transf (AST/SGOT) 49U/L (15-37) Alanine Aminotransferase (ALT/SGPT) 30U/L (16-63) Alkaline Phosphatase 160U/L (46-116) Total Protein 5.8g/dL (6.4-8.2) Albumin 1.9g/dL (3.4-5.0) Albumin/Globulin Ratio 0.5 (1.0-1.7) Review of Systems Review of Systems anxious, but no significant abd issues Comment Review of Relevant I have reviewed the following items claire (where applicable) has been applied. Labs Laboratory Tests Test 12/16/16 16:15 12/17/16 04:05 12/18/16 05:45 Hemoglobin 7.9g/dL (13.0-17.5) 8.1g/dL (13.0-17.5) 8.4g/dL (13.0-17.5) Hematocrit 23.7% (39.0-53.0) 24.1% (39.0-53.0) 24.7% (39.0-53.0) Mean Corpuscular Hemoglobin Concent 33g/dL (31-37) 33g/dL (31-37) 34g/dL (31-37) White Blood Count 5.9x10^3/uL (4.0-11.0) Red Blood Count 2.83x10^6/uL (4.30-5.70) Mean Corpuscular Volume 87fL (79-100) Mean Corpuscular Hemoglobin 30pg (25-35) Red Cell Distribution Width 15.6% (11.5-14.5) Platelet Count 121x10^3/uL (140-400) Neutrophils (%) (Auto) 69% (31-73) Lymphocytes (%) (Auto) 18% (24-48) Monocytes (%) (Auto) 10% (0-9) Eosinophils (%) (Auto) 2% (0-3) Basophils (%) (Auto) 1% (0-3) Neutrophils # (Auto) 4.1x10^3uL (1.8-7.7) Lymphocytes # (Auto) 1.1x10^3/uL (1.0-4.8) Monocytes # (Auto) 0.6x10^3/uL (0.0-1.1) Eosinophils # (Auto) 0.1x10^3/uL (0.0-0.7) Basophils # (Auto) 0.1x10^3/uL (0.0-0.2) Sodium Level 144mmol/L (136-145) Potassium Level 3.5mmol/L (3.5-5.1) Chloride Level 112mmol/L (98-107) Carbon Dioxide Level 24mmol/L (21-32) Anion Gap 8 (6-14) Blood Urea Nitrogen 14mg/dL (8-26) Creatinine 0.9mg/dL (0.7-1.3) Estimated GFR (Cockcroft-Gault) 83.9 BUN/Creatinine Ratio 16 (6-20) Glucose Level 87mg/dL (70-99) Calcium Level 8.4mg/dL (8.5-10.1) Total Bilirubin 1.5mg/dL (0.2-1.0) Aspartate Amino Transf (AST/SGOT) 49U/L (15-37) Alanine Aminotransferase (ALT/SGPT) 30U/L (16-63) Alkaline Phosphatase 160U/L (46-116) Total Protein 5.8g/dL (6.4-8.2) Albumin 1.9g/dL (3.4-5.0) Albumin/Globulin Ratio 0.5 (1.0-1.7) Laboratory Tests Test 12/18/16 05:45 White Blood Count 5.9x10^3/uL (4.0-11.0) Red Blood Count 2.83x10^6/uL (4.30-5.70) Hemoglobin 8.4g/dL (13.0-17.5) Hematocrit 24.7% (39.0-53.0) Mean Corpuscular Volume 87fL (79-100) Mean Corpuscular Hemoglobin 30pg (25-35) Mean Corpuscular Hemoglobin Concent 34g/dL (31-37) Red Cell Distribution Width 15.6% (11.5-14.5) Platelet Count 121x10^3/uL (140-400) Neutrophils (%) (Auto) 69% (31-73) Lymphocytes (%) (Auto) 18% (24-48) Monocytes (%) (Auto) 10% (0-9) Eosinophils (%) (Auto) 2% (0-3) Basophils (%) (Auto) 1% (0-3) Neutrophils # (Auto) 4.1x10^3uL (1.8-7.7) Lymphocytes # (Auto) 1.1x10^3/uL (1.0-4.8) Monocytes # (Auto) 0.6x10^3/uL (0.0-1.1) Eosinophils # (Auto) 0.1x10^3/uL (0.0-0.7) Basophils # (Auto) 0.1x10^3/uL (0.0-0.2) Sodium Level 144mmol/L (136-145) Potassium Level 3.5mmol/L (3.5-5.1) Chloride Level 112mmol/L (98-107) Carbon Dioxide Level 24mmol/L (21-32) Anion Gap 8 (6-14) Blood Urea Nitrogen 14mg/dL (8-26) Creatinine 0.9mg/dL (0.7-1.3) Estimated GFR (Cockcroft-Gault) 83.9 BUN/Creatinine Ratio 16 (6-20) Glucose Level 87mg/dL (70-99) Calcium Level 8.4mg/dL (8.5-10.1) Total Bilirubin 1.5mg/dL (0.2-1.0) Aspartate Amino Transf (AST/SGOT) 49U/L (15-37) Alanine Aminotransferase (ALT/SGPT) 30U/L (16-63) Alkaline Phosphatase 160U/L (46-116) Total Protein 5.8g/dL (6.4-8.2) Albumin 1.9g/dL (3.4-5.0) Albumin/Globulin Ratio 0.5 (1.0-1.7) Medications Current Medications Iohexol (Omnipaque 300 Mg/ml) 75 ml 1X ONCE IV Last administered on 12/13/16 15:15; Start 12/13/16 at 14:45; Stop 12/13/16 at 14:46; Status DC Info 1 each 1 each PRN DAILY PRN MC SEE COMMENTS; Start 12/13/16 at 14:45; Stop 12/15/16 at 14:44; Status DC Ceftriaxone Sodium 50 ml @ 100 mls/hr 1X ONCE IV ; Start 12/13/16 at 15:45; Stop 12/13/16 at 16:14; Status DC Pantoprazole Sodium/Sodium Chloride (Protonix Iv/Iv Sodium Chloride 0.9% 100ml) 100 ml @ 10 mls/hr 1X ONCE IV Last administered on 12/13/16 16:48; Start at 16:00; Stop 12/14/16 at 01:59; Status DC Pantoprazole Sodium 80 mg 80 mg 1X ONCE IVP Last administered on 12/13/16 16: 47; Start 12/13/16 at 15:45; Stop 12/13/16 at 15:50; Status DC Octreotide Acetate/Sodium Chloride (Sandostatin/Iv Sodium Chloride 0.9% 100ml) 101 ml @ 0 mls/hr CONT PRN IV SEE I/O RECORD Last administered on 12/13/16 19: 02; Start 12/13/16 at 16:00; Stop 12/13/16 at 17:05; Status DC Octreotide Acetate 100 mcg 100 mcg 1X ONCE IV Last administered on 12/13/16 18:06; Start 12/13/16 at 15:45; Stop 12/14/16 at 10:35; Status DC Sodium Chloride 1,000 ml @ 1,000 mls/hr 1X ONCE IV Last administered on 16:46; Start 12/13/16 at 16:00; Stop 12/13/16 at 16:59; Status DC Phytonadione 10 mg/Sodium Chloride 51 ml @ 102 mls/hr 1X ONCE IV Last administered on 12/13/16 18:51; Start 12/13/16 at 16:45; Stop 12/13/16 at 17:14 ; Status DC Sodium Chloride 1,000 ml @ 1,000 mls/hr 1X ONCE IV ; Start 12/13/16 at 16:45; Stop 12/13/16 at 17:44; Status DC Sodium Chloride 1,000 ml @ 150 mls/hr CONT PRN IV SEE I/O RECORD Last administered on 12/14/16 05:37; Start 12/13/16 at 16:45; Stop 12/14/16 at 10:54 ; Status DC Multivitamins/ Minerals/Thiamine HCl/Folic Acid/ Sodium Chloride (Infuvite Adult / Iv Sodium Chloride 0.9% 1000ml Bag) 1,011.2 ml @ 100 mls/ hr DAILY IV Last administered on 12/14/16 09:38; Start 12/13/16 at 17:00; Stop 12/14/16 at 20:57 ; Status DC Multivitamins/ Calcium (Thera M Plus) 1 tab DAILY PO Last administered on 08:15; Start 12/14/16 at 09:00 Lorazepam (Ativan) 2 mg PRN Q1HR PRN IV For CIWA 8-14 Last administered on 12/14 02:09; Start 12/13/16 at 16:45 Lorazepam (Ativan) 4 mg PRN Q1HR PRN IV For CIWA 15 or greater; Start 12/13/16 at 16:45 Prednisone (Prednisone) 30 mg 1X ONCE PO ; Start 12/13/16 at 17:00; Stop at 17:28; Status DC Folic Acid (Folic Acid) 1 mg DAILY PO Last administered on 12/18/16 08:15; Start 12/15/16 at 09:00 Hydroxychloroquine Sulfate (Plaquenil) 200 mg BID PO ; Start 12/13/16 at 21:00; Status UNV Hydroxychloroquine Sulfate (Plaquenil) 200 mg BID PO Last administered on 08:15; Start 12/13/16 at 21:00 Prednisone (Prednisone) 5 mg DAILY PO ; Start 12/14/16 at 09:00; Stop 12/14/16 at 09:00; Status DC Tamsulosin HCl (Flomax) 0.4 mg QHS PO Last administered on 12/17/16 20:08; Start 12/13/16 at 21:00 Thiamine HCl (Vitamin B-1) 100 mg BID PO Last administered on 12/18/16 08:15; Start 12/13/16 at 21:00 Tramadol HCl (Ultram) 50 mg PRN Q6HRS PO ; Start 12/13/16 at 17:00; Stop at 17:21; Status DC Zolpidem Tartrate (Ambien) 5 mg QHS PO Last administered on 12/17/16 20:09; Start 12/13/16 at 21:00 Prednisone (Prednisone) 20 mg DAILY PO Last administered on 12/18/16 08:15; Start 12/14/16 at 09:00 Hydrocortisone Sodium Succinate (Solu-Cortef) 100 mg 1X ONCE IV ; Start at 17:00; Stop 12/13/16 at 17:09; Status DC Tramadol HCl 50 mg 50 mg PRN Q6HRS PRN PO MODERATE PAIN Last administered on 20:43; Start 12/13/16 at 17:21 Octreotide Acetate 500 mcg/ Sodium Chloride 101 ml @ 0 mls/hr CONT PRN IV SEE I /O RECORD Last administered on 12/14/16 05:33; Start 12/13/16 at 19:15; Stop at 10:35; Status DC Pantoprazole Sodium/Sodium Chloride (Protonix Iv/Iv Sodium Chloride 0.9% 100ml) 100 ml @ 10 mls/hr Q10H IV Last administered on 12/14/16 03:52; Start at 04:00; Stop 12/14/16 at 10:35; Status DC Pantoprazole Sodium (Protonix) 40 mg DAILYAC PO Last administered on 12/18/16 08:15; Start 12/15/16 at 07:30 Ferrous Sulfate (Feosol) 325 mg DAILYWBKFT PO Last administered on 12/17/16 09 :11; Start 12/16/16 at 11:30; Stop 12/17/16 at 23:58; Status DC Ferrous Sulfate (Feosol) 325 mg BIDAC PO Last administered on 12/18/16 08:15; Start 12/18/16 at 07:30 Active Scripts Active Vitamin B-1 (Thiamine Hcl) 100 Mg Tablet 100 Mg PO BID Folic Acid 1 Mg Tablet 1 Mg PO DAILY Flomax (Tamsulosin Hcl) 0.4 Mg Cap.er.24h 0.4 Mg PO QHS Reported Omeprazole 20 Mg Capsule.dr 1 Cap PO DAILY Melatonin 5 Mg Tablet 5 Mg PO HS Tramadol Hcl 50 Mg Tablet 1 Tab PO PRN Q6HRS Alendronate Sodium 70 Mg Tablet 1 Tab PO WEEKLY Ambien (Zolpidem Tartrate) 5 Mg Tablet 1 Tab PO QHS Atorvastatin Calcium 10 Mg Tablet 1 Tab PO HS Prednisone 5 Mg Tablet 5 Mg PO DAILY Plaquenil (Hydroxychloroquine Sulfate) 200 Mg Tablet 200 Mg PO BID Plaquenil (Hydroxychloroquine Sulfate) 200 Mg Tablet 200 Mg PO BID Cimzia (Certolizumab Pegol) 400 Mg/2 Ml Syringekit 400 Mg SQ Vitals/I & O Vital Sign - Last 24 Hours 12/17/16 12/17/16 12/17/16 12/18/16 19:00 20:06 23:00 07:00 Temp 98.5 98.1 98.7 98.5 98.1 98.7 Pulse 72 67 93 Resp 18 19 20 B/P 119/54 110/64 89/47 Pulse Ox 97 97 93 O2 Delivery Room Air Room Air Room Air Room Air 12/18/16 12/18/16 12/18/16 12/18/16 07:10 08:00 11:00 15:00 Temp 98.7 98.5 98.7 98.5 Pulse 78 78 Resp 20 20 B/P 104/50 112/51 109/56 Pulse Ox 96 98 O2 Delivery Room Air Room Air Room Air Intake and Output 12/17/16 12/17/16 12/18/16 15:00 23:00 07:00 Intake Total 780 ml Balance 780 ml SEAN DOUGLAS MD Dec 18, 2016 15:30
--- NOTE | 2016-12-18 18:28 | DISCH ---
DISCHARGE INSTRUCTIONS Condition on Discharge Condition on Discharge: Stable Activity After Discharge Activity Instructions for Disc: No restrictions Diet after Discharge Diet after Discharge: Adrien Contacting the DR. after DC Call your doctor for: Concerns you may have Follow-Up Follow up with: PCP SEAN LOPEZ MD Dec 18, 2016 18:28
[2016-12-18] MEDS ORDERED: PANT40TA5 PO (18:30)
[2016-12-18] MEDS ORDERED: FERR325T72 PO (18:30)
--- NOTE | 2016-12-20 22:34 | DS ---
DATE OF DISCHARGE: 12/18/2016 CHIEF COMPLAINT: Lower GI bleed. HOSPITAL COURSE: The patient is a 66-year-old gentleman who presented to the Emergency Room with hematochezia. A CT was consistent with diverticulitis and he was admitted for management and care. He received 4 units of blood for significant anemia. He, however, stabilized with his hemoglobin and was observed for an additional 48 hours after transfusion. No further bleed was observed. All his other medical issues including alcoholic cirrhosis, chronic renal failure, hypertension, hyperlipidemia, and COPD remained stable and were maintained on home medications. DISCHARGE PHYSICAL EXAMINATION: Please refer to note from same day. DISCHARGE DISPOSITION: To home. DISCHARGE CONDITION: Improved. DISCHARGE DIAGNOSES: Diverticulitis, lower gastrointestinal bleed. DISCHARGE MEDICATIONS: Please refer to MAR. DISCHARGE INSTRUCTIONS: The patient will follow up with his primary care physician in 1-2 weeks[address] D[address]: AC/nts JOB#: [id number] / [id number] JITENDRA Espinoza MD
== END 2016-12-18 18:58 | disposition home or self-care (01) | DRG 377 ==
LOC: ER 12:51 → 1 WEST ICU 15:48 → 5 SOUTH 12-14 16:00
PROVIDERS: ADMIT Internal Medicine; ATTEND Internal Medicine
PROC: 30233N1 Transfusion of Nonautologous Red Blood Cells into Peripheral Vein, Percutaneous Approach (ICD-10-PCS; principal; 2016-12-13)
DX: K92.2 Gastrointestinal hemorrhage, unspecified (principal); N17.0 Acute kidney failure with tubular necrosis; E43 Unspecified severe protein-calorie malnutrition; D62 Acute posthemorrhagic anemia; D68.9 Coagulation defect, unspecified; E87.2 Acidosis; K76.6 Portal hypertension; K57.92 Diverticulitis of intestine, part unspecified, without perforation or abscess without bleeding; F10.239 Alcohol dependence with withdrawal, unspecified; D69.6 Thrombocytopenia, unspecified; E78.00 Pure hypercholesterolemia, unspecified; E78.5 Hyperlipidemia, unspecified; E86.1 Hypovolemia; I25.10 Atherosclerotic heart disease of native coronary artery without angina pectoris; N18.3 Chronic kidney disease, stage 3 (moderate); M81.0 Age-related osteoporosis without current pathological fracture; M19.90 Unspecified osteoarthritis, unspecified site; M54.5 Low back pain; B19.20 Unspecified viral hepatitis C without hepatic coma; K57.90 Diverticulosis of intestine, part unspecified, without perforation or abscess without bleeding; K70.10 Alcoholic hepatitis without ascites; K70.30 Alcoholic cirrhosis of liver without ascites; M06.9 Rheumatoid arthritis, unspecified; I12.9 Hypertensive chronic kidney disease with stage 1 through stage 4 chronic kidney disease, or unspecified chronic kidney disease; M43.16 Spondylolisthesis, lumbar region; J44.9 Chronic obstructive pulmonary disease, unspecified; K21.9 Gastro-esophageal reflux disease without esophagitis; Z80.0 Family history of malignant neoplasm of digestive organs; Z85.828 Personal history of other malignant neoplasm of skin; Z87.442 Personal history of urinary calculi; Z87.891 Personal history of nicotine dependence; Z90.49 Acquired absence of other specified parts of digestive tract; Z68.22 Body mass index [BMI] 22.0-22.9, adult
CPT/HCPCS: 36415; 74022; 74177; 78278; 80048; 80053; 81001; 82274; 83605; 83690; 84484; 85014; 85018; 85027; 85610; 85730; 86850; 86900; 86901; 86920; 87641; 93005; 96374; 96375; A9560; C9113; G0481; J2060; J2354; J3430; J7030; J7512; P9016; Q9967; 99285-25